=== PATIENT | male | born 1940 | race Caucasian/White ===

== ENCOUNTER 2020-03-11 15:30 | Outpatient (RCR) | payer MEDICARE, SELFPAY ==
--- NOTE | 2020-01-14 15:31 | PTOPEVAL ---
INITIAL PHYSICAL THERAPY EVALUATION and PLAN OF CARE Thank you for referring Casey to [facility]. He will be seen 3x/wk x 1 wk, 2x/wk x 3 wks in PT. Please review, sign, date and return this plan of care KACEY. I agree with and certify that the following plan of care is medically necessary. Referring Physician Date Admitting Provider: Attending Provider: PHYSICIAN NOT ON STAFF Referring Provider: *PT Outpatient Evaluation Start: 01/14/20 13:25 Freq: Status: Active Protocol: Document 01/14/20 13:25 KRISTEN (Rec: 01/14/20 15:13 KRISTEN [id number]) Therapy Assessment Status Assessment Status Assessment Status Evaluation Outpatient Past Medical History Neurological History Hx Neurological Disorders No Significant History Cardiovascular History Hx Hypercholesterolemia Yes Hx Hypertension Yes Respiratory History Hx Respiratory Disorders No Significant History Gastrointestinal History Hx Appendectomy Yes: 1977 Genitourinary History Hx Genitourinary Disorders No Significant History Musculoskeletal History Hx Orthopedic Surgery Yes: R hip resurfaces-2005, R TKA 12/2019,carpal tunnel B 1977 Endocrine History Hx Endocrine Disorders No Significant History HEENT History Hx Cataracts Yes Evaluation Information Problem Diagnosis s/p R TKA Onset 12/23/2019 Subjective Information hospitalized 3 days home Query Text:As Reported By Patient/ health - 3x/wk x 2 wks, 2x/wk Family last week c/o's stiffness Dressing removed on Sunday01/12/20 icing 3x/day back to usual activities - except for vacuuming - doing meals - getting ready to return to driving Sleeping - difficult - R knee pain will awaken him - likes to keep knees bent - discomfort with straightening leg. 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
--- NOTE | 2020-02-11 16:07 | PTOPEVAL ---
PHYSICAL THERAPY RE-EVALUATION and UPDATED PLAN OF CARE Thank you for referring Casey Sheriff to [facility]. He has made good progress towards goals set, but still needs further R eccentric Quad and hip abduction strengthening and upgrading of functional abilities. He will be seen 2x/wk x 2 wks and 1x/wk x 2 wks. Please review, sign, date and return this plan of care KACEY. I agree with and certify that the following plan of care is medically necessary. Referring Physician Date Admitting Provider: Attending Provider: PHYSICIAN NOT ON STAFF Referring Provider: *PT Outpatient Evaluation Start: 01/14/20 13:25 Freq: Status: Active Protocol: Document 02/11/20 14:35 KRISTEN (Rec: 02/11/20 16:07 KRISTEN [id number]) Therapy Assessment Status Assessment Status Assessment Status Re-evaluation Evaluation Information Problem Subjective Information Casey reports sleeping is Query Text:As Reported By Patient/ improving but will still Family awaken from sleep. Placing ice on the knee helps him return to sleep. He also uses heating pad on R inner thigh for discomfort there from tight musculature. Able to walk carefully on grass over to son's home but avoid walking in field where there were larger dirt clods. Going up and down stairs more - comfortable going up, not as much going down. Pain Assessment Timing of Pain Assessment Timing of Pain Assessment Assessment Pain Scale Pain Scale Used Numeric (1 - 10) Self Report Pain Assessment Right Knee(s) Reported Pain Level 0 Lowest Pain Intensity 0 Greatest Pain Intensity 2 Pain Score Pain Score 0: Self Report Lower Extremity Range of Motion Knee Range of Motion Right Knee Flexion Range of Motion - Active 127 Knee Extension Range of Motion - Active 0 Query Text: Knee Range of Motion Limitations Soft Tissue Restriction Knee Range of Motion Comments sitting - 125 above measurements done in supine Lower Extremity Muscle Strength Testing Hip Strength Right Hip Flexion Strength 4+ Good + Hip Extension Strength 5 Normal Hip Abduction Strength 4- Good - Hip Medial Rotation Strength 5 Normal Hip Lateral Rotation Strength 4 Good Left Hip Flexion Strength 5 Normal Hip Extension Strength 4 Good Hip Abduction Strength 4 Good Hip Medial Rotation Strength 5 Normal
--- NOTE | 2020-03-11 16:52 | PTOPEVAL ---
PHYSICAL THERAPY DISCHARGE SUMMARY Thank you for referring Casey Sheriff to [facility]. Casey was seen for a total of 16 visits. He has met all goals set. I agree with Casey's discharge from PT. Referring Physician Date Admitting Provider: Attending Provider: PHYSICIAN NOT ON STAFF Referring Provider: *PT Outpatient Evaluation Start: 01/14/20 13:25 Freq: Status: Active Protocol: Document 03/11/20 15:30 KRISTEN (Rec: 03/11/20 16:51 KRISTEN [email or web address]) Therapy Assessment Status Assessment Status Assessment Status Discharge Evaluation Information Problem Subjective Information Casey reports that he hasn't Query Text:As Reported By Patient/ used ice or heat on R knee/leg Family for the last 2 weeks. He is doing better with reciprocally climbing back steps - railing to hold onto. Able to walk over to son's home - uneven ground, rocks, etc without problems. No difficulty performing usual ADLs, IADLs. Pain Assessment Timing of Pain Assessment Timing of Pain Assessment Assessment Pain Scale Pain Scale Used Numeric (1 - 10) Self Report Pain Assessment Right Knee(s) Reported Pain Level 0 Lowest Pain Intensity 0 Greatest Pain Intensity 0 Pain Score Pain Score 0: Self Report Lower Extremity Range of Motion Knee Range of Motion Right Knee Flexion Range of Motion - Active 135 Knee Extension Range of Motion - Active 0 Query Text: Lower Extremity Muscle Strength Testing Hip Strength Right Hip Flexion Strength 4+ Good + Hip Extension Strength 5 Normal Hip Abduction Strength 4+ Good + Hip Medial Rotation Strength 5 Normal Hip Lateral Rotation Strength 4+ Good + Knee Strength Right Knee Flexion Strength 5 Normal Knee Extension Strength 5 Normal Balance Assessment Time Up Go (TUG) Assistive Devices None Comments 11.19 sec 5 Time Sit to Stand Time in Seconds 14.31 5 Time Sit to Stand Comments no hands used with testing Query Text:Normative Data: If Greater Than 15 Seconds, 74% Increase Risk for Recurrent Falls Gait Assessment Gait Pattern Assessment Other Gait Observations symmetrical gait pattern - stance/swing phases, no assistive device, normal bhumi PT Clinical Summary Clinical Summary Protocol: PTEVCODE PT Clinical Summary WOMAC pain score 15% physica
== END 2020-03-12 08:29 | disposition home or self-care (01) ==
LOC: ANHPT 15:30
DX: Z47.1 Aftercare following joint replacement surgery (principal); Z96.651 Presence of right artificial knee joint
CPT/HCPCS: 97110; 97161

== ENCOUNTER 2021-01-05 09:00 | Outpatient (RCR) | payer MEDICARE, SELFPAY ==
--- NOTE | 2020-11-26 16:24 | PTOPEVAL ---
INITIAL PHYSICAL THERAPY EVALUATION and PLAN OF CARE Thank you for referring Casey Sheriff to [facility].? Casey is scheduled to be seen for physical therapy? 1x/week for 4 weeks. Please review, sign, date and return this plan of care KACEY. I agree with and certify that the following plan of care is medically necessary. Referring Physician Date Admitting Provider: Attending Provider: Urvashi Perdomo, ANP Referring Provider: *PT Outpatient Evaluation Start: 11/26/20 15:07 Freq: Status: Active Protocol: Document 11/26/20 15:05 KRISTEN (Rec: 11/26/20 16:23 KRISTEN [id number]) Therapy Assessment Status Assessment Status Assessment Status Evaluation Outpatient Past Medical History Past Medical History Source of Past Medical History Recalled from Previous Visit, Confirmed with Patient/Family Neurological History Hx Neurological Disorders No Significant History Cardiovascular History Hx Aneurysm Yes: 4 cm in size - watching it Hx Hypercholesterolemia Yes Hx Hypertension Yes Respiratory History Hx Respiratory Disorders No Significant History Gastrointestinal History Hx Appendectomy Yes: 1977 Genitourinary History Hx Genitourinary Disorders No Significant History Musculoskeletal History Hx Orthopedic Surgery Yes: R hip resurfaces-2005, R TKA 12/2019,carpal tunnel B 1977 Endocrine History Hx Endocrine Disorders No Significant History HEENT History Hx Cataracts Yes Hx Tonsillectomy Yes: at age 8 Evaluation Information Problem Diagnosis balance issues/ LE weakness Onset a little bit prior to R TKA Subjective Information Difficulty on uneven ground - Query Text:As Reported By Patient/ sometimes needs to over Family correct - being aware of change of position - may need to take an extra step to prevent from losing his balance. His mother had similar issues. In shower - with eyes closed - needs to be sure he is touching the wall with an elbow or forearm to be sure that he doesn't lose his balance. 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
--- NOTE | 2020-12-15 09:26 | PCPTNOTE ---
Patient did not show up for scheduled appointment this date. Phoned patient - he thought his appointment was at 3:00 pm this date. Rescheduled him for 9:00 12/17/2020.
--- NOTE | 2021-01-05 11:22 | PTOPEVAL ---
PHYSICAL THERAPY DISCHARGE SUMMARY Thank you for referring Casey Sheriff to [facility].? 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 He is ready for discharge from PT to [facility]. I agree with Casey's discharge from PT. Referring Physician Date Admitting Provider: Attending Provider: Urvashi Perdomo, ANP Referring Provider: Therapy Assessment Status Assessment Status Assessment Status Discharge Evaluation Information Problem Diagnosis balance issues/ LE weakness Subjective Information Casey reports that vertigo is Query Text:As Reported By Patient/ still there - but not as Family severe. Doing corrective technique - barbeque roll - on a daily basis. Doing okay with walking on uneven ground. Still has his misstep every once in awhile but some improved control. Pain Assessment Timing of Pain Assessment Timing of Pain Assessment Assessment Self Report Self Report Pain Level 0 Pain Score Pain Score 0: Self Report Lower Extremity Muscle Strength Testing Hip Strength Bilateral Hip Flexion Strength 4+ Good + Hip Extension Strength 5 Normal Hip Abduction Strength 4+ Good + Hip Medial Rotation Strength 5 Normal Hip Strength Comments ER - R 3+/5 L 5/5 Balance Assessment Dupree Balance Assessment Sitting to Standing Independent w/out Hands Unsupported Stance Ability Safely- 2 minutes Sitting Unsupported, Feet on Floor Safely- 2 minutes Standing to Sitting Safely, Minimal Hand Use Transfer Ability Safely, Minimal Hand Use Unsupported Stance- Eyes Closed Safely, 10 seconds Unsupported Stance- Feet Together Independent, 1 minute Reaching Forward while Standing Confidently, 10 inches decision support analyst Object From Floor Independent/Safe Look Behind Shoulder - Standing Shifts Weight Well Turning 360 Degrees Turns Bilateral, < 4 secs Unsupported Stance, Alternating Feet on (I)- 8 Steps in 20 secs Stair Unsupported Tandem Stance Small Step- 30 seconds Unilateral Leg Stance Lifts Leg/Holds > 3 secs DUPREE Balance Evaluation Total Score (/56 52 points) Comments standing on foam - with eyes open - mild increase with sway with eyes closed - mild sway initially - then good control - stopped testing at 30 sec. Time Up Go (TUG) Assistive Devices None Comments 12.37 sec 5 Time Sit to Stand 5 Time Si
== END 2021-01-13 11:24 | disposition home or self-care (01) ==
LOC: ANHHIPT 09:00
PROVIDERS: PCP Physician Assistant Medical; Visit Provider Physician Assistant Medical
DX: R26.89 Other abnormalities of gait and mobility (principal); M62.81 Muscle weakness (generalized)
CPT/HCPCS: 97110; 97162

== ENCOUNTER 2021-07-15 07:36 | Outpatient (CLI) | payer MEDICARE, SELFPAY | END 2021-07-15 07:37 | disposition home or self-care (01) | LOC: ANHAUDIO 07:41 | PROVIDERS: PCP Physician Assistant Medical; Visit Provider Otolaryngology | DX: R42 Dizziness and giddiness (principal) | CPT/HCPCS: 92537; 92540; 92546 ==

== ENCOUNTER 2022-09-14 07:13 | Outpatient (CLI) | payer MEDICARE, SELFPAY ==
--- NOTE | ~2022-09-14 | MR_ITS ---
EXAMINATION: MR brain/brain stem wo/w con DATE: 09/14/2022 08:31 INDICATION: Gait abnormality. TECHNIQUE: Magnetic resonance imaging (MRI) of the brain and brainstem was performed without and with 19 mL MultiHance intravenous contrast. COMPARISON: None. FINDINGS: There is an old infarct in right cerebellum. There is an old lacunar infarct in right cauda te nucleus. There is a developmental venous anomaly in left frontal lobe. There are scattered areas o f nonspecific increased T2-weighted signal intensity in the cerebral white matter. There is no intrac ranial hemorrhage, acute infarction, or abnormal intracranial mass lesion. The ventricles are normal in size. There are likely changes of ocular lens replacement surgeries. The paranasal sinuses are monalisa ar. The mastoid air cells are normal. IMPRESSION: 1. 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 2. Moderate nonspecific cerebral white matter disease, which likely represents chronic small vessel i schemic disease. Reviewed, dictated and finalized at location A. DEVELOPER IMPRESSION: 1. 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 2. Moderate nonspecific cerebral white matter disease, which likely represents chronic small vessel ischemic disease.
== END 2022-09-14 07:14 | disposition home or self-care (01) ==
PROVIDERS: PCP Family Medicine
DX: R26.9 Unspecified abnormalities of gait and mobility (principal); R94.02 Abnormal brain scan
CPT/HCPCS: 70553; A9577

== ENCOUNTER 2023-03-08 13:30 | Outpatient (RCR) | payer MEDICARE, SELFPAY ==
--- NOTE | 2023-02-08 14:56 | PTOPEVAL1 ---
Assessment and note entered by Emilie Irby, PT Evaluation Information Assessment Status Evaluation Diagnosis gait abnormality Onset 3-4 years Subjective Information Gradual onset, over the last 3-4 years has gotten significantly worse History of family balance issues with mother States he worries that he might fall, carries a cane with him in the car but hasn't used it. Reports showering and closing eyes, has to hang on to something Reports cannot stand on one foot. Denies dizzy spells Reported Pain Level Pain Score 1: Self Report Assessment PT Clinical Summary Pt reports decreased balance that has progressed over the last 3-4 years. Reports Neurologist found in MRI what may have been presence of a prior stroke, but otherwise is unremarkable. Pt denie's dizziness with position changes, but notes greatly increased balance deficit with eyes closed activities. Pt evaluation shows gait abnormalities , mildly decrease LE strength and ROM, and significant balance deficits especially with small base of support activities. Pt will benefit from physical therapy in order to improve vestibular system, balance, strength, and gait to improve pt confidence in mobility and activity. Plan of Care Interventions Gait Training,Neuro Re-education,Patient/Caregiver Educati,Therapeutic Activities,Therapeutic Exercise,Self-Care/Home Management PT Services Indicated Yes Treatment Frequency and 2x weekly x 8 weeks Duration These treatments will address the objective and functional deficits as defined above. The patient will be advanced safely and appropriately in order for the patient to progress towards his/her prior level of function. Additional exercises will be introduced and as well as a comprehensive home exercise program upon discharge, if needed, ?to ensure carryover of functional gains achieved in the clinic. This treatment plan has been reviewed and agreement upon by the patient.
--- NOTE | 2023-03-08 14:44 | PTOPDC ---
Assessment and note entered by Emilie Irby, PT Assessment Status Discharge Diagnosis gait abnormality Onset 3-4 years Subjective Information Pt reports still has to be very careful about his balance. Especially with uneven, rough ground, tall grass. Reports his sister said she thinks therapy is doing well b/c she couldn't hear him walking down the wills. Pt reports feels has made a small amount of improvement in walking since starting therapy. Pt feels is primarily pain in left hip effecting balance because favors left hip. Reported Pain Level Pain Score 3: Self Report Assessment PT Clinical Summary Pt has attended therapy consistently for balance and gait issues. States he feels mildly improved in his walking and balance, but his sister noticed that she can't hear him walk down the hallway any more. Evaluation shows improvements in DUPREE balance testing and in 5 times sit to stand testing. However in both balance tests and gait assessment, pt noted to favor left hip significantly. Pt has reported left hip pain of varying levels and has modified treatments in therapy based on left hip pain. Pt feels his hip pain is currently his largest limiting factor in his gait and balance and is addressing his hip pain with referral to Orthopeadic Specialist on 10/27. Evaluation today shows mild/moderately decreased ROM of the left hip, significantly decreased strength, flexibility issues with hip flexors, and tenderness and tone to the gluteus minimus with palpation. Pt will benefit from therapy to address both issues to improve overall functional ability. However pt has opted to seek therapy under care of Ortho for continuity of care at this time. Thus pt will continue therapy with additional focus on hip pain pending Orthopeadic consult findings is will be discharged from current plan of care.
== END 2023-03-08 15:06 | disposition still patient (30) ==
LOC: ANHHIPT 13:30
PROVIDERS: PCP Family Medicine
DX: R26.9 Unspecified abnormalities of gait and mobility (principal)
CPT/HCPCS: 97110; 97112; 97161

== ENCOUNTER 2023-06-11 08:45 | Outpatient (RCR) | payer MEDICARE, SELFPAY ==
--- NOTE | 2023-03-23 10:36 | PTOPEVAL1 ---
Assessment and note entered by Emilie Irby, PT Evaluation Information Assessment Status Evaluation Diagnosis Trochanteric Bursitis left hip Therapy Diagnosis Left hip pain, gait abnormality, weakness Onset over the last 6 months Subjective Information Saw Dr. Andrews for left hip pain 03/19/23. Didn 't see any change immediately but after a few days pain improved. Reports though a few days later was on tractor for 3 hours and then mower for 3 hours. Reports after these legs were shaky and weak, wasn't sure was going to make it into his house. MD advised use of a cane for ambulation. Reported Pain Level Pain Score 0: Self Report Assessment PT Clinical Summary Pt presents with c/o left hip pain for the last 6 months. Recently received a steroid shot earlier this week which after a few days improved pain however will still get pain up to 8/10 at worst rating since shot. Pt demos decreased flexibility and joint ROM, decreased strength, decreased balance, and gait abnormalities with therapy evaluation today. Thus patient will benefit from therapy to address deficits and decrease pain to allow function without pain. Plan of Care Interventions Electrical Stimulation,Hot Pack/Cold Pack,Manual Therapy,Neuro Re-education,Therapeutic Activities, Therapeutic Exercise,Ultrasound PT Services Indicated Yes Treatment Frequency and 2x weekly x 8 weeks Duration These treatments will address the objective and functional deficits as defined above. The patient will be advanced safely and appropriately in order for the patient to progress towards his/her prior level of function. Additional exercises will be introduced and as well as a comprehensive home exercise program upon discharge, if needed, ?to ensure carryover of functional gains achieved in the clinic. This treatment plan has been reviewed and agreement upon by the patient.
--- NOTE | 2023-04-16 10:03 | PTOPPROG ---
Assessment and note entered by Emilie Irby, PT Assessment Status Progress Diagnosis trochanteric Bursitis left hip Therapy diagnosis unsteadiness on feet, pain in left hip, weakness Onset over the last 6 months Subjective Information Pt reports hip is a 1-2/10. Pt reports when laying flat on back is when hip feels the best. 70% improvement overall, pain comes and goes, and concern is it coming back or if the steroid is wearing Reports exercise of forward and back cares me . Does not know when the point of no return is. Advised use of strap on wrist to keep cane within reach. Reports 50% improvement in balance and gait. States knows several more techniques that have been helpful Assessment PT Clinical Summary Pt reports feeling 70% improved overall in hip pain since steroid shot with Orthopeadic specialist. Only 30% remaining pt reports is due to fear of steroid wearing off. Pt reports for balance and ambulation feels 50% improved, stating has received a lot of education and tips to improve mobility he uses at home. He is consistent in home exercises and is currently consistent in use of cane when entering therapy sessions. Pt has met multiple goals for therapy however cont to require improvement in balance and especially sit> stand mobility. Pt has met goals for his hip pain, knowledge of home program, hip ROM, and flexibility to improve gait. Pt is progressing in his strength however appears to have regressed in sit>stand and gait secondary to increased time to perform activities. Pt demo's greatly improved ability to sit>stand after education and practice in clinic. Will benefit from continued therapy to continue progression and improvement in mobility. Plan of Care Interventions Electrical Stimulation,Hot Pack/Cold Pack,Manual Therapy,Neuro Re-education,Therapeutic Activities, Therapeutic Exercise,Ultrasound PT Services Indicated Yes Treatment Frequency and 2x weekly x 4 weeks Duration These treatments will address the objective and functional deficits as defined above. The patient will be advanced safely and appropriately in order for the patient to progress towards his/her prior level of function. Additional exercises will be introduced and as well as a comprehensive home exercise program upon discharge, if needed, ?to ensure carryover of functional gains achieved in the clinic. This treatment plan has been reviewed and agreement upon by the
--- NOTE | 2023-04-30 10:03 | PTOPPROG ---
Assessment and note entered by Emilie Irby, PT Assessment Status Progress Reports Diagnosis trochanteric Bursitis left hip, gait and balance Onset over the last 6 months Subjective Information Reports less pain in the left hip. Balance and gait reports is about the same Using cane for ambulation. Did a lot of walking yesterday and last night hip was burning but is better today. Was up to an 8/10 yesterday but was walking all day . Assessment PT Clinical Summary Pt reports increased hip pain yesterday after walking mulitple hours, but is better today. Cont to demo endurance and strength deficits, but improving balance and gait scores. Pt reports he is working on his walking, getting up and down the correct way and uses his cane consistently. Pt is going out of town for a few weeks and will practice his walking and mobility wihle he is gone . He would [facility], final education on balance and gait to empower patient to continue progression on his own. Plan of Care Interventions Electrical Stimulation,Hot Pack/Cold Pack,Manual Therapy,Neuro Re-education,Therapeutic Activities, Therapeutic Exercise,Ultrasound PT Services Indicated Yes Treatment Frequency and 2x weekly x 3-4 weeks upon return from vacation Duration These treatments will address the objective and functional deficits as defined above. The patient will be advanced safely and appropriately in order for the patient to progress towards his/her prior level of function. Additional exercises will be introduced and as well as a comprehensive home exercise program upon discharge, if needed, ?to ensure carryover of functional gains achieved in the clinic. This treatment plan has been reviewed and agreement upon by the patient.
--- NOTE | 2023-06-11 13:26 | PTOPDC ---
Assessment and note entered by Emilie Irby, PT Assessment Status Discharge Diagnosis trochanteric Bursitis left hip Onset over the last 6 months Subjective Information Self-perceived improvement:75% Every once in a while that hip will go up to a 2-3 /10 but this is the highest it's been recently. Pain increases with sitting long periods of ~2 hours. Was in the car multiple hours yesterday uses cushion that props him to his right which helps but yesterday didnt' have it. Feels still has balance deficits. Reported Pain Level Pain Score 0: Self Report Assessment PT Clinical Summary Pt has attended therapy consistently for left hip pain, strengthening, gait and balance issues. Pt has met all therapist related goals with exception of highest pain level being ranked at a 3/10 with goal of 2/10. Pt reports much improved overall with greater knowledge of mobility, and balance training, and greater ease of movement overall. Has been using his cane consistently for just in case and is minimally reliant on is in testing today. Pt reports feeling 75% improved overall with remainder being continued balance deficits. As patient has met all goals, and has been educated in appropriate mild deficits, pt is being discharged from therapy services at this time.
== END 2023-06-11 13:34 | disposition home or self-care (01) ==
LOC: ANHHIPT 08:45
PROVIDERS: PCP Family Medicine; Visit Provider Orthopaedic Surgery
DX: M70.62 Trochanteric bursitis, left hip (principal)
CPT/HCPCS: 97110; 97112; 97116; 97140; 97162; 97530; 97750

== ENCOUNTER 2023-12-31 14:32 | Outpatient (CLI) | payer MEDICARE, SELFPAY ==
--- NOTE | ~2023-12-31 | US_ITS ---
Renal-Bladder ultrasound Clinical History: Chronic kidney disease Technique: Real-time sonographic imaging of the kidneys and urinary bladder was performed. Findings: The right kidney measures 10.5 cm in length and the left kidney measures 9.4 cm. There is n o hydronephrosis or renal calculus identified. Renal cortical echogenicity is within normal limits. 3 .4 cm right upper pole renal cyst present.. 3.0 cm left upper pole renal cyst present. The urinary bladder is moderately distended at the time of this exam. No intraluminal echoes are iden tified. No abnormal wall thickening is seen. Impression: No significant abnormality seen. Reviewed, dictated and finalized at location . [facility] Impression: No significant abnormality seen.
== END 2023-12-31 14:33 | disposition home or self-care (01) ==
PROVIDERS: PCP Family Medicine; Visit Provider Internal Medicine Nephrology
DX: I12.9 Hypertensive chronic kidney disease with stage 1 through stage 4 chronic kidney disease, or unspecified chronic kidney disease (principal); N18.4 Chronic kidney disease, stage 4 (severe)
CPT/HCPCS: 76775

== ENCOUNTER 2024-03-11 11:15 | Outpatient (RCR) | payer MEDICARE, SELFPAY ==
--- NOTE | 2024-02-25 17:04 | OPREHPOC ---
Outpatient Therapy Plan of Care This is a Multidisciplinary Plan of Care that may contain components documented by all disciplines (PT, OT, and ST.) PT Goal 1 Goal Pt will be independent in HEP Pt will verbalize understanding of diagnosis and prognosis Target Visit 10 PT Problem 2 PT Problem #2 Pain PT Goal 1 Goal Pt will report lowest pain rating at 0/10 to show improvement in overall discomfort Target Visit 10 PT Goal 2 Goal Pt will report greatest pain level at 3/10 or less to improve ADLs and activities Target Visit 20 PT Problem 3 PT Problem #3 Impaired Strength PT Goal 1 Goal Pt will demo strength of 3+/5 ceirra in gluteus medius and ortiz Target Visit 12 PT Problem 4 PT Problem #4 Impaired Gait PT Goal 1 Goal Pt will demo 150 ft with LRAD in 2 min walk test Target Visit 10 PT Goal 2 Goal Pt will demo appropriate equal bhumi, and step length with LRAD Target Visit 20
--- NOTE | 2024-02-25 17:04 | PTOPEVAL1 ---
Assessment and note entered by Emilie Irby, PT Evaluation Information Assessment Status Evaluation Diagnosis weakness Therapy conditions oth. abnormalities of gait and mobility pain in left ankle/foot pain in right ankle/foot Onset 02/13/2024 Subjective Information Pt reports was in the hospital for one night because ankles were so painful and couldn't stand. Reports was in [facility] one night, fluids and anti- biotic. Gave relief but feet are discolored and ankles are puffed up again, and over the arch is puffy and discolored. 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 Reports feet are really hurting today, in bunion area, arch, and ankles today. Is really difficult to stand up. Was about 3 days in bed because didn' t want to get up. Has a rollator uses in the house but uses cane outside. When goes to town doesn't mess with the rollator. Has a borrowed hand wheel chair. Also has a used lift chair now and I like it . Reports is able to get up with little effort and can use the rollator easily. Reported Pain Level Pain Score 5,4: Self Report Assessment PT Clinical Summary Pt presents with diagnosis of weakness. Pt states has not been up much due to pain in ankles/feet. Redness and tenderness to cierra bunions may be increased due to shoe jansen. Demo's decreased strength and mobility overall with very poor gait pattern and decreased hip flexibility and strength . Deficits appear correlated to pain in feet. Pt will greatly benefit from therapy to improve strength, endurance, and to educate in modifications to allow maximal independence and activity wth least amount of discomfort whilst feet are improving. Plan of Care Interventions Electrical Stimulation,Gait Training,Hot Pack/Cold Pack,Manual Therapy,Neuro Re-education,Patient/ Caregiver Educati,Therapeutic Activities, Therapeutic Exercise,Ultrasound,Other Other Interventions iontophoresis, phonophoresis, taping PT Services Indicated Yes Treatment Frequency and 1-2x weekly x 20 visits Duration These treatments will address the objective and functional deficits as defined above. The patient will be advanced safely and appropriately in order for the patient to progress towards his/her prior level of function. Additional exercises will be introduced and as well as a comprehensive
--- NOTE | 2024-03-19 17:24 | PTOPDC ---
Assessment and note entered by Emilie Irby, PT Assessment Status Discharge - Pt Not Present Diagnosis weakness Onset 02/13/2024 Subjective Information Pt reports was in the hospital for one night because ankles were so painful and couldn't stand. Reports was in [facility] one night, fluids and anti- biotic. Gave relief but feet are discolored and ankles are puffed up again, and over the arch is puffy and discolored. 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 Reports feet are really hurting today, in bunion area, arch, and ankles today. Is really difficult to stand up. Was about 3 days in bed because didn' t want to get up. Has a rollator uses in the house but uses cane outside. When goes to town doesn't mess with the rollator. Has a borrowed hand wheel chair. Also has a used lift chair now and I like it . Reports is able to get up with little effort and can use the rollator easily. Assessment PT Clinical Summary Pt called today to cancel the remainder of his appointments and discharge himself from therapy, stating he will return when he wants to seek services. Thus patient is being discharged per patient request. Plan of Care PT Services Indicated No
== END 2024-03-28 13:54 | disposition home or self-care (01) ==
LOC: ANHHIPT 11:15
PROVIDERS: PCP Physician Assistant Medical; Visit Provider Physician Assistant Medical
DX: M11.20 Other chondrocalcinosis, unspecified site (principal)
CPT/HCPCS: 97110; 97116; 97140; 97162; 97530

== ENCOUNTER 2024-05-09 14:33 | Outpatient (CLI) | payer MEDICARE, SELFPAY ==
--- NOTE | 2024-05-09 14:42 | ECG_ITS ---
Test Date: 2024-05-09 14:56:43 Measurements Intervals [place] Rate: 67 P: 15 ND: 176 QRS: -20 QRSD: 80 T: 6 QT: 376 QTc: 398 Interpretive Statements SINUS RHYTHM BORDERLINE T WAVE ABNORMALITY- INFERIOR LEADS BASELINE ARTIFACT- I, II, AVR, V1-V2, V6 BORDERLINE ECG No previous ECG available for comparison Electronically Signed On 05-09-2024 15:18:49 CDT by Alvaro Casanova D.O.
== END 2024-05-09 14:34 | disposition home or self-care (01) ==
PROVIDERS: PCP Physician Assistant Medical
DX: M1A.39X1 Chronic gout due to renal impairment, multiple sites, with tophus (tophi) (principal); R94.31 Abnormal electrocardiogram [ECG] [EKG]
CPT/HCPCS: 93005

== ENCOUNTER 2024-10-30 12:30 | Outpatient (RCR) | payer MEDICARE, SELFPAY ==
--- NOTE | 2024-08-13 14:14 | PTOPEVAL1 ---
Assessment and note entered by Briseyda Angeles, PT Evaluation Information Assessment Status Evaluation Diagnosis M62.81 ICD-10 Condition Codes (PT) Repeated falls R29.6,Difficulty Walking R26.2,R26. 9,Weakness R53.1 Onset approx 4 months ago Subjective Information Pt reports had a history of hip resurfacing on RMansoor cavazos his problem started approx 4 months ago when he fell and dislocated his hip. He reports falling 3x in the last 2 months. Twice had his hip dislocated and relocated back at the hospital, reports bilat knees buckle on him causing fall. uses a rollator inside the house but and uses SC when out in the community, has increased difficulty with getting in and out of the car but is able to manage. Denies any pain, however during gout flare ups, gout pain is felt on ankles, fingers and toes. He is currently on infusion treatment program for gout in [place], [place] which helped immensely. Pt 's personal goal for therapy is to be able to get stronger and improve his balance to walk better. Reported Pain Level Pain Score 0: Self Report Assessment PT Clinical Summary Pt is an 84 yo male patient who was referred to therapy due to repeated falls and generalized weakness. Pt scored 10/28 on Tinetti Assessment indicating a high risk for falls and 30.27seconds for 5x STS which is also a high risk for falls. Pt is a community ambulator and uses a cane. He will benefit from skilled PT to improve ROM deficits, BLE and general strength, address balance issues and gait impairments with most appropriate AD to improve safe and indep ambulation and reduce risk for falls. Plan of Care Interventions Electrical Stimulation,Gait Training,Hot Pack/Cold Pack,Manual Therapy,Neuro Re-education,Patient/ Caregiver Education,Therapeutic Activities, Therapeutic Exercise,Ultrasound,Other Other Interventions Eleanoring , ABIODUN PT Services Indicated Yes Treatment Frequency and 2x/wk x 12 visits Duration These treatments will address the objective and functional deficits as defined above. The patient will be advanced safely and appropriately in order for the patient to progress towards his/her prior level of function. Additional exercises will be introduced and as well as a comprehensive home exercise program upon discharge, if needed, ?to ensure carryover of functional gains achieved in the clinic. This treatment plan has been reviewed and agreement upon by the patient.
--- NOTE | 2024-09-18 17:19 | PTOPPROG ---
Assessment and note entered by Briseyda Angeles, PT Re-Eval Information Assessment Status Progress Diagnosis M62.81 ICD-10 Condition Codes (PT) Repeated falls R29.6,Difficulty Walking R26.2,R26. 9,Weakness R53.1 Onset approx 4 months ago Subjective Information Pt reports that he gained techniques in lifting feet up the floor when walking, improved awareness and movement. Pt states he receives comments that he is walking better. Reports cont to feel insecure with standing without BUE support, tried walking with a cane only once while in therapy program, however he was feeling unstable. Assessment PT Clinical Summary Pt received a total of 9 treatment sessions. He demos positive gains in mobility and strength, however, he continue to demo balance deficits with Tinetti Score of 13/28 falling under Very High Risk for falls. He also demos significant decline in the past 3 days and feeling exhausted. He is moving forwards with his goal but seems to have a slower progress at this time. He will benefit from continued skilled PT interventions to further improve strength and stability, balance and endurance to reduce risk for falls and cont to perform indep functional mobility. Plan of Care Interventions Electrical Stimulation,Gait Training,Hot Pack/Cold Pack,Manual Therapy,Neuro Re-education,Patient/ Caregiver Educati,Therapeutic Activities, Therapeutic Exercise,Ultrasound,Other Other Interventions IASTM, Taping PT Services Indicated Yes Treatment Frequency and 2x/wk x 12 visits Duration These treatments will address the objective and functional deficits as defined above. The patient will be advanced safely and appropriately in order for the patient to progress towards his/her prior level of function. Additional exercises will be introduced and as well as a comprehensive home exercise program upon discharge, if needed, ?to ensure carryover of functional gains achieved in the clinic. This treatment plan has been reviewed and agreement upon by the patient.
--- NOTE | 2024-10-31 16:59 | PTOPPROG ---
Assessment and note entered by Briseyda Angeles, PT Re-Eval Information Assessment Status Progress Diagnosis M62.81 ICD-10 Condition Codes (PT) Repeated falls R29.6,Difficulty Walking R26.2, Abnormalities of gait and mobility R26.9,Weakness R53.1 Onset approx 4 months ago Subjective Information Pt reports he is feeling more confident walking and moving around without the hip brace, confident about travelling. States compliant with HEPs at home. Assessment PT Clinical Summary Pt demos good progress with therapy and has partially met his goals. Continue to present balance deficits and postural instability impacting safety with ambulation on uneven surfaces and longer distances. He will benefit from continued skilled PT to work towards achieving LTGs and reduce risk for falls. Plan of Care Interventions Check Out for Orthotic/Prosthetic,Electrical Stimulation,Gait Training,Hot Pack/Cold Pack, Manual Therapy,Neuro Re-education,Patient/ Caregiver Education,Therapeutic Activities, Therapeutic Exercise,Ultrasound,Other Other Interventions IASTM, Taping PT Services Indicated Yes Treatment Frequency and 1-2x/wk x 6 visits Duration These treatments will address the objective and functional deficits as defined above. The patient will be advanced safely and appropriately in order for the patient to progress towards his/her prior level of function. Additional exercises will be introduced and as well as a comprehensive home exercise program upon discharge, if needed, ?to ensure carryover of functional gains achieved in the clinic. This treatment plan has been reviewed and agreement upon by the patient.
== END 2024-11-11 23:59 | disposition home or self-care (01) ==
LOC: ANHHIPT 12:30
PROVIDERS: PCP Physician Assistant Medical; Visit Provider Internal Medicine Rheumatology
DX: R26.2 Difficulty in walking, not elsewhere classified (principal); R53.1 Weakness; R26.9 Unspecified abnormalities of gait and mobility
CPT/HCPCS: 97014; 97110; 97112; 97116; 97140; 97161; 97530; 97750; G0283

== ENCOUNTER 2025-01-01 11:15 | Outpatient (RCR) | payer MEDICARE, SELFPAY ==
--- NOTE | 2024-11-23 15:49 | PTOPPROG ---
Assessment and note entered by Briseyda Angeles, PT Progress Information Assessment Status Progress Diagnosis M62.81 ICD-10 Condition Codes (PT) Repeated falls R29.6,Difficulty Walking R26.2, Abnormalities of gait and mobility R26.9,Weakness R53.1 Onset approx 4 months ago Subjective Information Pt reports that he feels stronger and better nowadays. States using cane for upto 60 ft at home without issues. Assessment PT Clinical Summary Pt demos good progress with therapy and presents with good gains in mobility and strength which result to improved functional mobility and activity tolerance. Pt will benefit from continued therapy for further improvement with more emphasis on balance and ambulation safety using least restrictive device to meet his LTGs and reduce risk for falls. Plan of Care Interventions Check Out for Orthotic/Prosthetic,Electrical Stimulation,Gait Training,Hot Pack/Cold Pack, Manual Therapy,Neuro Re-education,Patient/ Caregiver Education,Therapeutic Activities, Therapeutic Exercise,Ultrasound,Other Other Interventions IASTM, Taping PT Services Indicated Yes Treatment Frequency and 2x/wk x 4 Duration These treatments will address the objective and functional deficits as defined above. The patient will be advanced safely and appropriately in order for the patient to progress towards his/her prior level of function. Additional exercises will be introduced and as well as a comprehensive home exercise program upon discharge, if needed, ?to ensure carryover of functional gains achieved in the clinic. This treatment plan has been reviewed and agreement upon by the patient.
--- NOTE | 2024-11-25 13:27 | PCPTNOTE ---
Patient called office to cancel all appointment for this week (11/24 - 11/28) due to being sick.
--- NOTE | 2025-01-01 12:38 | PTOPPROG ---
Assessment and note entered by Briseyda Angeles, PT Re-Evaluation Information Assessment Status Progress Diagnosis M62.81 ICD-10 Condition Codes (PT) Repeated falls R29.6,Difficulty Walking R26.2, Abnormalities of gait and mobility R26.9,Weakness R53.1 Onset approx 4 months ago Subjective Information Pt reports feeling a shortness of breath last week but is feeling much better today. He had a flu for ~10 days, was having diarrhea and exhaustion. Reports had a gout flare up during the course of the flu that is limiting his functional mobility. Assessment PT Clinical Summary Re-evaluation completed this visit due to patient being off of therapy treatment sessions for >2 weeks due to a Influenza-A. Denies hospitalization , reports was only needing rest and hydration at home. Currently presents a set-back with strength and endurance, also noted postural, balance, coordination and gait impairments. Pt will benefit from continued skilled PT intervention to address deficits and further improve safety in performing indep functional mobility and to reduce risk for falls. Plan of Care Interventions Check Out for Orthotic/Prosthetic,Electrical Stimulation,Gait Training,Hot Pack/Cold Pack, Manual Therapy,Neuro Re-education,Patient/ Caregiver Education,Therapeutic Activities, Therapeutic Exercise,Ultrasound,Other Other Interventions IASTM, Taping PT Services Indicated Yes Treatment Frequency and 2x/wk x 8 Duration These treatments will address the objective and functional deficits as defined above. The patient will be advanced safely and appropriately in order for the patient to progress towards his/her prior level of function. Additional exercises will be introduced and as well as a comprehensive home exercise program upon discharge, if needed, ?to ensure carryover of functional gains achieved in the clinic. This treatment plan has been reviewed and agreement upon by the patient.
--- NOTE | 2025-01-08 13:47 | PTOPDC ---
Assessment and note entered by Emilie Irby, PT Evaluation Information Assessment Status Discharge - Pt Not Present Diagnosis M62.81 ICD-10 Condition Codes (PT) Repeated falls R29.6,Difficulty Walking R26.2, Abnormalities of gait and mobility R26.9,Weakness R53.1 Assessment PT Clinical Summary Pt is having a very difficult time getting to therapy since having had the flu. He tried to come in today and did not have the energy. He states he was fearful of falling in the parking lot. Pt was called, and it was discussed and agreed that for now while recovering from the flu, patient will benefit from home health therapy until he feels recovered enough to return to outpatient therapy. Thus his currently plan of care is being discharged with plans of returning at a later date . Plan of Care PT Services Indicated No
== END 2025-01-09 10:44 | disposition home or self-care (01) ==
LOC: ANHHIPT 11:15
PROVIDERS: PCP Physician Assistant Medical; Visit Provider Internal Medicine Rheumatology
DX: R26.2 Difficulty in walking, not elsewhere classified (principal); R53.1 Weakness; R26.9 Unspecified abnormalities of gait and mobility
CPT/HCPCS: 97110; 97116; 97530; 97750

== ENCOUNTER 2025-04-09 10:45 | Outpatient (RCR) | payer MEDICARE, SELFPAY ==
--- NOTE | 2025-03-23 08:33 | BUOTOPEVAL ---
Assessment and note entered by Saw Colindres, JALEN/Jitendra, CHT OT Evaluation Information 03/20/25 Assessment Status Evaluation Diagnosis R26.81, R42, M19.90, M47.816, R41.82 Subjective Information Patient reporting a decline in strength and balance, reporting 2 falls in the last 6 months. He reports feeling unsteady when sitting on the edge of the bed and fearful that he will lost his balance and end up on the floor. 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 They help with cleaning, laundry, and breakfast/lunch. Family helps with dinners and the patient heats meals up. He uses a rollator in the home. He reports he is independent with ADLs and his biggest goal is to stay independent and in his home. He has a walk-in shower, hand held shower head, seat, and grab bars. Reported Pain Level Pain Score 0: Self Report Assessment OT Clinical Summary Patient evaluated by OT this afternoon. Patient demonstrating decreased functional strength, endurance, balance, and safety for ADLs. Skilled OT indicated for therapeutic exercise, HEP instruction, and therapeutic activities to facilitate improved strength, balance, and safety awareness to reduce fall risk and improve overall safety and independence with ADLs. Plan of Care Interventions Therapeutic Exercise,Therapeutic Activities,Self- Care/Home Management OT Services Indicated Yes Treatment Frequency and 1-2x/week for 8 visits Duration These treatments will address the objective and functional deficits as defined above. The patient will be advanced safely and appropriately in order for the patient to progress towards his/her prior level of function. Additional exercises will be introduced and as well as a comprehensive home exercise program upon discharge, if needed, ?to ensure carryover of functional gains achieved in the clinic. This treatment plan has been reviewed and agreement upon by the patient.
--- NOTE | 2025-03-23 08:33 | OPREHPOC ---
Outpatient Therapy Plan of Care This is a Multidisciplinary Plan of Care that may contain components documented by all disciplines (PT, OT, and ST.) OT Problem 1 OT Problem #1 Knowledge Deficit OT Goal 1 Goal / Goal Update Patient to be independent with instructed materials. Target Visit 8 OT Problem 2 OT Problem #2 Impaired Balance OT Goal 1 Goal / Goal Update 1. To increase functional balance and safety with ADLs, patient to be able to complete functional activities in unsupported sitting x10 minutes without UE support and no posterolateral leaning. Target Visit 8 OT Problem 3 OT Problem #3 Impaired Strength OT Goal 1 Goal / Goal Update 1. Patient to improve functional UB strength for ADLs as demonstrated by improving (R) shoulder strength to 4/5, (R) elbow/wrist strength to 4+/5, and (L) elbow/wrist strength to 4/5. 2. Patient to improve bilateral pastry supervisor strengths by 5 lbs. or more. Target Visit 8
--- NOTE | 2025-04-01 18:15 | PTOPEVAL1 ---
Assessment and note entered by Briseyda Angeles, PT Evaluation Information Assessment Status Evaluation Diagnosis R26.81, R42, M19.90, M47.816, R41.82 ICD-10 Condition Codes (PT) Difficulty Walking R26.2,Abnormalities of gait and mobility R26.9,Weakness R53.1,Dizziness and Giddiness R42 Onset couple months ago Subjective Information Reports dizziness when moving head really fast especially when laying on the R side and rolling to the L side in bed, he would feel spinning sensation that would last minutes. [place] it this morning. looking up and looking down also triggers the spinning sensation but not as much. States he received HHPT for a month for back pain; States that last Sunday, fell on his buttocks due to missing the chair as he tried to sit down. BLE hips and knees don't hurt but feels weak. Last fall was 3 months ago. Reported Pain Level Pain Score 7,0: Self Report Pain Score 0: Self Report Assessment PT Clinical Summary Pt presents to therapy in a w/c with c/o sporadic dizziness, noticeable during transfers transitions , or sitting/standing and incorporating head movements. Pt demos nystagmus with dizziness during Jett Hallpike test lasting for 15-20 seconds with head turns bilaterally. Denies any nausea or headache. Also presents with significant stiffness to neck and shoulder muscles, weakness to BLEs, postural dysfunction, decreased endurance with significant dyspnea on exertion. Pt may benefit from skilled PT intervention to improve mobility, endurance, strength and balance in order to continue performing indep functional mobility at home with appropriate AD and reduce risk for falls. Plan of Care Interventions Check Out for Orthotic/Prosthetic,Electrical Stimulation,Gait Training,Hot Pack/Cold Pack, Manual Therapy,Neuro Re-education,Patient/ Caregiver Education,Therapeutic Activities, Therapeutic Exercise,Ultrasound,Other Other Interventions Taping PT Services Indicated Yes Treatment Frequency and 1-2x/wk x 16 visits Duration These treatments will address the objective and functional deficits as defined above. The patient will be advanced safely and appropriately in order for the patient to progress towards his/her prior level of function. Additional exercises will be introduced and as well as a comprehensive home exercise program upon discharge, if needed, ?to ensure carryover of functional gains achieved in the clinic. This treatment plan has been reviewed and agreement upon by the patient.
--- NOTE | 2025-04-01 18:15 | OPREHPOC ---
Outpatient Therapy Plan of Care This is a Multidisciplinary Plan of Care that may contain components documented by all disciplines (PT, OT, and ST.) PT Problem 1 PT Problem #1 Knowledge Deficit PT Goal 1 Goal / Goal Update 1. Pt will demo good understanding of diagnosis and prognosis. 2. Pt will perform balance exercises independently and demos good fall prevention techniques. Target Visit 10 PT Problem 2 PT Problem #2 Impaired Balance PT Goal 1 Goal / Goal Update 1. Pt will demo a Tinetti Assessment score of 20/ 28 or more with atleast 1 UE support to reduce risk for falls. 2. Pt will demo a 5x STS score of 15 or less with at most 1 UE support to improve balance and transfers. Target Visit 16 PT Problem 3 PT Problem #3 Impaired Gait PT Goal 1 Goal / Goal Update Pt will demo normalized gait pattern with appropriate AD with improved foot clearance and weight shifting on various surfaces and stairs to reduce risk for falls. Target Visit 16 PT Problem 4 PT Problem #4 Impaired Vestibular System PT Goal 1 Goal / Goal Update Pt will report complete resolution of dizziness and LOB when performing transfers transition and walking/standing with head movement tasks. Target Visit 16 OT Problem 1 OT Problem #1 Knowledge Deficit OT Goal 1 Goal / Goal Update Patient to be independent with instructed materials. Target Visit 8 OT Problem 2 OT Problem #2 Impaired Balance OT Goal 1 Goal / Goal Update 1. To increase functional balance and safety with ADLs, patient to be able to complete functional activities in unsupported sitting x10 minutes without UE support and no posterolateral leaning. Target Visit 8 OT Problem 3 OT Problem #3 Impaired Strength OT Goal 1 Goal / Goal Update 1. Patient to improve functional UB strength for ADLs as demonstrated by improving (R) shoulder strength to 4/5, (R) elbow/wrist strength to 4+/5, and (L) elbow/wrist strength to 4/5. 2. Patient to improve bilateral crutch maker strengths by 5 lbs. or more. Target Visit 8
--- NOTE | 2025-04-07 10:33 | PCPTNOTE ---
Pt called to cancel his appointment today due to illness.
--- NOTE | 2025-04-14 09:52 | PCOTNOTE ---
Patient called & cancelled scheduled appointment this date due to leg pain.
--- NOTE | 2025-04-14 13:00 | PCPTNOTE ---
Patient called & cancelled scheduled appointment this date due to his legs hurting too much to participte in therapy.
--- NOTE | 2025-05-11 13:25 | PCPTNOTE ---
Admitting Provider: Attending Provider: Kaye Reynolds PA-C Patient:aCsey Sheriff Date of :1940 Patient has not returned for any further treatments since 04/09/2025, therefore he will be discharged at this time. Patient?s initial visit was on 03/23/2025 11:00 and he had a total of 2 visits. Clerical reported he has returned to home health services. The goals have not been met.
== END 2025-05-14 08:46 | disposition home or self-care (01) ==
LOC: ANHHIOT 10:45
PROVIDERS: PCP Physician Assistant Medical; Visit Provider Physician Assistant Medical
DX: R26.81 Unsteadiness on feet (principal); R42 Dizziness and giddiness; M19.90 Unspecified osteoarthritis, unspecified site; M47.816 Spondylosis without myelopathy or radiculopathy, lumbar region; R41.82 Altered mental status, unspecified
CPT/HCPCS: 97110; 97165; 97530

== ENCOUNTER 2025-06-18 10:51 | Inpatient (IN) | payer MEDICARE, SELFPAY ==
[2025-06-18] VITALS (10 sets, daily range): BP systolic 102–144; BP diastolic 71–99; PULSE 69–79; RESP 14–22; TEMP 36.4–36.9; O2SAT 93–100; BMI 30.3
--- NOTE | ~2025-06-18 | MR_ITS ---
MRI of the brain Clinical History: Ataxia Technique: Axial and sagittal T1-weighted images were acquired. These were followed by axial T2-weigh emmie, diffusion weighted, gradient, and FLAIR images. Following intravenous administration of 17 cc Mu ltiHance gadolinium, T1-weighted fat-sat imaging was performed in the axial and coronal planes. COMPARISON: 09/14/2022 Findings: There is no acute infarct, internal hemorrhage or mass lesion. There is moderate to severe chronic microvascular ischemic change of the periventricular white matter. Ventricles and subarachnoid spaces are dilated. Orbits are unremarkable. Paranasal sinuses and mastoi d air cells are clear. Major intracranial flow voids are intact. Sagittal midline structures are intact. No abnormal postcontrast enhancement identified. IMPRESSION: No acute abnormality. Moderate to severe chronic microvascular ischemic change and moderate generalized atrophy. Reviewed, dictated and finalized at [facility]. IMPRESSION: No acute abnormality. Moderate to severe chronic microvascular ischemic change and moderate generaliz ed atrophy.
--- NOTE | ~2025-06-18 | CT_ITS ---
EXAMINATION: CTA chest PE abdomen pel DATE: 06/18/2025 13:24 CDT INDICATION: Hypoxia. Bedbound. Weakness. TECHNIQUE: Computed tomographic angiography (CTA) of the chest, abdomen, and pelvis was performed wit hwith IV intravenous contrast. The dose-length product was 2284.13 mGy-cm. Maximum intensity projecti on 3D-reconstructions of the aorta and other arteries were constructed by the technologist on a [employer] workstation. COMPARISON: CT chest 06/05/2017 FINDINGS: CHEST CTA: No thoracic aortic aneurysm. Moderate as described disease in the thoracic aorta. Heart is mildly enlarged. No enlarged mediastinal or hilar lymph nodes. No pulmonary embolism identif ied. Visualized tracheobronchial tree is patent. Moderate sized patchy and reticular opacities scattered throughout both lungs most prominent in the l ower lungs. No pneumothorax. No pleural effusion. ABDOMEN AND PELVIS CTA: Indeterminate 1.8 cm low-density lesion in the right lobe of the liver. A liver mass CT or MRI is rec ommended. Gallbladder and spleen are unremarkable. Adrenal glands are unremarkable. Bilateral renal cysts. Ther e are a few too small to characterize low-attenuation lesions in the kidneys. There is a 2.0 cm right renal cyst and a 3.1 cm left renal cyst. Abdominal aorta is ectatic. Infrarenal abdominal aortic aneurysm measuring 3.5 x 2.5 cm. Moderate linda unt of atherosclerosis disease in the abdominal aorta. Right hip arthroplasty with surrounding artifact which limits evaluation. No enlarged lymph nodes identified in the abdomen or pelvis. Visualized bladder is unremarkable. Prostate gland is mildly enlarged. Appendix is not visualized. Diverticulosis in the descending and sigmoid colon with a small amount of surrounding fat stranding. Mild acute diverticulitis is possible in the appropriate clinical setting. Bones appear osteopenic. Multilevel degenerative change throughout the visualized spine. Subtle bony irregularity of the superior endplate of the T12 vertebral body which may be due to a com pression fracture of indeterminate age. Correlate for point tenderness. Consider an MRI of the thorac ic spine for further assessment. The finding is new as compared to the study from 2017. IMPRESSION: 1. Subtle bony irregularity of the superior endplate of the T12 vertebral body which may be due to a compression fracture of indeterminate age. Correlate for point tenderness. Consider an MRI of the tho racic spine for further assessment. The finding is new as compared to the study from 2017. 2. No pulmonary embolism identified. 3. Moderate sized patchy and reticular opacities scattered throughout both lungs most prominent in th e lower lungs. The findings are new as compared to the chest CT from 06/05/2017. Differential includes but is not limited to edema or pneumonia. Follow-up is recommended. 4.Diverticulosis in the descending and sigmoid colon with a small amount of surrounding fat stranding . Mild acute diverticulitis is possible in the appropriate clinical setting. 5.Indeterminate 1.8 cm low-density lesion in the right lobe of the liver. A liver mass CT or MRI is r ecommended. 6.Abdominal aorta is ectatic. Infrarenal abdominal aortic aneurysm measuring 3.5 x 2.5 cm. Moderate a mount of atherosclerosis disease in the abdominal aorta. Reviewed, dictated and finalized at location [facility]. IMPRESSION: 1. Subtle bony irregularity of the superior endplate of the T12 vertebral body which may be due to a compression fracture of indeterminate age. Correlate for point tenderness. Consider an MRI of the thoracic spine for further assessment. The finding is new as compared to the study from 2017. 2. No pulmonary embolism identified. 3. Moderate sized patchy and reticular opacities scattered throughout both lung s most prominent in the lower lungs. The findings are new as compared to the est CT from 06/05/2017. Differential includes but is not limited to edema or pneu monia. Follow-up is recommended. 4.Diverticulosis in the descending and sigmoid colon with a small amount of biju rounding fat stranding. Mild acute diverticulitis is possible in the appropriat e clinical setting. 5.Indeterminate 1.8 cm low-density lesion in the right lobe of the liver. A sherita er mass CT or MRI is recommended. 6.Abdominal aorta is ectatic. Infrarenal abdominal aortic aneurysm measuring 3. 5 x 2.5 cm. Moderate amount of atherosclerosis disease in the abdominal aorta.
--- NOTE | ~2025-06-18 | XR_ITS ---
EXAMINATION: XR chest 1V portable DATE: 06/18/2025 12:10 INDICATION: Dyspnea. TECHNIQUE: A single frontal AP portable upright image of the chest was obtained. COMPARISON: CT chest 06/05/2017 FINDINGS: Cardiomediastinal silhouette is enlarged, unchanged. Moderate elevation right hemidiaphragm, unchange d .No pneumothorax. No pleural effusion. No free air under the diaphragm. Small opacities in the mid and lower lungs. Differential includes atelectasis/scarring or infiltrates . Left-sided central venous catheter with its tip at the junction between the left brachiocephalic vein and superior vena cava. IMPRESSION: 1. Small opacities in the mid and lower lungs. Differential includes atelectasis/scarring or infiltra mraiam. 2. Left-sided central venous catheter with its tip at the junction between the left brachiocephalic v ein and superior vena cava. Reviewed, dictated and finalized at location [facility]. IMPRESSION: 1. Small opacities in the mid and lower lungs. Differential includes atelectasi s/scarring or infiltrates. 2. Left-sided central venous catheter with its tip at the junction between the left brachiocephalic vein and superior vena cava.
--- NOTE | 2025-06-18 10:59 | ECG_ITS ---
Test Date: 2025-06-18 11:06:40 Measurements Intervals [place] Rate: 78 P: -23 ND: 151 QRS: -24 QRSD: 85 T: 58 QT: 371 QTc: 423 Interpretive Statements SINUS RHYTHM LEFT VENTRICULAR HYPERTROPHY WITH ST-T CHANGE MINIMAL Q WAVES- HIGH LATERAL LEADS BASELINE ARTIFACT- II, III ,AVR, AVF BORDERLINE ECG Compared to ECG 05/09/2024 14:56:43 NO SIGNIFICANT CHANGE Electronically Signed On 06-18-2025 12:28:44 CDT by Alvaro Casanova D.O.
[2025-06-18 11:13] LABS: Hematocrit 43.0 % (42.0-52.0); Hemoglobin 13.8 g/dL (14.0-18.0); Immature Granulocyte Percent A 1.1 % (0-0.5); Lymphocytes Absolute Auto 0.64 K/mm3 (0.9-3.2); Mean Corpuscular HGB Conc 32.1 g/dl (32-36); Mean Corpuscular Hemoglobin 29.2 pg (26-34); Mean Corpuscular Volume 91.1 fl (80-100); Nucleated Red Blood Cells Absolute Auto 0.000 K/mm3 (0.0-0.012); Nucleated Red Blood Cells Perc 0.0 % (0.0-0.2); Platelet Count Result 203 k/mm3 (150-375); Red Blood Count 4.72 M/mm3 (4.6-6.20); White Blood Count 13.3 K/mm3 (4.5-10.0)
[2025-06-18 11:24] LABS: INR 1.1; Prothrombin Time 14.4 Seconds (11.1-14.7)
[2025-06-18 11:25] LABS: Partial Thromboplastin Time 30.3 Seconds (22.3-36.8)
[2025-06-18 11:34] LABS: Alanine Aminotransferase 27 U/L (6-50); Albumin Level 3.8 g/dL (3.5-5.1); Alkaline Phosphatase 68 U/L (38-126); Anion Gap 9 mmol/L (4-12); Aspartate Amino Transferase 29 U/L (17-59); Bilirubin,Total 0.6 mg/dL (0.2-1.3); Blood Urea Nitrogen 25 mg/dL (9-20); Calcium 9.4 mg/dL (8.4-10.2); Carbon Dioxide 23 mmol/L (22-30); Chloride 107 mmol/L (98-107); Estimated CRCL calculation 34 ml/min; Estimated Glomerular Filt Rate 44; Glucose 176 mg/dL (65-110); Potassium 4.1 mmol/L (3.4-5.0); Sodium 139 mmol/L (137-145); Total Protein 7.1 g/dL (6.3-8.2)
[2025-06-18 11:54] LABS: NT Pro B Type Natriuretic Pept 869 pg/mL (19.9-100); Troponin I < 0.012 ng/mL (0.000-0.034)
--- OUTSIDE RECORDS SUMMARY | 2025-06-18 12:05 | XMS_ITS | Clinical Summary ---
Author Organization [facility] Address [address] [place] [address] Care Team Providers Care Laboratory Scientist Name Role Phone Daniel Murray PA-C Primary Care Provider [phone] Olaf Leblanc MD Unavailable [phone] Allergies No known active allergies Medications allopurinol (ZYLOPRIM) 300 MG tabletIndicati ons:gout Take 1 tablet (300 mg total) by mouth daily. Indications: gout With 100 mg for total of 400 mg daily. Active metoprolol succinate ER (TOPROL-XL) 50 MG 24 hr tabletIndicati ons:HTN Take 1 tablet (50 mg total) by mouth daily. Indications: HTN Active pregabalin (LYRICA) 50 MG capsuleIndicat ions:Pain Take 1 capsule (50 mg total) by mouth 2 (two) times daily. Indications: Pain 04/22/20 25 Active amLODIPine (NORVASC) 2.5 MG tabletIndicati ons:Hypertensi on Take 1 tablet (2.5 mg total) by mouth daily. Indications: High Blood Pressure 04/22/20 25 Active predniSONE (DELTASONE) 2.5 mg tabletIndicati ons:Inflammati on Take 1 tablet (2.5 mg total) by mouth daily. Indications: Inflammation as directed 04/22/20 25 Active olmesartan (BENICAR) 40 MG tabletIndicati ons:Hypertensi on Take 1 tablet (40 mg total) by mouth daily. Indications: High Blood Pressure 04/22/20 25 Active allopurinol (ZYLOPRIM) 100 MG tabletIndicati ons:Gout Take 1 tablet (100 mg total) by mouth daily. Indications: Gout With 300 mg for total of 400 mg daily. 04/22/20 25 Active clotrimazole-b etamethasone (LOTRISONE) creamIndicatio ns:Rash and other nonspecific skin eruption Apply 1 each topically 2 (two) times daily. Indications: Rash and other nonspecific skin eruption 04/22/20 25 Active furosemide (LASIX) 20 MG tabletIndicati ons:Edema Take 1 tablet (20 mg total) by mouth daily. Indications: Edema 05/19/20 25 Active traMADol (ULTRAM) 50 MG tabletIndicati ons:Chronic Pain Take 1 tablet (50 mg total) by mouth every 6 (six) hours as needed. Indications: Chronic Pain Rx [id number] in home 10 tablet 06/16/20 25 Active donepezil (ARICEPT) 5 MG TabIndications :Dementia Take 1 tablet (5 mg total) by mouth nightly at bedtime. Indications: Decline in Cognition due to a Brain Disease plan to increase to 10mg after 30 days. 30 tablet 06/16/20 25 Active lidocaine 4 % patchIndicatio ns:Chronic Pain Place 1 patch onto the skin daily. Indications: Chronic Pain Remove & Discard patch within 12 hours or as directed by 30 patch 06/16/20 25 Active HYDROcodone-ac etaminophen (NORCO) 5-325 MG tabletIndicati ons:Acute Pain < 3 Day Supply Take 1 tablet by mouth every 6 (six) hours as needed for Pain. Indications: Acute Pain < 3 Day Supply 10 tablet 03/20/20 24 2024 Discontinued(E rror) indomethacin (INDOCIN) 25 MG capsuleIndicat ions:arthritis Take 1 capsule (25 mg total) by mouth 2 (two) times daily with meals. 20 capsule 03/20/20 24 2024 Discontinued(E rror) traMADol (ULTRAM) 50 MG tabletIndicati ons:Chronic Pain Take 1 tablet (50 mg total) by mouth every 6 (six) hours as needed. Indications: Chronic Pain Rx [id number] in home 05/20/20 25 2024 Discontinued amoxicillin (AMOXIL) 875 MG tablet Take 1 tablet (875 mg total) by mouth 2 (two) times daily. 05/27/20 25 2024 Discontinued(S top Taking at Discharge) Active Problems Problem Noted Date Diagnosed Date Physical deconditioning 06/12/2025 Ataxia 05/30/2025 Metabolic encephalopathy 05/29/2025 Stage 3a chronic kidney disease 03/15/2024 Gout 03/13/2024 Assessment & Plan (03/13/2024 1:27 PM CDT): Recommendation at this time: went over the risks, benefits as well as the alternatives. He's going to continue with his medrol dosepak. Try to do a lower dose of his Arthrotec. It is starting to effect his kidnyes. He's currently on his Prednisone, we'll let him finish that off. If it flares back up, we'll try to get him started on Colchicine. And then we did discuss Krystexxa, it's an IV that we could potentially try to get him set up, but that would probably need to go through an infusion center. He'll give us a call if he wants to try the colchicine. Patient will be seen back as needed. Gout attack 03/13/2024 Fever 02/16/2024 Encounters Date Type Department Care Team Description 06/15/2025 Orders Only [facility] Laboratory [address] [place] [address] Beatriz Hubbard PA-C 06/02/2025 1:13 PM CDT - 06/16/2025 12:20 PM CDT Hospital Encounter [facility] Med/Surg [address] [place] [address] Lazarus Rm MD Daniels, Darcy L, Miriam Ventura, Beatriz Rudd PA-C Discharge Disposition: Custodial Facility 06/02/2025 Telephone [facility] Care Management [address] [place] [address] Candelaria Lizarraga, brim curler (Swing bed referral to [facility] from [facility]./) 06/02/2025 Home Care Visit [facility] [address] [place] [address] Nighat Smith RN SN OASIS TRANSFER W/OUT DC 06/02/2025 Travel 05/29/2025 2:39 PM CDT - 06/02/2025 1:12 PM CDT Hospital Encounter [facility] Med[facility]Surg [address] [facility] [address] Amanda Myers MD Niebruegge, Joshua A, MD Harris, Michael, MD Littlejohn, Briseyda Sorenson, OSCAR Headache; Shortness Of Breath ; Confusion Discharge Disposition: Swing Bed 05/29/2025 Travel 05/26/2025 12:45 PM CDT Telephone [facility] [address] [address] Daniel Murray PA-C Holter Monitor 05/25/2025 9:00 AM CDT Home Care Visit [facility] Care [address] [address] Candace Figueroa, PT PT REASSESSMENT 05/22/2025 Orders Only [facility] [address] [address] Daniel Murray PA-C 05/19/2025 9:00 AM CDT Home Care Visit [facility] [address] [place] [address] [place] [address] Cindy Gregory, STAGE TECHNICIAN STAGE TECHNICIAN HOME VISIT 05/14/2025 10:45 AM CDT Home Care Visit [facility] [address] [place] [address] Janice Luciano, STAGE TECHNICIAN STAGE TECHNICIAN HOME VISIT 05/04/2025 10:30 AM CDT Home Care Visit [facility] Home Care [address] [place] [address] Janice Luciano, STAGE TECHNICIAN STAGE TECHNICIAN HOME VISIT 04/29/2025 12:30 PM CDT Home Care Visit [address] [place] [address] Loretta Cook RN /[facility] ORIENTATION VISIT 04/29/2025 12:00 PM CDT Home Care Visit [address] [address] Janice Luciano, STAGE TECHNICIAN STAGE TECHNICIAN HOME VISIT 04/29/2025 8:45 AM CDT Home Care Visit [address] [address] Christie Greenberg RN SN DISCIPLINE DISCHARGE 04/27/2025 2:00 PM CDT Home Care Visit [address] [address] Candace Figueroa, PT PT INITIAL EVALUATION 04/23/2025 2:00 PM CDT Home Care Visit [address] [address] Delmy Black, OT OT INITIAL EVALUATION 04/22/2025 12:00 PM CDT Home Care Visit [address] [address] Daniel Portillo, RN SN OASIS START OF CARE 04/22/2025 Plan of Care Documentation [address] [id number] 04/21/[address] [address] Scanned, [facility] 04/13/2025 8:12 AM CDT - 04/13/2025 11:59 PM CDT Hospital Encounter [facility] Ultrasound [address] [place] [address] Daniel Murray PA-C Discharge Disposition: Home or Self Care (Routine Discharge) 04/13/2025 Travel 03/24/2025 11:35 AM CDT - 03/24/2025 3:23 PM CDT Emergency [facility] Emergency Room [address] [place] [address] Krupa Evans MD Shortness Of Breath ; Evaluation Of Abnormal Ekg Discharge Disposition: Home or Self Care (Routine Discharge) 03/24/2025 Travel from Last 3 Months Family History Medical History Relation Comments Stroke Father Aortic aneurysm Mother Aortic aneurysm Sister 1 Relation Status Comments Daughter Alive Father Mother Sister 1 Sister 2 Alive Son 1 Alive Son 2 Alive Social History Tobacco Use Types Packs/Day Years Used Date Smoking Tobacco: Never Smokeless Tobacco: Never Tobacco Cessation:Counseling Given: No Alcohol Use Standard Drinks/Week Comments Never 0 (1 standard drink = 0.6 oz pur e alcohol) OASIS D0700: Social Isolation Answer Da te Recorded Frequency of experiencing loneliness or isolatio n Never 04/22/2025 OASIS A1250: Transportation Answer Date Recorded Lack of Transportation (Medical) No 04/22/2025 Lack of Transportation (Non-Medical) No 04/22/2025 Patient Unable or Declines to Respond No 04/22/2025 OASIS B1300: Health Literacy Answer Brendan e Recorded Frequency of needing help to read materials from doctor or pharmacy Never 04/22/2025 [facility] Utilities Answer Date Recorded In the past 12 months has th e [employer], oil, or water [employer] threatened to shut off services in your home? No 05/29/2025 Humiliation, Afraid, Rape, and Kick questionnair e Answer Date Recorded Within the last year, have y ou been afraid of your partner or ex-partner? No 05/29/2025 Within the last year, have y ou been humiliated or emotionally abused in other ways by your partner or ex-partner? No Within the last year, have y ou been kicked, hit, slapped, or otherwise physically hurt by your partner or ex-partner? No 05/29/2025 Within the last year, have y ou been raped or forced to have any kind of sexual activity by your partner or ex-partner? No 05/29/2025 Overall Financial Resource Strain (CARDIA) Answe r Date Recorded How hard is it for you to pa y for the very basics like food, housing, medical care, and heating? Not hard at all 05/29/2025 Hunger Vital Sign Answer Date Recorded Within the past 12 months, y ou worried that your food would run out before you got the money to buy more. Never true 05/29/20 Within the past 12 months, t he food you bought just didn't last and you didn't have money to get more. Never true 05/29/2025 PRAPARE - Transportation Answer Date Re corded In the past 12 months, has l ack of transportation kept you from medical appointments or from getting medications? No 05/06 In the past 12 months, has l ack of transportation kept you from meetings, work, or from getting things needed for daily living? No 05/29/2025 Housing Stability Vital Sign Answer Brendan e Recorded In the last 12 months, was t here a time when you were not able to pay the mortgage or rent on time? No 05/29/2025 In the past 12 months, how m any times have you moved where you were living? 1 05/29/2025 At any time in the past 12 m [facility], were you homeless or living in a penitentiary (including now)? 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 Sex Male 4:20 PM CDT Gender Identity Not on file Sexual Orientation Not on file Last Filed Vital Signs Vital Sign Reading Time Taken Comments Blood Pressure 166/79 06/16/2025 7:03 AM CDT RN notified Pulse 60 06/16/2025 7:03 AM CDT Temperature 35.8 C (96.4 F) 06/16/2025 7:03 AM CDT Respiratory Rate 18 06/16/2025 7:03 AM CDT Oxygen Saturation 96% 06/16/2025 7:0 3 AM CDT Inhaled Oxygen Concentration - - Weight 84.9 kg (187 lb 2.7 oz) 06/16/20 3:50 AM CDT Height 167.6 cm (5' 6) 06/02/2025 4:06 PM CDT Body Mass Index 30.21 06/02/2025 4:06 PM CDT Plan of Treatment Health Maintenance Due Date Last Done Comments DTaP, Tdap and Td Vaccines ( 1 - Tdap) 1959 Annual Medicare Wellness Visit 2006 Zoster Vaccines (2 of 3) 10/01/2015 08/06/2015 COVID-19 Vaccine (4 - 2023-2 5 season) 2024 08/17/2021, 01/20/2021, 12/30/2020 Pneumococcal Vaccine: 50+ Years Completed 05/12/2017, 08/06/2015 RSV Immunization or 60+ Years Completed 07/11/2023 Meningococcal B Vaccine Aged Out No l onger eligible based on patient's age to complete this topic Meningococcal Vaccine Aged Out No chris landry eligible based on patient's age to complete this topic RSV Immunizations Under 20 Months Aged Out No longer eligible b ased on patient's age to complete this topic Goals Goal Patient Goal Type Associated Problems Recent Progress Patient-Stated? 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 Procedure Name Priority Date/Time Associated Diagnosis Comments MOBILE CONTINUOUS TELEMETRY Routine 06/16/2025 2:43 PM CDT Atrial fibrillation, unspecified type ([facility]) IMMUNOFIXATION Routine 06/15/2025 1:36 PM CDT Fever Gout Stage 3a chronic kidney disease ([facility]) BASIC METABOLIC PANEL TIMED 06/15/2025 5:39 AM CDT CBC W/DIFF AUTOMATED TIMED 06/15/2025 5:39 AM CDT BASIC METABOLIC PANEL TIMED 06/12/2025 5:38 AM CDT CBC W/DIFF AUTOMATED TIMED 06/12/2025 5:38 AM CDT PRO-BRAIN NATRIURETIC PEPTIDE Routine 06/11/2025 5:26 AM CDT USE ECHOCARDIOGRAM W CON Today 06/09/2025 11:44 AM CDT BASIC METABOLIC PANEL Routine 06/09/2025 5:34 AM CDT CBC W/DIFF AUTOMATED Routine 06/09/2025 5:34 AM CDT BASIC METABOLIC PANEL Routine 06/06/2025 7:08 AM CDT CBC W/DIFF AUTOMATED Routine 06/06/2025 7:08 AM CDT VITAMIN B6 Routine 06/01/2025 5:43 AM CDT VITAMIN B1 THIAMINE Routine 06/01/2025 5 :[address] LUMB SPINE WO CON Today 05/30/2025 9:[address] CERV SPINE WO CON Today 05/30/2025 9:57 PM CDT VITAMIN B12 / FOLATE STAT 05/30/2025 6:27 AM CDT TSH W/REFLEX FT3 AND FT4 Routine 05/30/2025 6:27 AM CDT COMPREHENSIVE METABOLIC PANEL Routine 05/30/2025 6:27 AM CDT CBC W/DIFF AUTOMATED Routine 05/30/2025 6:27 AM CDT CULTURE, BACTERIA, BLOOD STAT 05/29/2025 7:46 PM CDT CULTURE, BACTERIA, BLOOD STAT 05/29/2025 6:30 PM CDT MRI BRAIN WO CON STAT 05/29/2025 6:22 PM CDT URINALYSIS, AUTO, COMPLETE STAT 05/29/2025 5:30 PM CDT XR CHEST PORTABLE STAT 05/29/2025 3:3 0 PM CDT CORONAVIRUS (COVID 19) STAT 3:25 PM CDT INFLUENZA A & B STAT 05/29/2025 3:25 PM CDT BLOOD GAS, VENOUS STAT 05/29/2025 3:1 0 PM CDT ECG 12-LEAD Routine 05/29/2025 2:54 PM CDT C-REACTIVE PROTEIN STAT 05/29/2025 2: 50 PM CDT SED RATE, ERYTHROCYTE (ESR) STAT 05/29/2025 2:50 PM CDT MAGNESIUM STAT 05/29/2025 2:50 PM CDT CBC W/DIFF AUTOMATED STAT 05/29/2025 2:50 PM CDT COMPREHENSIVE METABOLIC PANEL STAT 05/29/2025 2:50 PM CDT USV RENITA DUPLEX LOW EXT JASMIN Routine 04/13/2025 9:07 AM CDT Other specified abnormal findings of blood chemistry CTA CHEST PE PROTOCOL STAT 03/24/2025 1:54 PM CDT XR CHEST PORTABLE STAT 03/24/2025 11: 59 AM CDT PRO-BRAIN NATRIURETIC PEPTIDE STAT 03/24/2025 11:45 AM CDT MAGNESIUM STAT 03/24/2025 11:45 AM CDT LIPASE STAT 03/24/2025 11:45 AM CDT CK (CPK) STAT 03/24/2025 11:45 AM CDT TROPONIN, QUANT STAT 03/24/2025 11:45 AM CDT COMPREHENSIVE METABOLIC PANEL STAT 03/24/2025 11:45 AM CDT D-DIMER, QUANTITATIVE STAT 03/24/2025 11:45 AM CDT PARTIAL THROMBOPLASTIN TIME,PTT STAT 03/24/2025 11:45 AM CDT PROTHROMBIN TIME, VENOUS STAT 03/24/2025 11:45 AM CDT CBC W/DIFF AUTOMATED STAT 03/24/2025 11:45 AM CDT ECG 12-LEAD STAT 03/24/2025 11:44 AM CDT from Last 3 Months Results * IMMUNOFIXATION (06/15/2025 1:36 PM CDT) [facility] IMMUNOFIXATION SERUM REPORT 06/17/2025 9:43 PM CDT [employer] SHYLA ROBERSON Comment: Normal pattern. No monoclonal proteins detected. Test Performed by Adan Ray, PO-MO [facility], [address] [place] [address] Giacomo Romero M.D., Ph.D., Director of Laboratories , CLIA [id number] 06/15/2025 1:36 PM CDT us Beatriz Hubbard PA-C LABORATORY Final Result [facility] , * (ABNORMAL) BASIC METABOLIC PANEL (06/15/2025 5:39 AM CDT) Only the most recent of4 resultswithin the time period is included. [facility] GLUCOSE 89 70 - 99 MG/DL 06/15/2025 6:28 AM [facility] BUN 23(H) 7 - 18 MG/DL 06/15/2025 6:28 AM [facility] CREATININE S/P/B 1.40(H) 0.7 - 1.3 MG/DL 06/15/2025 6:28 AM [facility] SODIUM S/P/B 141 136 - 145 MMOL/L 06/15/2025 6:28 AM [facility] POTASSIUM S/P/B 4.0 3.5 - 5.1 MMOL/L 06/15/2025 6:28 AM [facility] CHLORIDE S/P/B 107 100 - 108 MMOL/L 06/15/2025 6:28 AM [facility] CO2 22.8 21 - 32 MMOL/L 06/15/2025 6:28 AM [facility] CALCIUM S/P/B 8.8 8.5 - 10.1 MG/DL 06/15/2025 6:28 AM [facility] ANION GAP 11.2 5 - 15 MMOL/L 06/15/2025 6:28 AM [facility] BUN CREATININE RATIO 16.4 6 - 26 06/15/2025 6:28 AM [facility] GFR ESTIMATE 50(L) >90 ML/MIN/1.7 3 M2 06/15/2025 6:28 AM [facility] Comment: NOTE: eGFR is not calculated for patients <18 years of age. This is an estimated GFR calculation using the new CKD EPI creatinine equation without race and so does not require a correction factor for race. This estimated GFR should not be used for calculating drug doses. 06/15/2025 5:39 AM CDT Radha L Ennis GOLF CART ATTENDANT LABORATORY Final Result [facility] [address] [place] [address], * (ABNORMAL) CBC W/DIFF AUTOMATED (06/15/2025 5:39 AM CDT) Only the most recent of7 resultswithin the time period is included. WBC 9.05 4.4 - 11.0 x10'3/uL 06/15/2025 6:18 AM CDT [facility] RBC 4.20(L) 4.50 - 5.90 x10'6/uL 06/15/2025 6:18 AM CDT [facility] HGB 12.6(L) 14.0 - 17.5 G/DL 06/15/2025 6:18 AM CDT [facility] HCT 38.1(L) 41.5 - 50.4 % 06/15/2025 6:18 AM CDT [facility] MCV 90.7 80.0 - 96.0 FL 06/15/2025 6:18 AM CDT [facility] MCH 30.0 26.5 - 31.4 PG 06/15/2025 6:18 AM CDT [facility] MCHC 33.1 31.9 - 34.8 G/DL 06/15/2025 6:18 AM CDT [facility] RDW 15.9(H) 12.3 - 14.3 % 06/15/2025 6:18 AM CDT [facility] PLT 165 151 - 353 x10'3/uL 06/15/2025 6:18 AM CDT [facility] MPV 10.7 9.7 - 11.9 FL 06/15/2025 6:18 AM CDT [facility] RBC MORPHOLOGY NORMAL 06/15/2025 6:18 AM CDT [facility] PLT MORPH. NORMAL 06/15/2025 6:18 AM CDT [facility] WBC MORPHOLOGY NORMAL 06/15/2025 6:18 AM CDT [facility] LYMPHOCYTES % 6.1(L) 15.8 - 45.0 % 06/15/2025 6:18 AM CDT [facility] NEUTROPHILS % 79.3(H) 42.1 - 71.9 % 06/15/2025 6:18 AM CDT [facility] MONOCYTES % 9.9 5.7 - 12.5 % 06/15/2025 6:18 AM CDT [facility] EOSINOPHILS 2.2 0.0 - 5.6 % 06/15/2025 6:18 AM CDT [facility] BASOPHILS 0.4 0.0 - 1.3 % 06/15/2025 6:18 AM CDT [facility] ABS. NEUTROPHILS 7.17(H) 1.40 - 6.00 x10'3/uL 06/15/2025 6:18 AM CDT [facility] IMMATURE GRANS % 2.1(H) 0.0 - 0.5 % 06/15/2025 6:18 AM CDT [facility] ABS. LYMPHOCYTES 0.55(L) 0.80 - 4.70 x10'3/uL 06/15/2025 6:18 AM CDT [facility] 06/15/2025 5:39 AM CDT us Radha Ennis NP LABORATORY Final Result [facility] [address] [place] [address], * (ABNORMAL) PRO-BRAIN NATRIURETIC PEPTIDE (06/11/2025 5:26 AM CDT) Only the most recent of2 resultswithin the time period is included. PRO-B TYPE NATRIURETIC PEPTIDE 482(H) <450 PG/ML 06/11/2025 6:49 AM CDT [facility] Comment: CUT POINTS ESTABLISHED BY [employer] ON NT PROBNP (ICON) STUDY (2006). AGE INDEPENDENT: <300 PG/ML HAS A 99% NEGATIVE PREDICTIVE VALUE FOR EXCLUDING ACUTE CHF <50 YEARS: >450 PG/ML IS CONSISTENT WITH ACUTE CHF 50-75 YEARS: >900 PG/ML IS CONSISTENT WITH ACUTE CHF >75 YEARS: >1800 PG/ML IS CONSISTENT WITH ACUTE CHF IN PATIENTS WITH RENAL INSUFFICIENCY (GFR <60), >1200 PG/ML YIELDS A DIAGNOSTIC SENSITIVITY AND SPECIFICITY OF 89% AND 72% FOR ACUTE CHF. 06/11/2025 5:26 AM CDT Radha Ennis NP LABORATORY Final Result [facility] [address] [place] [address], [place] [phone] * USE ECHOCARDIOGRAM W CON (06/09/2025 11:44 AM CDT) Anatomical Region Laterality Modality NA Ultrasound 06/09/2025 10:4 2 AM CDT Narrative 06/09/2025 3:35 PM CDT SAMANTHA JIN Pat.Name: Casey Junior.ID: [id number] .Date: 06/09/2025 Refer.MD: Arely, [facility] Radiology Exam Time: 10:42:00 AM Study Type:OUTREACH Height: 66 in Weight: 195 lb BSA: 1.98 m2 Age: 4 1940,85Y Sex: M Sonogrphr: Cathi Pat. Stat.:Inpatient Room: 118 1 Reason for Study:Exertional Dyspnea Procedures: 2D, M-mode, Doppler, Color Flow, Myocardial contrast was used to enhance endocardial definition. Study performed at [place], [place] and interpreted by [facility]. ++++++++++++++++++++++++++++++++++++ SUMMARY: ++++++++++++++++++++++++++++++++++++ The left ventricular size is normal. The left ventricular systolic function is normal. Estimated left ventricular ejection fraction is 55-60%. Mild concentric left ventricular hypertrophy. Wall motion appears normal in all segments. Left ventricular diastolic function is abnormal (grade 2 - pseudonormal pattern). The right ventricular size is normal. Left atrial size is normal. Aortic root is mildly dilated. Ascending aorta is mildly dilated. The aortic root measures 4.3 cm. The proximal ascending aorta measures 4.0cm. Unable to reliably quantitate pulmonary systolic pressure. No evidence of aortic valve stenosis. Mild aortic regurgitation. Mild aortic valve sclerosis. There is trace mitral regurgitation. ++++++++++++++++++++++++++++++++++++ FINDINGS: ++++++++++++++++++++++++++++++++++++ LV: The left ventricular size is normal. The left ventricular systolic function is normal. Estimated left ventricular ejection fraction is 55-60%. Mild concentric left ventricular hypertrophy. Left ventricular diastolic function is abnormal (grade 2 - pseudonormal pattern). WM: Wall motion appears normal in all segments. RV: The right ventricular size is normal. Right ventricular systolic function is not assessable. LA: Left atrial size is normal. RA: The right atrial size is normal. JOHN: No evidence of pericardial effusion. AO: Aortic root is mildly dilated. Ascending aorta is mildly dilated. The aortic root measures 4.3 cm. The proximal ascending aorta measures 4.0cm. PA: Unable to reliably quantitate pulmonary systolic pressure. SVn: Inferior vena cava is not assessable. AV: No evidence of aortic valve stenosis. Mild aortic regurgitation. Mild aortic valve sclerosis. The aortic valve not well visualized. MV: The mitral valve is structurally normal. There is trace mitral regurgitation. PV: Pulmonic valve not well visualized. TV: The tricuspid valve appears structurally normal. There is trace tricuspid regurgitation. <Electronic Signature> 06/09/2025 03:35 PM Bennie Durand M.D. Procedure Note Bennie Durand MD - 06/09/2025 SAMANTHA Fitch.Name: Casey Junior Pat.ID: [id number] .Date: 06/09/2025 Refer.MD: Arely, [facility] Radiology Exam Time: 10:42:00 AM Study Type:OUTREACH Height: 66 in Weight: 195 lb BSA: 1.98 m2 Age: 4 1940,85Y Sex: M Sonogrphr: Cathi Fitch. Stat.:Inpatient Room: 118 1 Reason for Study:Exertional Dyspnea Procedures: 2D, M-mode, Doppler, Color Flow, Myocardial contrast was used to enhance endocardial definition. Study performed at [place], [place] and interpreted by [facility]. ++++++++++++++++++++++++++++++++++++ SUMMARY: ++++++++++++++++++++++++++++++++++++ The left ventricular size is normal. The left ventricular systolic function is normal. Estimated left ventricular ejection fraction is 55-60%. Mild concentric left ventricular hypertrophy. Wall motion appears normal in all segments. Left ventricular diastolic function is abnormal (grade 2 - pseudonormal pattern). The right ventricular size is normal. Left atrial size is normal. Aortic root is mildly dilated. Ascending aorta is mildly dilated. The aortic root measures 4.3 cm. The proximal ascending aorta measures 4.0cm. Unable to reliably quantitate pulmonary systolic pressure. No evidence of aortic valve stenosis. Mild aortic regurgitation. Mild aortic valve sclerosis. There is trace mitral regurgitation. ++++++++++++++++++++++++++++++++++++ FINDINGS: ++++++++++++++++++++++++++++++++++++ LV: The left ventricular size is normal. The left ventricular systolic function is normal. Estimated left ventricular ejection fraction is 55-60%. Mild concentric left ventricular hypertrophy. Left ventricular diastolic function is abnormal (grade 2 - pseudonormal pattern). WM: Wall motion appears normal in all segments. RV: The right ventricular size is normal. Right ventricular systolic function is not assessable. LA: Left atrial size is normal. RA: The right atrial size is normal. JOHN: No evidence of pericardial effusion. AO: Aortic root is mildly dilated. Ascending aorta is mildly dilated. The aortic root measures 4.3 cm. The proximal ascending aorta measures 4.0cm. PA: Unable to reliably quantitate pulmonary systolic pressure. SVn: Inferior vena cava is not assessable. AV: No evidence of aortic valve stenosis. Mild aortic regurgitation. Mild aortic valve sclerosis. The aortic valve not well visualized. MV: The mitral valve is structurally normal. There is trace mitral regurgitation. PV: Pulmonic valve not well visualized. TV: The tricuspid valve appears structurally normal. There is trace tricuspid regurgitation. <Electronic Signature> 06/09/2025 03:35 PM Bennie Durand M.D. Lazarus Rm MD ECHO Final Result * VITAMIN B6 (06/01/2025 5:43 AM CDT) [facility] VITAMIN B6 S/P/B 5.6 2.1 - 21.7 ng/mL 06/05/2025 10:31 PM CDT [employer] KRISTANJEANMARIE ROBERSON Comment: Vitamin supplementation within 24 hours prior to blood draw may affect the accuracy of the results. This test was developed and its analytical performance characteristics have been determined by [employer] [place], [place]. It has not been cleared or approved by the U.S. Food and Drug Administration. This assay has been validated pursuant to the CLIA regulations and is used for clinical purposes. Test Performed by [facility], [place], [id number] [place], [place] Giacomo Romero M.D., Ph.D., Director of Laboratories , CLIA [id number] 06/01/2025 5:43 AM CDT us Lazarus Rm MD LABORATORY Final Result Performing Organization Address City/[facility]/ZIP Co de Phone Number [employer] [address] [place], [place] , [place] [phone] * VITAMIN B1 THIAMINE (06/01/2025 5:43 AM CDT) VITAMIN B1 S/P/B 15 8 - 30 nmol/L 06/07/2025 6:32 AM CDT [employer] SHYLA DA Comment: Vitamin supplementation within 24 hours prior to blood draw may affect the accuracy of the results. This test was developed and its analytical performance characteristics have been determined by [facility] [place], [place]. It has not been cleared or approved by the U.S. Food and Drug Administration. This assay has been validated pursuant to the CLIA regulations and is used for clinical purposes. [facility], [place], [address] [place], [place] Giacomo Romero M.D., Ph.D., Director of Laboratories , CLIA [id number] 06/01/2025 5:43 AM CDT us Lazarus Rm MD LABORATORY Final Result Performing Organization Address [facility] Co de Phone Number [employer] [facility] [address] [place], [place] , [place] [phone] * CT LUMB SPINE WO CON (05/30/2025 9:57 PM CDT) Anatomical Region Laterality Modality Spine Computed Tomogra phy 05/31/2025 6:44 AM CDT Impressions 05/31/2025 7:11 AM CDT IMPRESSION: 1. Subacute to chronic fractures of the left L2, L3, and L4 transverse processes with callus formation. 2. Subacute to chronic fracture of the superior endplate of T12 vertebral body slightly more prominent to the right of midline with mild sclerosis in the superior plate of T12 that may be related to both slight impaction and some healing. 3. Very minimal compression deformity of the anterior superior endplate of L1 vertebral body that also appears late subacute to chronic and new since 03/19/2024. No significant loss of height is seen. 4. Concentric disc osteophyte complex eccentric laterally to the right at L3-4 with moderate central canal stenosis and moderate to severe right and spaz-iq-tyvtlprx left foraminal stenosis. Please correlate for right L3 radiculopathy and neurogenic claudication. 5. Concentric disc osteophyte complex eccentric laterally to the right at L4-5 with moderate to severe right foraminal stenosis and moderate central canal stenosis and moderate left foraminal narrowing. There is also mild bilateral subarticular recess narrowing. Please correlate clinically for right greater than left L4 radiculopathy. 6. Concentric disc osteophyte complex with severe left and moderate to severe right foraminal stenosis please correlate for left greater than right L5 radiculopathy. 7. Questionable wall thickening in the limited partially included rectum. Suggest bronchoscopy for further evaluation. 8. Atherosclerotic calcifications in the abdominal aorta and its distal branches without aneurysm. 9. Bilateral renal cysts in the partially included kidneys, for which no follow-up imaging is recommended. Referred By: Interpreted By: Jazlyn Mesa MD, 05/31/2025 6:44 AM Narrative 05/31/2025 7:11 AM CDT [place] [id number] [facility] [place] [address] EXAMINATION: CT Lumbar spine without contrast,, Axial Imaging with 2-D coronal and sagittal reconstructions. This CT exam was performed using one or more of the following dose reduction techniques: automated exposure control, adjustment of the mA and/or kV according to patient size, the use of iterative reconstruction technique, use of ALARA (As Low As Reasonably Achievable) and/or use of Image Gently techniques. INDICATION: Unsteady gait, back and neck pain. COMPARISON: CT abdomen and pelvis with contrast 03/19/2024. FINDINGS: There are subacute to chronic fractures of the left L2, L3, and L4 transverse processes with callus formation, new since 03/19/2024, with no significant soft tissue swelling. There is mild compression deformity in the superior endplate of T12 vertebral body slightly more prominent to the right of midline that is new since 03/19/2024 but otherwise appears late subacute or chronic in nature with no significant paraspinal soft tissue swelling and with mild sclerosis in the superior plate of T12 that may be related to both slight impaction as well as some healing. There is very minimal compression of the anterior superior endplate of L1 vertebral body that also appears late subacute to chronic and new since 03/19/2024. No significant loss of height is seen at L1. There is normal vertebral heights and remaining lumbar spine. Tiny cortical density at the posterior tip of the spinous process of L5 is stable since 03/19/2024 and may be related to an old ununited avulsion fracture or an unfused accessory ossicle or an aortic calcification. No other evidence of fracture or dislocation. No suspicious osseous lesion is seen. Preservation of lumbar lordosis. Slight degenerative retrolisthesis of L1 on L2, L2 on L3, and L4 on L5. Vacuum phenomenon and loss of disc height in all images from T12 to S1. Mild degenerative sclerosis in the opposing endplates at L3-4 and L5-S1. The sacroiliac joints are normal. The paraspinal soft tissues are normal. Incidental 3.4 cm cyst in the medial posterior upper right kidney. 3.2 cm cyst in the posterior medial mid left kidney. Atherosclerotic calcifications in the abdominal aorta and its distal branches without aneurysm. Artifact from nondistention versus mild wall thickening in the partially included proximal rectum. No evidence of bowel obstruction in the limited included lower abdomen/pelvis. Individual discs are as follows: T11-12: Only partially imaged.-12 does demonstrate concentric annular bulge and spondylosis slightly eccentric laterally to the left with bilateral facet arthropathy with limited evaluation for canal or foraminal stenosis due to incomplete imaging. T12-L1: Small concentric annular bulging slightly eccentric disc osteophyte complex laterally to the right with ctky-qz-vrweprwb right foraminal narrowing. No significant central canal or left foraminal narrowing. Minimal facet arthropathy. L1-2: Small concentric disc osteophyte complex eccentric laterally to the right with mild right greater than left facet arthropathy and ligament hypertrophy with moderate right foraminal stenosis and borderline central canal narrowing. L2-3: Concentric disc osteophyte complex with mild ligamentum hypertrophy. Subacute fracture of the left L3 transverse process with mild callus formation, new since 03/19/2024. Late subacute to chronic fracture of distal left L2 transverse process with callus formation. L3-4: Subacute to chronic fracture of left L3 transverse process with incomplete osseous union with callus formation with no soft tissue swelling. Concentric disc osteophyte complex eccentric laterally to the right as well as a small osteophyte posteriorly to the left of midline, with bilateral ligament hypertrophy with moderate central canal stenosis with moderate to severe right and uwzn-wi-pulnvviu left foraminal stenosis. Please correlate for right L3 radiculopathy and neurogenic claudication. L4-5: Concentric disc osteophyte complex eccentric laterally to the right with moderate to severe right foraminal stenosis and moderate central canal stenosis and moderate left foraminal narrowing. Please correlate clinically for right greater than left L4 radiculopathy. There is also mild bilateral subarticular recess narrowing. L5-S1: Consistent with disc osteophyte complex with severe left and moderate to severe right foraminal stenosis without significant central canal stenosis. Please correlate clinically for left greater than right L5 radiculopathy. Procedure Note Jazlyn Mesa MD - 05/31/2025 [facility] [address] [facility] [place] [address] EXAMINATION: CT Lumbar spine without contrast,, Axial Imaging with 2-Dcoronal and sagittal reconstructions. This CT exam was performed using one or more of the following dosereduction techniques: automated exposure control, adjustment of the mAand/or kV according to patient size, the use of iterative reconstructiontechnique, use of ALARA (As Low As Reasonably Achievable) and/or use ofImage Gently techniques. INDICATION: Unsteady gait, back and neck pain. COMPARISON: CT abdomen and pelvis with contrast 03/19/2024. FINDINGS: There are subacute to chronic fractures of the left L2, L3, andL4 transverse processes with callus formation, new since 03/19/2024, withno significant soft tissue swelling. There is mild compression deformityin the superior endplate of T12 vertebral body slightly more prominent tothe right of midline that is new since 03/19/2024 but otherwise appearslate subacute or chronic in nature with no significant paraspinal softtissue swelling and with mild sclerosis in the superior plate of T12 thatmay be related to both slight impaction as well as some healing. There isvery minimal compression of the anterior superior endplate of L1 vertebralbody that also appears late subacute to chronic and new since 03/19/2024.No significant loss of height is seen at L1. There is normal vertebralheights and remaining lumbar spine. Tiny cortical density at theposterior tip of the spinous process of L5 is stable since 03/19/2024 andmay be related to an old ununited avulsion fracture or an unfusedaccessory ossicle or an aortic calcification. No other evidence offracture or dislocation. No suspicious osseous lesion is seen.Preservation of lumbar lordosis. Slight degenerative retrolisthesis of L1on L2, L2 on L3, and L4 on L5. Vacuum phenomenon and loss of disc heightin all images from T12 to S1. Mild degenerative sclerosis in the opposingendplates at L3-4 and L5-S1. The sacroiliac joints are normal. Theparaspinal soft tissues are normal. Incidental 3.4 cm cyst in the medialposterior upper right kidney. 3.2 cm cyst in the posterior medial midleft kidney. Atherosclerotic calcifications in the abdominal aorta andits distal branches without aneurysm. Artifact from nondistention versusmild wall thickening in the partially included proximal rectum. Noevidence of bowel obstruction in the limited included lowerabdomen/pelvis. Individual discs are as follows: T11-12: Only partially imaged.-12 does demonstrate concentric annularbulge and spondylosis slightly eccentric laterally to the left withbilateral facet arthropathy with limited evaluation for canal or foraminalstenosis due to incomplete imaging. T12-L1: Small concentric annular bulging slightly eccentric discosteophyte complex laterally to the right with scmh-lm-cxtcbmgj rightforaminal narrowing. No significant central canal or left foraminalnarrowing. Minimal facet arthropathy. L1-2: Small concentric disc osteophyte complex eccentric laterally to theright with mild right greater than left facet arthropathy and ligamenthypertrophy with moderate right foraminal stenosis and borderline centralcanal narrowing. L2-3: Concentric disc osteophyte complex with mild ligamentum hypertrophy.Subacute fracture of the left L3 transverse process with mild callusformation, new since 03/19/2024. Late subacute to chronic fracture ofdistal left L2 transverse process with callus formation. L3-4: Subacute to chronic fracture of left L3 transverse process withincomplete osseous union with callus formation with no soft tissueswelling. Concentric disc osteophyte complex eccentric laterally to theright as well as a small osteophyte posteriorly to the left of midline,with bilateral ligament hypertrophy with moderate central canal stenosiswith moderate to severe right and uwiz-kl-tnayfvsk left foraminalstenosis. Please correlate for right L3 radiculopathy and neurogenicclaudication. L4-5: Concentric disc osteophyte complex eccentric laterally to the rightwith moderate to severe right foraminal stenosis and moderate centralcanal stenosis and moderate left foraminal narrowing. Please correlateclinically for right greater than left L4 radiculopathy. There is alsomild bilateral subarticular recess narrowing. L5-S1: Consistent with disc osteophyte complex with severe left andmoderate to severe right foraminal stenosis without significant centralcanal stenosis. Please correlate clinically for left greater than rightL5 radiculopathy. IMPRESSION: 1. Subacute to chronic fractures of the left L2, L3, and L4 transverseprocesses with callus formation. 2. Subacute to chronic fracture of the superior endplate of T12 vertebralbody slightly more prominent to the right of midline with mild sclerosisin the superior plate of T12 that may be related to both slight impactionand some healing. 3. Very minimal compression deformity of the anterior superior endplateof L1 vertebral body that also appears late subacute to chronic and newsince 03/19/2024. No significant loss of height is seen. 4. Concentric disc osteophyte complex eccentric laterally to the right atL3-4 with moderate central canal stenosis and moderate to severe right omndxio-pz-tmivdzvo left foraminal stenosis. Please correlate for right [id number] and neurogenic claudication. 5. Concentric disc osteophyte complex eccentric laterally to the right atL4-5 with moderate to severe right foraminal stenosis and moderate centralcanal stenosis and moderate left foraminal narrowing. There is also mildbilateral subarticular recess narrowing. Please correlate clinically forright greater than left L4 radiculopathy. 6. Concentric disc osteophyte complex with severe left and moderate tosevere right foraminal stenosis please correlate for left greater thanright L5 radiculopathy. 7. Questionable wall thickening in the limited partially included rectum.Suggest bronchoscopy for further evaluation. 8. Atherosclerotic calcifications in the abdominal aorta and its distalbranches without aneurysm. 9. Bilateral renal cysts in the partially included kidneys, for which nofollow- up imaging is recommended. Referred By: Interpreted By: Jazlyn Mesa MD, 05/31/2025 6:44 AM Lazarus Rm MD CT Final Result * CT CERV SPINE WO CON (05/30/2025 9:57 PM CDT) Anatomical Region Laterality Modality Spine Computed Tomogra phy 05/31/2025 7:11 AM CDT Impressions 05/31/2025 7:26 AM CDT IMPRESSION: 1. No acute fracture or dislocation. 2. Chronic compression deformity of anterior T1 vertebral body with mild to moderate loss of height anteriorly. 3. Mild chronic loss of height of C5 and C6 vertebral bodies, related to remote trauma and/or arthritic in nature. 4. 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 5. Chronic degenerative changes at all levels of the cervical and upper thoracic spine with multilevel foraminal stenosis, greatest on the right at C3-4 and C4-5 and C5-6 and C7-T1. 6. Atherosclerotic calcifications in the cervical carotid arteries, proximal great vessels and aortic arch. 7. A 1.3 cm hypodense nodule in the right lobe of thyroid gland: No follow-up imaging is recommended given patient's age of 85. Referred By: Interpreted By: Jazlyn Mesa MD, 05/31/2025 7:11 AM Narrative 05/31/2025 7:26 AM CDT [facility] [address] [place] [address] EXAMINATION: CT Cervical Spine Without Contrast, axial imaging, with 2-D sagittal and coronal reconstruction. This CT exam was performed using one or more of the following dose reduction techniques: automated exposure control, adjustment of the mA and/or kV according to patient size, the use of iterative reconstruction technique, use of ALARA (As Low As Reasonably Achievable) and/or use of Image Gently techniques. INDICATION: Gait instability. Unsteady gait, back and neck pain. COMPARISON: None. FINDINGS: No acute fracture or dislocation. 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 Mild chronic loss of height of C5 and C6 vertebral bodies, related to remote trauma and/or arthritic in nature. Chronic compression deformity of anterior T1 vertebral body with mild to moderate loss of height anteriorly. Height of remaining cervical vertebral bodies is maintained. Chronic degenerative loss of disc height and endplate spondylosis at all levels of the cervical and upper thoracic spine to T3 level degenerative changes of the atlantodental joint. Liver calcifications are seen at C1-2. There is degenerative anterior listhesis C2 on C3, C3 on C4, C4 on C5 and C7 on T1. There may be slight degenerative retrolisthesis of C6 on C7. Calcification of ligamentum nuchae posterior to this several cervical spinous processes from C5 to C7 levels. Prevertebral soft tissues are unremarkable. Atherosclerotic calcifications in bilateral cervical carotid arteries and in the proximal great vessels and aortic arch. Incidental 0.7 x 1.3 cm hypodense lesion in the right lobe of thyroid, for which no follow-up imaging is recommended given patient's age of 85. There is limited evaluation for canal or foraminal stenosis as the axial images were not obtained parallel to the disc spaces. Allowing for limitations, there is concern for severe right and pijj-ts-dxfkniww left foraminal stenosis at C3-4, severe right and moderate left foraminal stenosis C4-5 and C5-6 and moderate to severe right foraminal stenosis C7-T1. C2-3: Posterior disc osteophyte complex with moderate to advanced bilateral facet arthropathy with xrdl-xk-qxnovhky bilateral foraminal narrowing without significant central canal stenosis. Procedure Note Jazlyn Mesa MD - 05/31/2025 [facility] [address] [place] [address] EXAMINATION: CT Cervical Spine Without Contrast, axial imaging, with 2-Dsagittal and coronal reconstruction. This CT exam was performed using one or more of the following dosereduction techniques: automated exposure control, adjustment of the mAand/or kV according to patient size, the use of iterative reconstructiontechnique, use of ALARA (As Low As Reasonably Achievable) and/or use ofImage Gently techniques. INDICATION: Gait instability. Unsteady gait, back and neck pain. COMPARISON: None. FINDINGS: No acute fracture or dislocation. Rotatory curvature ofcervical spine to the left with reversal of cervical lordosis, positional,arthritic, muscle strain and/or scoliosis. Mild chronic loss of height ofC5 and C6 vertebral bodies, related to remote trauma and/or arthritic innature. Chronic compression deformity of anterior T1 vertebral body withmild to moderate loss of height anteriorly. Height of remaining cervicalvertebral bodies is maintained. Chronic degenerative loss of disc heightand endplate spondylosis at all levels of the cervical and upper thoracicspine to T3 level degenerative changes of the atlantodental joint. Livercalcifications are seen at C1-2. There is degenerative anterior listhesisC2 on C3, C3 on C4, C4 on C5 and C7 on T1. There may be slightdegenerative retrolisthesis of C6 on C7. Calcification of ligamentumnuchae posterior to this several cervical spinous processes from C5 to [id number]. Prevertebral soft tissues are unremarkable. Atheroscleroticcalcifications in bilateral cervical carotid arteries and in the proximalgreat vessels and aortic arch. Incidental 0.7 x 1.3 cm hypodense lesionin the right lobe of thyroid, for which no follow-up imaging isrecommended given patient's age of 85. There is limited evaluation forcanal or foraminal stenosis as the axial images were not obtained parallelto the disc spaces. Allowing for limitations, there is concern for severeright and ljdc-dv-qtyqkmnq left foraminal stenosis at C3-4, severe rightand moderate left foraminal stenosis C4-5 and C5-6 and moderate to severeright foraminal stenosis C7-T1. C2-3: Posterior disc osteophyte complexwith moderate to advanced bilateral facet arthropathy rvejrwxs-gz-phsmqefm bilateral foraminal narrowing without significant centralcanal stenosis. IMPRESSION: 1. No acute fracture or dislocation. 2. Chronic compression deformity of anterior T1 vertebral body with mildto moderate loss of height anteriorly. 3. Mild chronic loss of height of C5 and C6 vertebral bodies, related toremote trauma and/or arthritic in nature. 4. Rotatory curvature of cervical spine to the left with reversal ofcervical lordosis, positional, arthritic, muscle strain and/orscoliosis. 5. Chronic degenerative changes at all levels of the cervical and upperthoracic spine with multilevel foraminal stenosis, greatest on the rightat C3-4 and C4-5 and C5-6 and C7-T1. 6. Atherosclerotic calcifications in the cervical carotid arteries,proximal great vessels and aortic arch. 7. A 1.3 cm hypodense nodule in the right lobe of thyroid gland: Nofollow-up imaging is recommended given patient's age of 85. Referred By: Interpreted By: Jazlyn Mesa MD, 05/31/2025 7:11 AM us Lazarus Rm MD CT Final Result * TSH W/REFLEX FT3 AND FT4 (05/30/2025 6:27 AM CDT) [facility] TSH CASCADE 2.683 0.358 - 3.74 uIU/mL 05/30/2025 2:33 PM CDT [facility] Comment: HIGH DOSES OF BIOTIN MAY INTERFERE WITH THIS TEST RESULT. CORRELATION TO CLINICAL HISTORY AND PRESENTATION RECOMMENDED. TSH WITHIN NORMAL RANGE FREE T3 NOT INDICATED FREE T4 NOT INDICATED 05/30/2025 6:27 AM CDT us Lazarus Rm MD LABORATORY Final Result [facility] [address] [place] [address], [place] [phone] * VITAMIN B12 / FOLATE (05/30/2025 6:27 AM CDT) [facility] VITAMIN B12 S/P/B 418 193 - 986 PG/ML 05/30/2025 2:44 PM CDT [facility] FOLATE 12.1 8.6 - 58.9 NG/ML 05/30/2025 2:44 PM CDT [facility] 05/30/2025 6:27 AM CDT us Lazarus Rm MD LABORATORY Final Result [facility] [address] [place] [address], [place] [phone] * (ABNORMAL) COMPREHENSIVE METABOLIC PANEL (05/30/2025 6:27 AM CDT) Only the most recent of3 resultswithin the time period is included. GLUCOSE 89 70 - 99 MG/DL 05/30/2025 7:14 AM T [facility] BUN 31(H) 7 - 18 MG/DL 05/30/2025 7:14 AM T [facility] CREATININE S/P/B 1.43(H) 0.7 - 1.3 MG/DL 05/30/2025 7:14 AM T [facility] SODIUM S/P/B 140 136 - 145 MMOL/L 05/30/2025 7:14 AM T [facility] POTASSIUM S/P/B 3.6 3.5 - 5.1 MMOL/L 05/30/2025 7:14 AM T [facility] CHLORIDE S/P/B 105 100 - 108 MMOL/L 05/30/2025 7:14 AM T [facility] CO2 27.0 21 - 32 MMOL/L 05/30/2025 7:14 AM T [facility] CALCIUM S/P/B 8.7 8.5 - 10.1 MG/DL 05/30/2025 7:14 AM T [facility] BILIRUBIN TOTAL S/P/B 0.5 0.2 - 1.2 MG/DL 05/30/2025 7:14 AM T [facility] TOTAL PROTEIN S/P/B 6.6 6.4 - 8.2 G/DL 05/30/2025 7:14 AM T [facility] ALBUMIN S/P/B 2.9(L) 3.4 - 5.0 G/DL 05/30/2025 7:14 AM T [facility] AST 19 15 - 37 U/L 05/30/2025 7:14 AM T [facility] ALT 27 16 - 60 U/L 05/30/2025 7:14 AM T [facility] ALKALINE PHOSPHATASE S/P/B 85 50 - 136 U/L 05/30/2025 7:14 AM [facility] ANION GAP 8.0 5 - 15 MMOL/L 05/30/2025 7:14 AM [facility] BUN CREATININE RATIO 21.7 05/30/2025 7:14 AM [facility] A/G RATIO 0.8(L) 1.0 - 2.0 RATIO 05/30/2025 7:14 AM [facility] GFR ESTIMATE 48(L) >90 ML/MIN/1.7 3 M2 05/30/2025 7:14 AM [facility] Comment: NOTE: eGFR is not calculated for patients <18 years of age. This is an estimated GFR calculation using the new CKD EPI creatinine equation without race and so does not require a correction factor for race. This estimated GFR should not be used for calculating drug doses. 05/30/2025 6:27 AM CDT us Rasheed Noguera MD LABORATORY Final Res ult [facility] [address] [place] [address], [place] [phone] * CULTURE, BACTERIA, BLOOD (05/29/2025 7:46 PM CDT) Only the most recent of2 resultswithin the time period is included. SPEC DESCRIPTION BLOOD 05/29/2025 3:12 PM CDT [facility] SPECIAL REQUESTS NO SPECIAL REQUEST 05/29/2025 3:12 PM CDT [facility] CULTURE RESULT NO GROWTH 5 DAYS 06/04/2025 10:24 AM CDT [facility] BLOOD SPECIMEN OBTAINED FOR BLOOD CULTURE / Unknown 05/29/2025 7:46 PM CDT 05/29/2025 7:54 PM CDT us Amanda Myers MD MICROBIOLOGY - GENERAL ORDERAB LES Final Result Performing Organization Address City/State/[facility] Co de Phone Number [facility] [address] [place] [address], [place] [phone] [facility] [address] [place] [address], [place] [phone] * MRI BRAIN WO CON (05/29/2025 6:22 PM CDT) Anatomical Region Laterality Modality Head Magnetic Resonan ce 05/29/2025 6:24 PM CDT Impressions 05/29/2025 6:27 PM CDT IMPRESSION: 1. No evidence of acute infarct or intracranial mass lesion. 2. Chronic senescent changes. Referred By: Interpreted By: Antonio Ortez MD, 05/29/2025 6:24 PM Narrative 05/29/2025 6:27 PM CDT [facility] [address] [facility] [place] [address] INDICATION: Altered mental status EXAMINATION: MRI of the brain without contrast. TECHNIQUE: Multisequence multiplanar unenhanced imaging. DATE/TIME: 05/29/2025 5:51 PM COMPARISON: None. FINDINGS: There is no evidence of restricted diffusion or acute infarct. There is no evidence of intracranial mass lesion, mass effect, or midline shift. There are multiple bilateral foci of periventricular and deep white matter T2 and FLAIR hyperintensity, likely due to chronic small vessel ischemic disease. There is moderate to severe volume loss with enlargement of the ventricles and hemispheric sulci. The proximal portions of the major intracranial arterial flow voids are grossly patent. No abnormal extra-axial collections identified. The craniocervical junction, sellar content, and pineal region appear unremarkable. Mastoid air cells, paranasal sinuses, and images of the orbits are unremarkable. Procedure Note Antonio Ortez MD - 05/29/2025 [facility] [address] [place] [id number] INDICATION: Altered mental status EXAMINATION: MRI of the brain without contrast. TECHNIQUE: Multisequence multiplanar unenhanced imaging. DATE/TIME: 05/29/2025 5:51 PM COMPARISON: None. FINDINGS: There is no evidence of restricted diffusion or acute infarct. There is noevidence of intracranial mass lesion, mass effect, or midline shift. Thereare multiple bilateral foci of periventricular and deep white matter T2and FLAIR hyperintensity, likely due to chronic small vessel ischemicdisease. There is moderate to severe volume loss with enlargement of theventricles and hemispheric sulci. The proximal portions of the majorintracranial arterial flow voids are grossly patent. No abnormalextra-axial collections identified. The craniocervical junction, sellarcontent, and pineal region appear unremarkable. Mastoid air cells,paranasal sinuses, and images of the orbits are unremarkable. IMPRESSION: 1. No evidence of acute infarct or intracranial mass lesion. 2. Chronic senescent changes. Referred By: Interpreted By: Antonio Ortez MD, 05/29/2025 6:24 PM us Amanda Myers MD MRI Final Result * URINALYSIS, AUTO, COMPLETE (05/29/2025 5:30 PM CDT) COLOR (U) YELLOW 05/29/2025 5:52 PM CDT [facility] TRANSPARENCY CLEAR 05/29/2025 5:52 PM CDT [facility] SPECIFIC GRAVITY (U) 1.020 1.000 - 1.030 05/29/2025 5:52 PM CDT [facility] U PH 6.0 5.0 - 9.0 05/29/2025 5:52 PM CDT [facility] LEUKOCYTES (U) NEGATIVE NEGATIVE 05/29/2025 5:52 PM CDT [facility] NITRITES NEGATIVE NEGATIVE 05/29/2025 5:52 PM CDT [facility] PROTEIN RANDOM (U) NEGATIVE NEGATIVE 05/29/2025 5:52 PM CDT [facility] GLUCOSE (U) NEGATIVE NEGATIVE 05/29/2025 5:52 PM CDT [facility] KETONES MG/DL (U) NEGATIVE NEGATIVE 05/29/2025 5:52 PM CDT [facility] BILIRUBIN (U) NEGATIVE NEGATIVE 05/29/2025 5:52 PM CDT [facility] BLOOD (U) NEGATIVE NEGATIVE 05/29/2025 5:52 PM CDT [facility] WBC/HPF NONE SEEN 0 - 5 /HPF 05/29/2025 5:52 PM CDT [facility] RBC/HPF NONE SEEN 0 - 5 /HPF 05/29/2025 5:52 PM CDT [facility] EPI/HPF RARE /HPF 05/29/2025 5:52 PM CDT [facility] URINE SPECIMEN OBTAINED BY CLEAN CATCH PROCEDURE / Unknown 05/29/2025 5:30 PM CDT us Amanda Myers MD URINE ORDERABLES Final Result [facility] [address] [place] [address], * XR CHEST PORTABLE (05/29/2025 3:30 PM CDT) Only the most recent of2 resultswithin the time period is included. Anatomical Region Laterality Modality Chest Radiographic Lanie ging 05/29/2025 3:29 PM CDT Impressions 05/29/2025 3:30 PM CDT IMPRESSION: Low lung volume is present on the right. No definite acute cardiopulmonary abnormality. Ordered By: AMANDA MYERS Interpreted By: Geoffrey Conn MD, 05/29/2025 3:29 PM Narrative 05/29/2025 3:30 PM CDT [facility] [address] [facility] [place] [address] Procedure(s): XR CHEST PORTABLE Date of service: 05/29/2025 3:18 PM Provided clinical information: 85 years, Male, sob Procedure and materials: AP portable Comparison studies: March 24, 2025 Findings: Low lung volumes are present. Right hemidiaphragm elevation is present. This is similar to prior study. There is a retrocardiac density present. This is due to tortuosity of the aorta and left atrial enlargement. The visualized left lung is clear. Central venous catheter tip is present superior vena cava. Procedure Note Geoffrey Conn MD - 05/29/2025 [facility] [address] [facility]. [place] [id number] Procedure(s): XR CHEST PORTABLE Date of service: 05/29/2025 3:18 PM Provided clinical information: 85 years, Male, sob Procedure and materials: AP portable Comparison studies: March 24, 2025 Findings: Low lung volumes are present. Right hemidiaphragm elevation is present.This is similar to prior study. There is a retrocardiac density present.This is due to tortuosity of the aorta and left atrial enlargement. The visualized left lung is clear. Central venous catheter tip is present superior vena cava. IMPRESSION: Low lung volume is present on the right. No definite acute cardiopulmonary abnormality. Ordered By: AMANDA MYERS Interpreted By: Geoffrey Conn MD, 05/29/2025 3:29 PM Amanda Myers MD GENERAL IMAGING Final Result * CORONAVIRUS (COVID-19) MOLECULAR (05/29/2025 3:25 PM CDT) CORONAVIRUS SARS COV 2 RNA NEGATIVE NEGATIVE 05/29/2025 3:42 PM CDT [facility] Comment: NEGATIVE RESULTS DO NOT RULE OUT COVID 19 AND SHOULD NOT BE USED THE SOLE BASIS FOR TREATMENT OR PATIENT MANAGEMENT DECISIONS, INCLUDING INFECTION CONTROL DECISIONS. NEGATIVE RESULTS SHOULD BE CONSIDERED IN THE CONTEXT OF A PATIENT'S RECENT EXPOSURES, HISTORY AND THE PRESENCE OF CLINICAL SIGNS AND SYMPTOMS CONSISTENT WITH COVID 19. THE ID NOW COVID-19 2.0 TEST HAS BEEN AUTHORIZED BY THE FDA UNDER EAU FOR USE BY AUTHORIZED LABORATORIES. PERFORMED BY NUCLEIC ACID AMPLIFICATION FOR MOLECULAR QUALITATIVE DETECTION OF SARS-COV-2. SPECIMEN TYPE NASAL 05/29/2025 3:26 PM CDT [facility] NASOPHARYNGEAL SWAB / Unknown 05/29/2025 3:25 PM CDT Amanda Myers MD MICROBIOLOGY - GENERAL ORDERAB LES Final Result [facility] [address] [place] [address], [place] [phone] * INFLUENZA A & B (05/29/2025 3:25 PM CDT) SPECIMEN TYPE NASOPHARYNX 05/29/2025 3:48 PM CDT [facility] INFLUENZA A NEGATIVE NEGATIVE 05/29/2025 3:48 PM CDT [facility] INFLUENZA B NEGATIVE NEGATIVE 05/29/2025 3:48 PM CDT [facility] NASAL NASOPHARYNGEAL SWAB / Unknown 05/29/2025 3:25 PM CDT Amanda Myers MD MICROBIOLOGY - GENERAL ORDERAB LES Final Result [facility] [address] [place] [address], * (ABNORMAL) Blood gas, venous (05/29/2025 3:10 PM CDT) PH VENOUS 7.44(H) 7.32 - 7.43 05/29/2025 3:18 PM CDT [facility] PCO2 VENOUS 37.0 MMHG 05/29/2025 3:18 PM CDT [facility] Comment:NO REFERENCE RANGE H BEEN ESTABLISHED PO2 VENOUS 70.0 MM HG 05/29/2025 3:18 PM CDT [facility] Comment:NO REFERENCE RANGE H BEEN ESTABLISHED TOTAL CO2 VENOUS 26.2(H) 22.0 - 26.0 MMOL/L 05/29/2025 3:18 PM T [facility] BASE EXCESS VENOUS 1.1 MMOL/L 05/29/2025 3:18 PM CDT [facility] Comment:NO REFERENCE RANGE H BEEN ESTABLISHED O2 SAT VENOUS 94 % 05/29/2025 3:18 PM CDT [facility] Comment:NO REFERENCE RANGE H BEEN ESTABLISHED BICARB VENOUS 25.1 22.0 - 29.0 MMOL/L 05/29/2025 3:18 PM T [facility] O2 ADMIN VENOUS ROOM AIR 3:18 PM CDT [facility] 05/29/2025 3:10 PM CDT us Amanda Myers MD LABORATORY Final Result [facility] [address] [place] [address], * ECG 12 lead (05/29/2025 2:54 PM CDT) Only the most recent of2 resultswithin the time period is included. 05/29/2025 2:54 PM CDT Narrative [facility] RAD - 05/29/2025 6:52 PM CDT [facility] Test Date: 2025-05-29 Pat Name: CASEY JUNIOR Department: 85 Room: EXAM 303 Gender: Male Rn Lpn Cna: : 1940 Requested By: AMANDA MYERS Order Number: [id number] Reading MD: Jim Becker Measurements Intervals [place] Rate: 62 P: 23 TN: 182 QRS: -26 QRSD: 84 T: 12 QT: 407 QTc: 416 Interpretive Statements SINUS RHYTHM BORDERLINE LEFT AXIS DEVIATION [QRS AXIS < -20] MODERATE VOLTAGE CRITERIA FOR LVH, CONSIDER NORMAL VARIANT [MEETS CRITERIA IN ONE OF: R(aVL), S(V1), R(V5), R(V5/V6)+S(V1)] NONSPECIFIC T-WAVE ABNORMALITY Compared to ECG 03/24/2025 11:44:01 T-wave abnormality now present Sinus bradycardia no longer present Procedure Note Jim Becker MD - 05/29/2025 [facility] Test Date: 2025-05-29 Pat Name: CASEY JUNIOR Department: 85 Room: EXAM 303 Gender: Male Rn Lpn Cna: : 1940 Requested By: AMANDA MYERS Order Number: [id number] Reading : Jim Becker Measurements Intervals [place] Rate: 62 P: 23 TN: 182 QRS: -26 QRSD: 84 T: 12 QT: 407 QTc: 416 Interpretive Statements SINUS RHYTHM BORDERLINE LEFT AXIS DEVIATION [QRS AXIS < -20] MODERATE VOLTAGE CRITERIA FOR LVH, CONSIDER NORMAL VARIANT [MEETSCRITERIA IN ONE OF: R(aVL), S(V1), R(V5), R(V5/V6)+S(V1)] NONSPECIFIC T-WAVE ABNORMALITY Compared to ECG 03/24/2025 11:44:01 T-wave abnormality now present Sinus bradycardia no longer present us Amanda Myers MD ECG ORDERABLES Final Result [facility] * (ABNORMAL) SED RATE, ERYTHROCYTE (ESR) (05/29/2025 2:50 PM CDT) Pathologist [facility] ESR 33(H) 0 - 20 MM/HR 05/29/2025 3:30 PM CDT [facility] 05/29/2025 2:50 PM CDT us Amanda Myers MD LABORATORY Final Result Performing Organization Address City/[facility]/ZIP Co de Phone Number [facility] [address] [place] [address], [place] [phone] * (ABNORMAL) C-REACTIVE PROTEIN (05/29/2025 2:50 PM CDT) Pathologist [facility] C-REACTIVE PROTEIN 2.18(H) <0.29 mg/dL 05/29/2025 8:10 PM CDT [facility] 05/29/2025 2:50 PM CDT us Amanda Myers MD LABORATORY Final Result [facility] [address] [place] [address], [place] [phone] * MAGNESIUM (05/29/2025 2:50 PM CDT) Only the most recent of2 resultswithin the time period is included. MAGNESIUM 2.0 1.8 - 2.4 MG/DL 05/29/2025 3:30 PM CDT [facility] 05/29/2025 2:50 PM CDT us Amanda Myers MD LABORATORY Final Result [facility] [address] [place] [address], [place] [phone] * USV RENITA DUPLEX LOW EXT JASMIN (04/13/2025 9:07 AM CDT) Anatomical Region Laterality Modality Extremity Ultrasound 04/14/2025 8:58 AM CDT Impressions 04/14/2025 8:59 AM CDT IMPRESSION: No evidence of DVT within the right and left lower extremities. Ordered By: DANIEL MURRAY Interpreted By: Homero Easley, 04/14/2025 8:58 AM Narrative 04/14/2025 8:59 AM CDT [address] [address] IMAGING STUDIES: USV RENITA DUPLEX LOW EXT JASMIN EXAM DATE/TIME: 04/13/2025 8:20 AM CLINICAL HISTORY: OTHER SPECIFIED ABN FINDINGS OF BLOOD CHEMISTRY . Bilateral lower extremity weakness for 2 months. FINDINGS: THERE IS NO EVIDENCE OF DVT WITHIN THE RIGHT AND LEFT COMMON FEMORAL VEINS OR BILATERAL PROXIMAL SAPHENOUS VEINS. THERE IS NO EVIDENCE OF DVT WITHIN THE ENTIRE COURSE OF THE RIGHT AND LEFT FEMORAL VEINS. NO EVIDENCE OF DVT WITHIN THE RIGHT AND LEFT POPLITEAL VEINS OR POSTERIOR TIBIAL VEINS. . COLOR FLOW DOPPLER WITH SPECTRAL AND WAVEFORM ANALYSIS Procedure Note Phan Easley MD - 04/14/[address] [place] [address] IMAGING STUDIES: USV RENITA DUPLEX LOW EXT JASMIN EXAM DATE/TIME: 04/13/2025 8:20 AM CLINICAL HISTORY: OTHER SPECIFIED ABN FINDINGS OF BLOOD CHEMISTRY .Bilateral lower extremity weakness for 2 months. FINDINGS: THERE IS NO EVIDENCE OF DVT WITHIN THE RIGHT AND LEFT COMMON FEMORAL VEINSOR BILATERAL PROXIMAL SAPHENOUS VEINS. THERE IS NO EVIDENCE OF DVT WITHIN THE ENTIRE COURSE OF THE RIGHT AND LEFTFEMORAL VEINS. NO EVIDENCE OF DVT WITHIN THE RIGHT AND LEFT POPLITEAL VEINS OR POSTERIORTIBIAL VEINS. . COLOR FLOW DOPPLER WITH SPECTRAL AND WAVEFORM ANALYSIS IMPRESSION: No evidence of DVT within the right and left lower extremities. Ordered By: DANIEL MURRAY Interpreted By: Homero Easley, 04/14/2025 8:58 AM us Daniel Murray PA-C US VASC Final Resu lt * CTA CHEST PE PROTOCOL (03/24/2025 1:54 PM CDT) Anatomical Region Laterality Modality Chest Computed Tomogra phy 03/24/2025 2:32 PM CDT Impressions 03/24/2025 2:40 PM CDT IMPRESSION: 1) No CT evidence for acute pulmonary embolism. 2. No acute pulmonary parenchymal opacity or pleural effusion. Ordered By: KRUPA EVANS Interpreted By: Reed Love MD, 03/24/2025 2:32 PM Narrative 03/24/2025 2:40 PM CDT [facility] [address] [place] [id number] Examination: CTA CHEST PE PROTOCOL Exam time: 03/24/2025 1:31 PM Clinical history: Short of breath, chest pain, A. fib Comparison: None Technique: Axial images obtained from lung apices to adrenal glands with intravenous injection of 75 mL Isovue 370 contrast using low-dose CTA technique. Sagittal and coronal MIP reconstruction. Findings: No evidence of axillary nor supraclavicular lymphadenopathy. No significant mediastinal nor hilar lymphadenopathy. Mild diffuse atherosclerotic calcification involving the thoracic aorta. Pulmonary arteries are well-opacified. No CT evidence for acute pulmonary embolism. Cardiac chambers are normal in size. No pericardial thickening or pericardial effusion. No significant hiatal hernia. Lung parenchymal images demonstrate no gross findings of emphysema nor bronchiectasis. Dependent atelectatic changes are noted in both lungs. No acute pulmonary parenchymal consolidation. No pleural effusion. Chronic degenerative osteoarthritis both glenohumeral joints. Procedure Note Reed Love MD - 03/24/2025 [facility] [address] [place] [address] Examination: CTA CHEST PE PROTOCOL Exam time: 03/24/2025 1:31 PM Clinical history: Short of breath, chest pain, A. fib Comparison: None Technique: Axial images obtained from lung apices to adrenal glands withintravenous injection of 75 mL Isovue 370 contrast using low-dose CTAtechnique. Sagittal and coronal MIP reconstruction. Findings: No evidence of axillary nor supraclavicular lymphadenopathy. Nosignificant mediastinal nor hilar lymphadenopathy. Mild diffuseatherosclerotic calcification involving the thoracic aorta. Pulmonaryarteries are well-opacified. No CT evidence for acute pulmonary embolism.Cardiac chambers are normal in size. No pericardial thickening orpericardial effusion. No significant hiatal hernia. Lung parenchymal images demonstrate no gross findings of emphysema norbronchiectasis. Dependent atelectatic changes are noted in both lungs. Noacute pulmonary parenchymal consolidation. No pleural effusion. Chronicdegenerative osteoarthritis both glenohumeral joints. IMPRESSION: 1) No CT evidence for acute pulmonary embolism. 2. No acute pulmonary parenchymal opacity or pleural effusion. Ordered By: KRUPA EVANS Interpreted By: Reed Love MD, 03/24/2025 2:32 PM us Krupa Evans MD CT Final Result * PARTIAL THROMBOPLASTIN TIME,PTT (03/24/2025 11:45 AM CDT) PTT 27.9 25.1 - 36.5 SEC 03/24/2025 12:08 PM CDT [facility] 03/24/2025 11:4 5 AM CDT us Krupa Evans MD LABORATORY Final Result Performing Organization Address [facility] Co de Phone Number [facility] [address] [place] [address], [place] [phone] * PROTIME/INR, VENOUS (03/24/2025 11:45 AM CDT) PROTIME 11.7 9.1 - 12.4 SEC 03/24/2025 12:08 PM CDT [facility] INR 1.0 03/24/2025 12:08 PM CDT [facility] Comment: Recommend INR ranges for Oral Anticoagulant Therapy: Mechanical Cardiac Values 2.5-3.5 All others indication 2.0-3.0 03/24/2025 11:4 5 AM CDT us Krupa Evans MD LABORATORY Final Result Performing Organization Address City/[facility]/ZIP Co de Phone Number [facility] [address] [place] [address], [place] [phone] * (ABNORMAL) D-DIMER, QUANTITATIVE (03/24/2025 11:45 AM CDT) D-DIMER 6,879(H) 0 - 500 ng{FEU}/mL 03/24/2025 12:08 PM CDT [facility] Comment: D-Dimer values less than or equal to 500 ng/mL FEU have a negative predictive value of >95% for exclusion of deep vein thrombosis and pulmonary embolism. In patients over 50 (who tend to have higher normal baseline D-Dimer values), recent studies suggest age-adjusted D-Dimer cutoff values (calculated as: age [years] x 10 ng/mL) result in equivalent outcomes and no additional false negative findings. 03/24/2025 11:4 5 AM CDT us Krupa Evans MD LABORATORY Final Result Performing Organization Address [facility] Co de Phone Number [facility] [address] [place] [address], [place] [phone] * TROPONIN, QUANT (03/24/2025 11:45 AM CDT) TROPONIN I HIGH SENSITIVITY 15 0 - 75 ng/L 03/24/2025 12:31 PM CDT [facility] Comment: HIGH DOSES OF BIOTIN, TROPONIN-SPECIFIC AUTOANTIBODIES, AND ANTIBODY THERAPY CONTAINING HAMA MAY INTERFERE WITH THIS TEST RESULT. CORRELATION TO CLINICAL HISTORY AND PRESENTATION RECOMMENDED. 03/24/2025 11:4 5 AM CDT us Krupa Evans MD LABORATORY Final Result Performing Organization Address [facility] Co de Phone Number [facility] [address] [place] [address], [place] [phone] * LIPASE (03/24/2025 11:45 AM CDT) LIPASE 35 16 - 77 UNITS/L 03/24/2025 12:32 PM CDT [facility] 03/24/2025 11:4 5 AM CDT us Krupa Evans MD LABORATORY Final Result Performing Organization Address [facility] Co de Phone Number [facility] [address] [place] [address], [place] [phone] * CK (CPK) (03/24/2025 11:45 AM CDT) CPK 51 39 - 308 U/L 03/24/2025 12:32 PM CDT [facility] 03/24/2025 11:4 5 AM CDT us Krupa Evans MD LABORATORY Final Result [facility] [address] [place] [address], [place] [phone] from Last 3 Months Insurance MEDICARE FORMERLY [facility] Advance Directives Documents on File Type Date Recorded Patient Financial Consultant Expl anation Advance Directives and Livin g Will 06/01/2025 3:13 PM POA 11-22-2017 * Full Code (Latest Code Status on File) Date Activated Date Inactivated Comments 06/02/2025 2:21 PM 06/16/2025 2:30 PM * Full Code Date Activated Date Inactivated Comments 05/30/2025 8:06 PM 06/02/2025 1:13 PM * Full Code Date Activated Date Inactivated Comments 04/22/2025 1:51 PM 05/29/2025 2:37 PM * Full Code Date Activated Date Inactivated Comments 01/26/2025 4:30 PM 03/24/2025 11:33 AM Healthcare Agents on File Name Relationship Healthcare Agent Relationshi p Communication Anthony Junior (POA) Son Health Care Agent Rodney Junior Son First Alternate Health Care Agent Lynda Junior Daughter Second Alternate Health Care Agent Care Teams Laboratory Scientist Relationship Specialty Start Date End Date Daniel Murray PA-C [address] [place] [id number] PCP - General PHYSICIAN DIRECTOR INTELLIGENCE ANALYSIS PROGRAMS 07/25/24 Olaf Leblanc MD [address] [address] SURGERY 07/25/24
--- OUTSIDE RECORDS SUMMARY | 2025-06-18 12:05 | XMS_ITS | Encounter Summary ---
Author Organization [facility] Address [address] [place] [address] Care Team Providers Care Dietary Service Aide Name Role Phone Kaye Reynolds PA-C Primary Care Provider [phone] Olaf Leblanc MD Unavailable [phone] Encounter Details Date Type Department Care Team (Late st Contact Info) Description 06/15/2025 Orders Only [facility] [address] [place] [address] Beatriz Hubbard PA-C [address], [place] [id number] [phone] (Work) Social History Tobacco Use Types Packs/Day Years Used Date Smoking Tobacco: Never Smokeless Tobacco: Never Alcohol Use Standard Drinks/Week Comments Never 0 [...] materials from doctor or pharmacy Never 04/22/2025 [facility] Utilities Answer Date Recorded In the past 12 months has th e [employer], gas, oil, or water company threatened to shut off services in your [...] any time in the past 12 m [facility], were you homeless or living in a group home (including now)? 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 Answer Date of Assessment Author Status No 06/02/2025 1:00 PM CDT Vikki Westfall R N Active * Do you have serious difficulty walking or climbing stairs? Answer Date of Assessment Author Status Yes 06/02/2025 1:00 PM CDT Vikki Westfall R N Active * Do you have difficulty dressing or bathing? Answer Date of Assessment Author Status Yes 06/02/2025 1:00 PM CDT Vikki Westfall R N Active * Because of a physical, mental, or emotional condition, do you have difficulty doing errands alone such as visiting a doctor's office or shopping? Answer Date of Assessment Author Status Yes 06/02/2025 1:00 PM CDT Vikki Westfall R N Active documented as of this encounter Mental Status * Because of a physical, mental, or emotional condition, do you have serious difficulty concentrating, remembering, or making decisions? Answer Entry Date Author Status Yes 06/02/2025 1:00 PM CDT Vikki Westfall R N Active documented in this encounter Plan of Treatment Pending Results Name Type Priority Associated Diagnoses Date /Time PROTEIN, ELECTROPHORESIS Lab Routine Fever Gout Stage 3a chronic kidney disease (CMS/HCC) 06/15/2025 1:36 PM CDT Scheduled Orders Name Type Priority Associated Diagnoses Orde r Schedule PROTEIN, ELECTROPHORESIS Lab Routine Fever Gout Stage 3a chronic kidney disease (CMS/HCC) 1 Occurrences starting 06/15/2025 until 06/15/2026 documented as of this encounter Goals Goal Patient Goal Type Associated Problems Recent Progress Patient-Stated? Author Family - family caregiver with be involved in care transitions and discharge planning Lifestyle No Britney Adams RN documented as of this encounter Procedures Procedure Name Priority Date/Time Associated Diagnosis Comments IMMUNOFIXATION Routine 06/15/2025 1:36 PM CDT Fever Gout Stage 3a chronic kidney disease (CMS/HCC) documented in this encounter Results * IMMUNOFIXATION (06/15/2025 1:36 PM CDT) IMMUNOFIXATION SERUM REPORT 06/17/2025 9:43 PM CDT [employer] RUSHINGGIOVANNIELIZABETH DA Comment: Normal pattern. No monoclonal proteins detected. Test Performed by Adan Ray, [email or web address] [facility], [address] [place], [place] Giacomo Romero M.D., Ph.D., Director of Laboratories , [facility] [id number] 06/15/2025 1:36 PM CDT Beatriz Hubbard PA-C LABORATORY Final Result [employer] [facility] [address] [place] [address], documented in this encounter Visit Diagnoses Diagnosis Fever- Primary Fever, unspecified Gout Gout, unspecified Stage 3a chronic kidney disease (CMS/HCC) documented in this encounter Care Teams Dietary Service Aide Relationship Specialty Start Date End Date Kaye Reynolds PA-C [address] [place], [place] [id number] [place] [address] PCP - General PHYSICIAN CIGAR WRAPPER TENDER AUTOMATIC 07/25/24 Olaf Leblanc MD [address] [place] [id number] SURGERY 07/25/24 documented as of this encounter
--- OUTSIDE RECORDS SUMMARY | 2025-06-18 12:05 | XMS_ITS | Clinical Summary ---
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 rep before breakfast Active metoprolol XL (TOPROL-XL) 50 mg 24 hr tabletIndicatio ns:hypertension Take 1 tablet (50 mg total) by mouth solar sales rep before breakfast Active pravastatin (PRAVACHOL) 40 mg tabletIndicatio ns:hyperlipidem ia Take 1 tablet (40 mg total) by mouth solar sales rep before breakfast 1 Active hydroCHLOROthia zide (HYDRODIURIL) 12.5 mg tabletIndicatio ns:hypertension Take 1 tablet (12.5 mg total) by mouth solar sales rep before breakfast 0 9 Active diclofenac-miSO PROStol DR (ARTHROTEC 70) 75-200 mg-mcg EC tablet 1 Active vit D3-folic [id number] 2,000-800-0.32 unit-mcg-mg tablet Take by mouth Active meloxicam (MOBIC) 7.5 mg tablet 2 Active olmesartan (BENICAR) 20 mg tablet 3 Active amoxicillin 500 mg capsule TAKE FOUR CAPSULES BY MOUTH ONE HOUR BEFORE APPOINTMENT 3 Active allopurinoL (ZYLOPRIM) 100 mg tablet Take 1 tablet (100 mg total) by mouth daily for 90 days 4 Active amoxicillin-cla vulanate (AUGMENTIN) 875-125 mg per tablet TAKE 1 TABLET BY MOUTH EVERY 12 HOURS FOR 8 DAYS 4 Active cephalexin (KEFLEX) 500 mg capsule TAKE 1 CAPSULE BY MOUTH TWICE DAILY FOR 10 DAYS 4 Active doxycycline hyclate 100 mg capsule TAKE 1 CAPSULE BY MOUTH TWICE DAILY FOR 10 DAYS 4 Active colchicine (COLCRYS) 0.6 mg tablet TAKE 1 TABLET BY MOUTH ONCE DAILY .IF NEEDED TAKE 2 TABS A DAY. DO NOT EXCEED 2 TABS A DAY 4 Active HYDROcodone-paul taminophen (NORCO) 5-325 mg per tablet Take 1 tablet by mouth every 6 (six) hours as needed 4 Active indomethacin (INDOCIN) 25 mg capsule Take 1 capsule (25 mg total) by mouth 2 times daily 4 Active predniSONE (DELTASONE) 20 mg tablet Take 1 tablet (20 mg) by mouth daily 4 Active amLODIPine (NORVASC) 2.5 mg tablet Take 1 tablet (2.5 mg total) by mouth daily Active allopurinoL (ZYLOPRIM) 300 mg tablet Take 1 tablet (300 mg total) by mouth daily 5 Active Active Problems Problem Noted Date Diagnosed Date Gait abnormality 07/25/2022 Assessment & Plan (07/25/2022 12:42 PM CDT): Possible peripheral neuropathy; gait is a bit worse than I would expect for age-related proprioceptive loss EMG Blodwork for neuropathy Start empiric B12 supplementation for level <400 Dizziness and giddiness 06/23/2021 Primary osteoarthritis of right knee 09/24/2019 Overview (09/24/2019): Added automatically from request for surgery [id number] Ascending aortic aneurysm 06/19/2017 Arthralgia of hip 05/23/2013 Osteoarthritis of shoulder 08/10/2009 Encounters Date Type Department Care Team Description 04/27/2025 Telephone [facility] Cardiology [address] [facility] [facility] 8th [place] [address] [place] [address] Jamel Hernandez MD Reschedule from Last 3 Months Immunizations Immunization Administration Dates Next Due Influenza, Quadrivalent, Hig h Dose, Preservative Free, Intrr 08/23/2020 Influenza, Trivalent, High D ose, Split, Preservative Free, Intramuscular 08/20/2017,08/06/2015 Pneumococcal Conjugate PCV 13 08/06/2015 Pneumococcal Polysaccharide PPV23 05/12/2017 ZOSTER LIVE 08/06/2015 Surgical History Surgery Date Site/Laterality Comments HIP SURGERY CARPAL TUNNEL RELEASE APPENDECTOMY 11/05/1959 - 11/04/1960 TONSILLECTOMY at 8 years old JOINT REPLACEMENT 11/05/2005 - 11/04/2006 Right Right hip resurfacing KNEE SURGERY Medical History Medical History Date Comments Encounter for other orthopedic aftercare Orthopedic aftercare - (Added by TW Conv) Aortic aneurysm HTN (hypertension) Dizziness CKD (chronic kidney disease) Family History Medical History Relation Name Comments Heart attack Father Heart disease Father Transient ischemic attack Father Arthritis Mother Family history of arthritis - (Added by TW Conv) Heart disease Other 1 Family history of cardiac disorder - (Added by TW Conv) Hypertension Other 2 Family history of hypertension - (Added by TW Conv) Stroke Other 3 Family history of cerebrovascular accident (CVA) - (Added by TW Conv) Arthritis Other 4 Family history of arthritis - (Added by TW Conv) Anesthesia problems Neg Hx Relation Name Status Comments Father Mother Other 1 Other 2 Other 3 Other 4 Social History Tobacco Use Types Packs/Day Years Used Date Smoking Tobacco: Never Smokeless Tobacco: Never Tobacco Cessation:Counseling Given: Not Answered Alcohol Use Standard Drinks/Week Comments Not Currently 0 (1 standard drink = 0.6 oz pur e alcohol) Social Connection and Isolation Panel Answer Date Recorded Frequency of Communication w ith Friends and Family More than three times a week 12/24/2019 Frequency of Social Gatherin gs with Friends and Family More than three times a week 12/24/2019 Attends Latter-Day Services More than 4 times per year 12/24/2019 Active Member of Clubs or Organizations No 12/24/2019 Attends Club or Organization Meetings Never 12/24/2019 Marital Status 12/24/2019 Overall Financial Resource Strain (CARDIA) Answe r Date Recorded Difficulty of Paying Living Expenses Not hard at all 12/24/2019 Hunger Vital Sign Answer Date Recorded Worried About Running Out of Food in the Last Ye ar Never true 12/24/2019 Ran Out of Food in the Last Year Never true 12/24/2019 PRAPARE - Transportation Answer Date Re corded Lack of Transportation (Medical) No 12/24/2019 Lack of Transportation (Non-Medical) No 12/24/2019 Sex and Gender Information Value Date Recorded Sex Assigned at Not on file Legal Sex Male 3:29 AM MOSS GATHERER Gender Identity Not on file Sexual Orientation Straight 12/02/2019 8: 02 AM MOSS GATHERER Obstetrics History Last Filed Vital Signs Vital Sign Reading Time Taken Comments Blood Pressure 165/94 02/18/2025 10:18 AM CDT Pulse 56 02/18/2025 10:18 AM CDT Temperature 36.8 C (98.2 F) 01/16/2023 9:15 AM CDT Respiratory Rate 17 06/23/2021 12:5 4 PM CDT Oxygen Saturation 97% 02/18/2025 10: 18 AM CDT Inhaled Oxygen Concentration - - Weight 86.5 kg (190 lb 12.8 oz) 025 10:18 AM CDT Height 162.6 cm (5' 4) 02/18/2025 10:1 8 AM CDT Body Mass Index 32.75 02/18/2025 10:18 AM CDT Plan of Treatment Health Maintenance Due Date Last Done Comments Depression Screening 1941 Fall Risk Assessment 1941 DTaP/Tdap/Td Vaccine (1 - Tdap) 1952 Hepatitis B Screening 1959 Well Visit 65+ 2006 Zoster Vaccine (2 of 3) 10/01/2015 08/06/2015 Influenza Vaccine (#1) 2025 0, 08/20/2017, 08/06/2015 Pneumococcal vaccine 65+ Completed 05/12/2017, 12/2014 Medical Devices Implanted Type Area Process Chemist Device Identifier Shelf Expiration Date Model / Serial / Lot [employer] 5517-F-402 Triathlon Cruciate Retain Bead Knee Right 4 Component Femoral Pa - [id number] Implanted:Qty: 1 on 12/23/2019 by Olaf Leblanc MD at [facility] Other - see comments Right: Knee [employer] [id number] 09/23/2024 5517-F-4 02 / / [id number] [employer] 5536-B-400 Triathlon Coated Knee 4 Baseplate Tibial Tritanium Sterile - [id number] Implanted:Qty: 1 on 12/23/2019 by Olaf Leblanc MD at [facility] Other - see comments Right: Knee [employer] [id number] 09/16/2024 5536-B-4 00 / / [id number] [employer] 5531-G-411 Triathlon 11mm Cruciate Substitute Knee 4 Insert Tibial X3 - [id number] Implanted:Qty: 1 on 12/23/2019 by Olaf Leblanc MD at [facility] Other - see comments Right: Knee [employer] [id number] 12/21/2023 5531-G-4 11 / / [id number] Hip Replacement Right: Hip Insurance MEDICARE [facility] Address: [facility] [address] [place] [address] [facility] MEDICARE SUPPLEMENT INSURANCE MEDICARE A[employer]NA SENIOR SUPPLEMENT Member Subscriber Plan / Payer (Ef fective 2018-Present) Name:Sharita Casey Jitendra Relation to Subscriber:Not on file Subscriber ID:Not on file Payer ID:[id number] Group ID:[id number] Type:COMMERCIAL Address: [address] MEDICARE SUPPLEMENT INSURANCE [place] [address] [place] [address] SENIOR SUPPLEMENT MEDICARE CIG[employer] MEDICARE SUPPLEMENT INSURANCE MEDICARE Advance Directives For more information, please contact: [phone] Documents on File Type Date Recorded Patient Paper Cone Grader Expl anation ADVANCE DIRECTIVE 12/31/2019 8:54 AM POWER OF SCHOOL DIRECTOR-MEDICAL ADVANCE DIRECTIVE 12/23/2019 11:02 PM WILBER R OF SCHOOL DIRECTOR-MEDICAL * Full Code (Latest Code Status on File) Date Activated Date Inactivated Comments 12/23/2019 4:59 PM 12/26/2019 4:37 PM Care Teams Pizza Baker Relationship Specialty Start Date End Date Rasheed Amaya MD [address] [place] [id number] PCP - General Family Medicine 04/15/24
[2025-06-18 12:33] LABS: Alveolar/Arterial O2 Gradient 42.9 mmHg; Fractional Inspired Oxygen 21 %; HCO3 ABG 17.4 mEq/l (22.0-26.0); Oxygen Content ABG 19.5 %vol (16.0-22.0); Oxygen Saturation ABG 96.7 % (95.0-100.0); PO2 ABG 78.6 mmHg (80.0-100.0); PO2 FiO2 Ratio Arterial Blood 3.74 %
[2025-06-18 12:37] LABS: Modified Allen's Test Pass; PCO2 ABG 23.6 mmHg (35.0-45.0); Site Drawn RIGHT RADIAL
--- NOTE | 2025-06-18 13:45 | ED_ITS ---
HPI - General Adult General Chief complaint: Shortness of Breath/Dyspnea Stated complaint: DYSPNEA Time Seen by Provider: 06/18/25 10:59 History of Present Illness HPI narrative: This is an 85-year-old male presenting with shortness of breath. Patient was just discharged from [facility] yesterday to [place] after a prolonged hospitalization. Patient was admitted after he was becoming progressively more weak and confused. Per the family they did not find a cause of his progressive weakness and he is now bedbound. He was discharged to [facility] yesterday and the staff there sent him in today saying that they found him unresponsive and short of breath. Per the patient's son the patient has sleep apnea. He can also be very difficult to wake at times. Patient self has dementia and does not recall any of these events. The patient self says he has some shortness of breath put is a poor historian. Related Data Home Medications ?Medication ?Instructions ?Recorded ?Confirmed ?Last Taken ?Type allopurinol 100 mg tablet 100 mg PO DAILY 11/27/24 06/18/25 06/18/25 History allopurinol 300 mg tablet 300 mg PO DAILY 11/27/24 06/18/25 06/18/25 History donepezil 10 mg tablet 10 mg PO HS 06/18/25 06/18/25 06/17/25 History furosemide 20 mg tablet (Lasix) 20 mg PO QAM edema 06/18/25 06/18/25 06/18/25 History lidocaine 4 % topical patch 1 patch topical DAILY 06/18/25 06/18/25 06/18/25 History tramadol 50 mg tablet 50 mg PO QID PRN pain 06/18/25 06/18/25 Unknown History Allergies Allergy/AdvReac Type Severity Reaction Status Date / Time doxycycline AdvReac Intermediate Rash Verified 05/15/25 08:05 [facility] Past Medical History Medical History Renal insufficiency Atrial fibrillation Hyperlipidemia Anxiety and depression Aortic aneurysm Gout Hyperuricemia History of bruising easily Hypertension Osteoarthritis of left hip Bone infection Abscess Unsteadiness Vertigo Surgical History Surgical History History of tonsillectomy History of tooth extraction History of total right knee replacement (~2020) History of hip replacement (~2005) Social History Social History Social History: 05/12/25 very confident with medical forms Smoking status: Never smoker Alcohol intake: never Substance use: never Substance use type: does not use Do You Feel Safe in your Home?: Yes Lack of Transportation: No Lack of Food: Never True Current Housing: I Have Housing Concerned About Future Housing: No Difficulty Paying Gas/Electric Bills: No Difficulty Paying for Meds: No Currently Unemployed: No Education: Bachelor's Degree Difficulty w/ Childcare or Family Care: No Living arrangements: alone Occupation/Education: retired Gender identity (if verbalized by the patient): Male Spiritual care concerns: No Agree to blood products: Yes Exam 2 Narrative: APPEARANCE: No apparent distress. A&O times 1-2, chronically unwell appearing Head: atraumatic. EYES: EOMI, NOSE: Atraumatic NECK: Trachea midline RESPIRATORY: Tachypneic, fine crackles in lower lobes, right > left CARDIOVASCULAR: RRR, no peripheral edema ABDOMINAL: Non-distended soft nontender MUSCULOSKELETAl: No obvious deformities NEURO: Alert. Moving 4/4 extremities SKIN:: Warm, dry. Normal color PSYCHIATRIC: Normal affect Course Vital Signs Vital signs: Vital Signs Temperature 97.6 F 06/18/25 10:54 Pulse Rate 76 06/18/25 10:54 Respiratory Rate 20 06/18/25 10:54 Blood Pressure 102/86 06/18/25 10:54 Pulse Oximetry 97 06/18/25 10:54 Temperature 97.6 F 06/19/25 06:00 Pulse Rate 65 06/19/25 09:41 Respiratory Rate 16 06/19/25 08:30 Blood Pressure 162/75 H 06/19/25 06:00 Pulse Oximetry 95 06/19/25 09:51 Oxygen Delivery Room Air 06/19/25 09:51 Medical Decision Making MDM Narrative Medical decision making narrative: -Course: 85-year-old male presenting from the care home after an unresponsive episode and shortness of breath. Patient is endorsing shortness of breath although he is a poor historian and there appears to be an element dementia. Broad workup obtained. CT chest abdomen pelvis showed patchy infiltrates in the lungs. White count is elevated at 13.2. Patient is tachypneic although he is not requiring supplemental oxygen. Overall the patient is unwell appearing but its difficult to tell if it is more acute vs chronic. Patient started on ceftriaxone and azithromycin for pneumonia. Records have been requested from [facility]. Patient will be admitted the hospital for further management. -DDX includes but is not limited to: Pneumonia, sepsis, obstructive sleep apnea, viral illness, UTI dehydration dementia Vital Signs Vital Signs: Vital Signs Temperature 97.6 F 06/18/25 10:54 Pulse Rate 76 06/18/25 10:54 Respiratory Rate 20 06/18/25 10:54 Blood Pressure 102/86 06/18/25 10:54 Pulse Oximetry 97 06/18/25 10:54 Temperature 97.6 F 06/19/25 06:00 Pulse Rate 65 06/19/25 09:41 Respiratory Rate 16 06/19/25 08:30 Blood Pressure 162/75 H 06/19/25 06:00 Pulse Oximetry 95 06/19/25 09:51 Oxygen Delivery Room Air 06/19/25 09:51 Lab Data 06/19/25 06:42 06/19/25 06:42 Labs: Lab Results 06/18/25 06/18/25 06/18/25 Range/Units 11:02 14:24 14:25 WBC 13.3 H (4.5-10.0) K/mm3 RBC 4.72 (4.6-6.20) M/mm3 Hgb 13.8 L (14.0-18.0) g/dL Hct 43.0 (42.0-52.0) % MCV 91.1 (80-100) fl MCH 29.2 (26-34) pg MCHC 32.1 (32-36) g/dl RDW 15.8 H (11.5-14.5) % Plt Count 203 (150-375) k/mm3 MPV 9.8 (7.4-10.4) fl Immature Gran % (Auto) 1.1 H (0-0.5) % Neut % (Auto) 86.2 H (45.5-73.1) % Lymph % (Auto) 4.8 L (18.3-44.2) % [place] % (Auto) 6.3 (2.6-8.5) % Eos % (Auto) 1.1 (0-4.4) % Baso % (Auto) 0.5 (0.2-1.2) % Lymph # (Auto) 0.64 L (0.9-3.2) K/mm3 [place] # (Auto) 0.8 H (0.1-0.6) K/mm3 Eos # (Auto) 0.1 (0-0.3) K/mm3 Baso # (Auto) 0.1 (0.0-0.1) K/mm3 Abs Immat Gran (auto) 0.14 H (0.00-0.031) K/mm3 Absolute Neuts (auto) 11.5 H (1.3-6.7) K/mm3 Absolute Nucleated RBC 0.000 (0.0-0.012) K/mm3 Nucleated RBC % 0.0 (0.0-0.2) % PT 14.4 14.6 (11.1-14.7) Seconds INR 1.1 1.1 APTT 30.3 30.9 (22.3-36.8) Seconds Sodium 139 (137-145) mmol/L Potassium 4.1 (3.4-5.0) mmol/L Chloride 107 (98-107) mmol/L Carbon Dioxide 23 (22-30) mmol/L Anion Gap 9 (4-12) mmol/L BUN 25 H (9-20) mg/dL Creatinine 1.52 H (0.7-1.3) mg/dL Estim Creat Clear Calc 34 ml/min Estimated GFR 44 L (59 - ) Glucose 176 H (65-110) mg/dL Lactic Acid (0.7-2.0) mmol/L Calcium 9.4 (8.4-10.2) mg/dL Magnesium (1.6-2.3) mg/dL Total Bilirubin 0.6 (0.2-1.3) mg/dL AST 29 (17-59) U/L ALT 27 (6-50) U/L Alkaline Phosphatase 68 (38-126) U/L Troponin I < 0.012 (0.000-0.034) ng/mL NT-Pro-B Natriuret Pep 869 H (19.9-100) pg/mL Total Protein 7.1 (6.3-8.2) g/dL Albumin 3.8 (3.5-5.1) g/dL Lipase (23-300) U/L TSH (Reflex) 3.350 (0.465-4.68) uIU/mL Urine Color (Yellow) Urine Appearance (Clear) Urine pH (5.0-9.0) Ur Specific [place] (1.001-1.035) Urine Protein (Negative) mg/dL Urine Glucose (UA) (Negative) mg/dL Urine Ketones (Negative) mg/dL Ur Blood (Man) (Negative) Urine Nitrate (Negative) Urine Bilirubin (Negative) Urine Urobilinogen (<2.0) mg/dL Leukocyte Esterase Rfl (Negative) LUNA/UL Urine RBC (0-2) /hpf Urine WBC (0-3) /hpf Ur Squamous Epith Cells (Few) /hpf Urine Bacteria /hpf Urine Casts Salicylates < 1.0 L (2-20) mg/dL Influenza A (RT-PCR) Negative (Negative) Influenza B (RT-PCR) Negative (Negative) RSV (RT-PCR) Negative (Negative) SARS-CoV-2 RNA (RT-PCR) Negative (Negative) 06/18/25 06/18/25 06/18/25 Range/Units 14:26 15:02 15:06 WBC (4.5-10.0) K/mm3 RBC (4.6-6.20) M/mm3 Hgb (14.0-18.0) g/dL Hct (42.0-52.0) % MCV (80-100) fl MCH (26-34) pg MCHC (32-36) g/dl RDW (11.5-14.5) % Plt Count (150-375) k/mm3 MPV (7.4-10.4) fl Immature Gran % (Auto) (0-0.5) % Neut % (Auto) (45.5-73.1) % Lymph % (Auto) (18.3-44.2) % [place] % (Auto) (2.6-8.5) % Eos % (Auto) (0-4.4) % Baso % (Auto) (0.2-1.2) % Lymph # (Auto) (0.9-3.2) K/mm3 [place] # (Auto) (0.1-0.6) K/mm3 Eos # (Auto) (0-0.3) K/mm3 Baso # (Auto) (0.0-0.1) K/mm3 Abs Immat Gran (auto) (0.00-0.031) K/mm3 Absolute Neuts (auto) (1.3-6.7) K/mm3 Absolute Nucleated RBC (0.0-0.012) K/mm3 Nucleated RBC % (0.0-0.2) % PT (11.1-14.7) Seconds INR APTT (22.3-36.8) Seconds Sodium (137-145) mmol/L Potassium (3.4-5.0) mmol/L Chloride (98-107) mmol/L Carbon Dioxide (22-30) mmol/L Anion Gap (4-12) mmol/L BUN (9-20) mg/dL Creatinine (0.7-1.3) mg/dL Estim Creat Clear Calc ml/min Estimated GFR (59 - ) Glucose (65-110) mg/dL Lactic Acid 1.6 (0.7-2.0) mmol/L Calcium (8.4-10.2) mg/dL Magnesium 1.9 (1.6-2.3) mg/dL Total Bilirubin (0.2-1.3) mg/dL AST (17-59) U/L ALT (6-50) U/L Alkaline Phosphatase (38-126) U/L Troponin I < 0.012 (0.000-0.034) ng/mL NT-Pro-B Natriuret Pep (19.9-100) pg/mL Total Protein (6.3-8.2) g/dL Albumin (3.5-5.1) g/dL Lipase 87 (23-300) U/L TSH (Reflex) (0.465-4.68) uIU/mL Urine Color Yellow (Yellow) Urine Appearance Clear (Clear) Urine pH 5.5 (5.0-9.0) Ur Specific [place] 1.016 (1.001-1.035) Urine Protein 1+ H (Negative) mg/dL Urine Glucose (UA) Negative (Negative) mg/dL Urine Ketones Negative (Negative) mg/dL Ur Blood (Man) Negative (Negative) Urine Nitrate Negative (Negative) Urine Bilirubin Negative (Negative) Urine Urobilinogen 0.2 (<2.0) mg/dL Leukocyte Esterase Rfl Negative (Negative) LUNA/UL Urine RBC 0-2 (0-2) /hpf Urine WBC 0-5 (0-3) /hpf Ur Squamous Epith Cells None seen (Few) /hpf Urine Bacteria None seen /hpf Urine Casts 3-5 Salicylates (2-20) mg/dL Influenza A (RT-PCR) (Negative) Influenza B (RT-PCR) (Negative) RSV (RT-PCR) (Negative) SARS-CoV-2 RNA (RT-PCR) (Negative) ABG Data ABG results: 06/18/25 11:53 Puncture Site Right radial ABG pH 7.486 H ABG pCO2 23.6 L* ABG pO2 78.6 L ABG PO2/FiO2 Ratio 3.74 ABG HCO3 17.4 L ABG O2 Saturation 96.7 ABG O2 Content 19.5 ABG Base Excess -3.9 A-a Gradient 42.9 Oxyhemoglobin 95.3 Total Hemoglobin 14.5 O2 Delivery Device Not Reportable O2 Liters/Min Not Reportable FiO2 21 Discharge Plan Discharge Clinical Impression: PNA (pneumonia) Qualifiers: Pneumonia type: due to unspecified organism Laterality: bilateral Lung location: unspecified part of lung Qualified Code(s): J18.9 - Pneumonia, unspecified organism Patient Disposition: Still a Patient Condition: Guarded Prognosis
[2025-06-18 14:44] LABS: Salicylate < 1.0 mg/dL (2-20)
[2025-06-18 14:45] LABS: Add Urine Microscopic? YES; Appearance Urine Clear (Clear); Glucose Urine UA Negative (Negative); Leukocyte Esterase Ur Negative LEU/UL (Negative); Nitrate Urine Negative (Negative); Specific Grav Ur 1.016 (1.001-1.035)
[2025-06-18 14:51] LABS: INR 1.1; Prothrombin Time 14.6 Seconds (11.1-14.7)
--- NOTE | 2025-06-18 15:12 | PC.NURSE ---
[facility] updated
[2025-06-18 15:13] LABS: Influenza A QL RT-PCR Negative (Negative); Influenza B QL RT-PCR Negative (Negative); RSV RNA, RT-PCR Negative (Negative); SARS-CoV-2 RNA PCR Negative (Negative)
[2025-06-18 15:17] LABS: Thyroid Stimulating Hormone Reflex 3.350 uIU/mL (0.465-4.68)
[2025-06-18 15:21] LABS: Partial Thromboplastin Time 30.9 Seconds (22.3-36.8)
[2025-06-18 15:36] LABS: Lipase 87 U/L (23-300); Magnesium 1.9 mg/dL (1.6-2.3)
[2025-06-18 15:43] LABS: Troponin I < 0.012 ng/mL (0.000-0.034)
[2025-06-18] MEDS: SODIUM CHLORIDE 0.9% IV 1,000 ML 999 ML IV CONT (17:04)
[2025-06-18] MEDS: cefTRIAXone 1 GM in SODIUM CHLORIDE 0.9% IV 50 ML 100 ML IVPB (17:04)
[2025-06-18] MEDS: AZITHROMYCIN IV 500 MG in SODIUM CHLORIDE 0.9% IV 250 ML IVPB (17:09)
--- NOTE | 2025-06-18 18:30 | PM.IMHP ---
H&P: HPI History of Present Illness Date/Time: 06/18/25 18:30 Chief Complaint: Shortness of Breath Narrative: 85 y/o M with PMH of anxiety, depression, aortic aneurysm, renal insufficiency, hypertension, and suspected dementia presents here with shortness of breath. The patient presents here from [facility] for further evaluation of shortness of breath and unresponsiveness. Per staff report to EMS, he was found unresponsive. The patient reports he was just sleeping and not unresponsive. The son provided collateral information stating over the last few months he has been increasingly difficult to wake up and has been more somnolent overall. Son also described witnessing apneic episodes and altered breathing while asleep. The patient and the son deny any previous history of sleep apnea or sleep study performed. Additionally, the patient is reporting shortness of breath of unclear onset. He denies accompanying fever, chills, body aches, chest pain, cough, nausea, vomiting, or diarrhea. Of note, the patient was admitted prior to admission to [facility] at [facility] for worsening mobility, stamina, and independence. He was admitted on 05/29 and discharged on 06/02. General decline had been ongoing since October of 2024. At that time he was evaluated by a Neurology who expected AA Alzheimer's/dementia diagnosis, MRI at that time was negative for infarction. But due to gait instability, multiple falls, and physical deconditioning he was discharged to [facility] for acute rehab services. Initial VS at presentation: 97.6? F, HR 76, R 20, 102/86, and 97% on RA. ED workup showed: WBC 13.3, hemoglobin 13.8, ABG showed a CO2 of 23.6, creatinine 1.52 and GFR 44, glucose 176, lactic 1.6, BNP 869 (normal for age), troponin negative x3, TSH within normal limits, and UA showed 1+ protein otherwise unremarkable. Viral PCR negative. CXR showed small opacities in the mid and lower lung zones. Chest/abdomen/pelvis CTA showed subtle bony irregularity of the superior endplate of the T12 vertebral body which may be due to compression fracture of indeterminate age, no PE, moderate size patchy and reticular opacities scattered throughout the lungs most prominent in the lower lungs, diverticulosis with a small amount of surrounding fat stranding (mild acute diverticulitis is possible the appropriate clinical setting), indeterminate 1.8 cm low-density lesion in the right lower lobe of liver, abdominal aorta is ectatic, infrarenal abdominal aortic aneurysm measuring 3.5 x 2.5 cm, moderate amount of atherosclerosis disease in the abdominal aorta. Review of Systems Review of Systems: All systems reviewed & are unremarkable except as noted in HPI and below PMFSH Past Medical History Medical History Renal insufficiency Atrial fibrillation Hyperlipidemia Anxiety and depression Aortic aneurysm Gout Hyperuricemia History of bruising easily Hypertension Osteoarthritis of left hip Bone infection Abscess Unsteadiness Vertigo Surgical History Surgical History History of tonsillectomy History of tooth extraction History of total right knee replacement (~2020) History of hip replacement (~2005) Social History Social History Social History: 05/12/25 very confident with medical forms Smoking status: Never smoker Alcohol intake: never Substance use: unknown Do You Feel Safe in your Home?: Yes Lack of Transportation: No Lack of Food: Never True Current Housing: I Have Housing Concerned About Future Housing: No Difficulty Paying Gas/Electric Bills: No Difficulty Paying for Meds: No Currently Unemployed: No Education: Bachelor's Degree Difficulty w/ Childcare or Family Care: No Living arrangements: alone Occupation/Education: retired Gender identity (if verbalized by the patient): Male Spiritual care concerns: No Agree to blood products: Yes Meds Home Medications and Allergies Home Medications ?Medication ?Instructions ?Recorded ?Confirmed ?Type allopurinol 100 mg tablet 100 mg PO DAILY 11/27/24 05/15/25 History allopurinol 300 mg tablet 300 mg PO DAILY 11/27/24 05/15/25 History amlodipine 2.5 mg tablet 2.5 mg PO DAILY #90 tabs 01/19/25 05/15/25 Rx olmesartan 40 mg tablet 40 mg PO DAILY #90 tabs 01/19/25 05/15/25 Rx nystatin 100,000 unit/gram topical 1 applic topical BID #30 grams 01/27/25 05/15/25 Rx cream clotrimazole-betamethasone 1 1 applic topical BID Groin rash 04/20/25 05/15/25 Rx %-0.05 % topical cream #45 grams metoprolol succinate 50 mg 50 mg PO DAILY #90 tabs 05/04/25 05/15/25 Rx tablet,extended release 24 hr furosemide 20 mg tablet (Lasix) 20 mg PO QAM PRN edema #14 tabs 05/18/25 Rx pregabalin 50 mg capsule (Lyrica) 50 mg PO BID #180 caps 05/18/25 Rx tramadol 50 mg tablet 50 mg PO Q6H PRN pain #30 tabs 05/20/25 Rx prednisone 2.5 mg tablet 2.5 mg PO DAILY #30 tabs 05/26/25 Rx Allergies Allergy/AdvReac Type Severity Reaction Status Date / Time doxycycline AdvReac Intermediate Rash Verified 05/15/25 08:05 Vital Signs Vital Signs - 24 hr 06/18/25 10:54 06/18/25 11:04 06/18/25 11:45 Temperature 97.6 F Pulse Rate 76 77 72 Respiratory Rate 20 21 H Blood Pressure 102/86 107/86 Pulse Oximetry 97 93 Oxygen Delivery 06/18/25 14:00 06/18/25 14:06 06/18/25 15:30 Temperature Pulse Rate 69 75 Respiratory Rate 14 20 Blood Pressure 103/89 133/89 Pulse Oximetry 97 98 100 Oxygen Delivery Room Air 06/18/25 17:00 Temperature Pulse Rate 77 Respiratory Rate 22 H Blood Pressure 114/96 H Pulse Oximetry 96 Oxygen Delivery Exam Const: General: comfortable and no acute distress Other: , male, elderly, obese body habitus, chronically ill-appearing HENMT: Face/Nose/Sinus: Normal nares present Mouth: Yes moist mucous membranes Eyes: General: appearance normal, both eyes and all related structures Sclera: sclerae normal Pupils: Equal, round and reactive pupils present EOM: EOMs intact bilaterally Resp: Other: Bibasilar crackles, no wheezing, mild tachypnea without accessory muscle use. Witnessed apnea while falling asleep Cardio: Rate: regular rate Rhythm: regular rhythm Other: S1-S2 present without murmur, rub, ectopy GI: Other: Abdomen soft, rounded, nontender. Normoactive bowel sounds in all quadrants. Skin: General skin exam: normal color and no rashes or lesions noted Wounds: no wounds Neuro: Speech: normal speech Motor exam (neuro): 5/5 motor strength present throughout Sensory Exam: normal sensation Other: A&O x4 present, very somnolent and falls asleep easily during exam however also awakens easily Extrem: General: normal to inspection Psych: Mental Status: mental status grossly normal Affect: normal affect Other: Fair insight and judgment, pleasant H&P: Results Labs Labs: Short CBC 06/18/25 Range/Units 11:02 WBC 13.3 H (4.5-10.0) K/mm3 Hgb 13.8 L (14.0-18.0) g/dL Hct 43.0 (42.0-52.0) % Plt Count 203 (150-375) k/mm3 BMP 06/18/25 11:02 Sodium 139 Potassium 4.1 Chloride 107 Carbon Dioxide 23 BUN 25 H Creatinine 1.52 H Glucose 176 H Calcium 9.4 Cardiac Enzymes 06/18/25 06/18/25 Range/Units 11:02 15:06 Troponin I < 0.012 < 0.012 (0.000-0.034) ng/mL Liver Function 06/18/25 Range/Units 11:02 Total Bilirubin 0.6 (0.2-1.3) mg/dL AST 29 (17-59) U/L ALT 27 (6-50) U/L Alkaline Phosphatase 68 (38-126) U/L Albumin 3.8 (3.5-5.1) g/dL Urine 06/18/25 Range/Units 14:26 Urine Color Yellow (Yellow) Urine Appearance Clear (Clear) Urine pH 5.5 (5.0-9.0) Ur Specific [place] 1.016 (1.001-1.035) Urine Protein 1+ H (Negative) mg/dL Urine Glucose (UA) Negative (Negative) mg/dL Assessment and Plan Assessment and plan (1) PNA (pneumonia): Qualifiers: Pneumonia type: due to unspecified organism Laterality: bilateral Lung location: unspecified part of lung Qualified Code(s): J18.9 - Pneumonia, unspecified organism Code(s): J18.9 - Pneumonia, unspecified organism Status: Acute Assessment and Plan: - CXR: 1. Small opacities in the mid and lower lungs. Differential includes atelectasis/scarring or infiltrates. 2. Left-sided central venous catheter with its tip at the junction between the left brachiocephalic vein and superior vena cava. - CTA chest/abd/pelvis: 1. Subtle bony irregularity of the superior endplate of the T12 vertebral body which may be due to a compression fracture of indeterminate age. Correlate for point tenderness. Consider an MRI of the thoracic spine for further assessment. The finding is new as compared to the study from 2017. 2. No pulmonary embolism identified. 3. Moderate sized patchy and reticular opacities scattered throughout both lungs most prominent in the lower lungs. The findings are new as compared to the chest CT from 06/05/2017. Differential includes but is not limited to edema or pneumonia. Follow-up is recommended. 4.Diverticulosis in the descending and sigmoid colon with a small amount of surrounding fat stranding. Mild acute diverticulitis is possible in the appropriate clinical setting. 5.Indeterminate 1.8 cm low-density lesion in the right lobe of the liver. A liver mass CT or MRI is recommended. 6.Abdominal aorta is ectatic. Infrarenal abdominal aortic aneurysm measuring 3.5 x 2.5 cm. Moderate amount of atherosclerosis disease in the abdominal aorta. - started on ceftriaxone and azithromycin, adding Flagyl due to possible concerns of early diverticulitis. Currently asymptomatic beyond generalized weakness and somnolence. - check MRSA PCR and sputum culture if obtainable - supportive care: Tessalon Perles p.r.n., Mucinex tory, DuoNebs p.r.n., Tylenol p.r.n. - no current supplemental O2 requirement Given patient's general appearance, increased respiratory effort, and somnolence he was admitted for observation and initiation of broad-spectrum IV antibiotics. (2) Failure to thrive: Qualifiers: Failure to thrive age range: in adult Qualified Code(s): R62.7 - Adult failure to thrive Status: Acute Assessment and Plan: - has had worsening gait instability, multiple falls, and physical deconditioning since October of 2024 (last 6 months). Was worked up at [facility] in [place] at the end of May, no acute findings. Currently going through rehab at [facility]. - PT/OT eval and treatment (3) Atrial fibrillation: Qualifiers: Atrial fibrillation type: unspecified Qualified Code(s): I48.91 - Unspecified atrial fibrillation Code(s): I48.91 - Unspecified atrial fibrillation Status: Chronic Assessment and Plan: - initial EKG showed sinus rhythm, left ventricular hypertrophy with ST-T change, minimal Q-waves high lateral leads, baseline artifact. When compared to EKG done in May of 2024 there are no significant changes. - continue home medications: Metoprolol (4) Stage 3a chronic kidney disease: Code(s): N18.31 - Chronic kidney disease, stage 3a Status: Chronic Assessment and Plan: - creatinine 1.52, BUN 25, GFR 44 - baseline creatinine: 1.5 - 2.0 - follows with nephrology at [place] - trend renal function - trend electrolytes, correct as needed (5) Essential (primary) hypertension: Code(s): I10 - Essential (primary) hypertension Status: Chronic Assessment and Plan: - chronic, currently 119/71 - continue home medications: Amlodipine - monitor Plan - Will need outpatient follow-up on an indeterminate 1.8 cm low-density lesion in the right lobe of the liver that was seen on CT on 06/18. A liver mass CT or MRI is recommended. - son describing periods of apnea and altered breathing wall sleep, will check ApneaLink Diet: Heart healthy GI Prophylaxis: n/a DVT Prophylaxis: Lovenox IV fluids: None Lines/Tubes: Peripheral IV Code Status: Full code Quality VTE Prophylaxis VTE prophylaxis: pharmacologic ordered Hospitalist MIPS Advance Care Plan I have confirmed that the patient's Advanced Care Plan is present, code status is documented, or surrogate decision maker is listed in patient medical record.: Yes Medication Reconciliation I have utilized all available resources to obtain, update and review the patients current medications (includes all prescriptions, OTC, herbals, cannabis, and nutritional supplements).: Yes
[2025-06-18 19:13] LABS: Troponin I < 0.012 ng/mL (0.000-0.034)
--- NOTE | 2025-06-18 21:47 | ADMGEN ---
This patient, Casey Sheriff, was admitted to [facility] Surg Room 317-02. Patient/family oriented to hospital policies and general routines including ID bracelet, bed and alarms, visiting hours, pain management, procedures, bathroom and other care routines, personal items, smoking policy, room service/diet, and visiting hours. Information on how to activate the Rapid Response Team has been discussed. Patient/Family are encouraged to report perceived risks to care and to ask questions if they do not understand what they are told or what they should do.
[2025-06-18] MEDS: metroNIDAZOLE 500 MG/ISO 100ML 500 MG/100 ML BAG 100 MG IVPB (23:00)
[2025-06-18 23:46] LABS: MRSA (PCR) NOT DETECTED (NOT DETECTE)
[2025-06-19] MEDS: DONEPEZIL HCL 10 MG TABLET PO ×2 (00:01→21:59)
--- NOTE | 2025-06-19 05:13 | PC.NURSE ---
On 06/18/25-06/19/25, GONZALO Cespedes, provided care and completed [facility] documentation on this patient. I have reviewed her documentation and agree with the findings.
[2025-06-19] MEDS: metroNIDAZOLE 500 MG/ISO 100ML 500 MG/100 ML BAG 100 MG IVPB ×2 (05:54→13:26)
[2025-06-19 06:00] VITALS: BP 162/75; PULSE 65; RESP 16; TEMP 36.4; O2SAT 98
[2025-06-19 07:04] LABS: Hematocrit 39.1 % (42.0-52.0); Hemoglobin 12.6 g/dL (14.0-18.0); Immature Granulocyte Percent A 1.0 % (0-0.5); Lymphocytes Absolute Auto 0.57 K/mm3 (0.9-3.2); Mean Corpuscular HGB Conc 32.2 g/dl (32-36); Mean Corpuscular Hemoglobin 29.4 pg (26-34); Mean Corpuscular Volume 91.1 fl (80-100); Nucleated Red Blood Cells Absolute Auto 0.000 K/mm3 (0.0-0.012); Nucleated Red Blood Cells Perc 0.0 % (0.0-0.2); Platelet Count Result 175 k/mm3 (150-375); Red Blood Count 4.29 M/mm3 (4.6-6.20); White Blood Count 8.7 K/mm3 (4.5-10.0)
[2025-06-19 07:30] LABS: Anion Gap 7 mmol/L (4-12); Blood Urea Nitrogen 23 mg/dL (9-20); Calcium 9.0 mg/dL (8.4-10.2); Carbon Dioxide 21 mmol/L (22-30); Chloride 110 mmol/L (98-107); Estimated CRCL calculation 36 ml/min; Estimated Glomerular Filt Rate 48; Glucose 88 mg/dL (65-110); Potassium 3.6 mmol/L (3.4-5.0); Sodium 138 mmol/L (137-145)
[2025-06-19 08:30] VITALS: PULSE 65; RESP 16; O2SAT 95
[2025-06-19 09:41] VITALS: PULSE 65
[2025-06-19] MEDS: METOPROLOL SUCCINATE EXT REL 50 MG TABCR PO (09:41)
[2025-06-19] MEDS: OLMESARTAN MEDOXOMIL 20 MG TABLET 40 MG PO (09:41)
[2025-06-19] MEDS: FUROSEMIDE 20 MG TABLET PO (09:41)
[2025-06-19 09:51] VITALS: O2SAT 95
[2025-06-19] MEDS: PREGABALIN (*CRX) 50 MG CAPSULE PO ×2 (09:51→22:00)
[2025-06-19] MEDS: LIDOCAINE 5% PATCH 1 PATCH TRANSDERM (09:55)
[2025-06-19] MEDS: ENOXAPARIN 40 MG/0.4 ML SYRINGE SUB-Q (09:55)
--- NOTE | 2025-06-19 12:19 | P.PNIM_ITS ---
Progress Note: A&P Assessment and Plan (1) PNA (pneumonia): Qualifiers: Laterality: bilateral Lung location: unspecified part of lung Pneumonia type: due to unspecified organism Qualified Code(s): J18.9 - Pneumonia, unspecified organism Code(s): J18.9 - Pneumonia, unspecified organism Status: Acute Assessment and Plan: - CXR: 1. Small opacities in the mid and lower lungs. Differential includes atelectasis/scarring or infiltrates. 2. Left-sided central venous catheter with its tip at the junction between the left brachiocephalic vein and superior vena cava. - CTA chest/abd/pelvis: 1. Subtle bony irregularity of the superior endplate of the T12 vertebral body which may be due to a compression fracture of indeterminate age. Correlate for point tenderness. Consider an MRI of the thoracic spine for further assessment. The finding is new as compared to the study from 2017. 2. No pulmonary embolism identified. 3. Moderate sized patchy and reticular opacities scattered throughout both lungs most prominent in the lower lungs. The findings are new as compared to the chest CT from 06/05/2017. Differential includes but is not limited to edema or pneumonia. Follow-up is recommended. 4.Diverticulosis in the descending and sigmoid colon with a small amount of surrounding fat stranding. Mild acute diverticulitis is possible in the appropriate clinical setting. 5.Indeterminate 1.8 cm low-density lesion in the right lobe of the liver. A liver mass CT or MRI is recommended. 6.Abdominal aorta is ectatic. Infrarenal abdominal aortic aneurysm measuring 3.5 x 2.5 cm. Moderate amount of atherosclerosis disease in the abdominal aorta. - started on ceftriaxone and azithromycin, adding Flagyl due to possible concerns of early diverticulitis. Currently asymptomatic beyond generalized weakness and somnolence. - check MRSA PCR and sputum culture if obtainable - supportive care: Tessalon Perles p.r.n., Mucinex tory, DuoNebs p.r.n., Tylenol p.r.n. - no current supplemental O2 requirement Given patient's general appearance, increased respiratory effort, and somnolence he was admitted for observation and initiation of broad-spectrum IV antibiotics. downgrade to PO chanduith (2) Failure to thrive: Qualifiers: Failure to thrive age range: in adult Qualified Code(s): R62.7 - Adult failure to thrive Status: Acute Assessment and Plan: - has had worsening gait instability, multiple falls, and physical deconditioning since October of 2024 (last 6 months). Was worked up at [facility] in [place] at the end of May, no acute findings. Currently going through rehab at [facility]. - PT/OT eval and treatment (3) Atrial fibrillation: Qualifiers: Atrial fibrillation type: unspecified Qualified Code(s): I48.91 - Unspecified atrial fibrillation Code(s): I48.91 - Unspecified atrial fibrillation Status: Chronic Assessment and Plan: - initial EKG showed sinus rhythm, left ventricular hypertrophy with ST-T c hange, minimal Q-waves high lateral leads, baseline artifact. When compared to EKG done in May of 2024 there are no significant changes. - continue home medications: Metoprolol tele (4) Stage 3a chronic kidney disease: Code(s): N18.31 - Chronic kidney disease, stage 3a Status: Chronic Assessment and Plan: - creatinine 1.52, BUN 25, GFR 44 - baseline creatinine: 1.5 - 2.0 - follows with nephrology at [place] - trend renal function - trend electrolytes, correct as needed iv hydration (5) Essential (primary) hypertension: Code(s): I10 - Essential (primary) hypertension Status: Chronic Assessment and Plan: - chronic, currently 119/71 - continue home medications: Amlodipine - monitor Plan - Will need outpatient follow-up on an indeterminate 1.8 cm low-density lesion in the right lobe of the liver that was seen on CT on 06/18. A liver mass CT or MRI is recommended. - son describing periods of apnea and altered breathing wall sleep, will check ApneaLink Diet: Heart healthy GI Prophylaxis: n/a DVT Prophylaxis: Lovenox IV fluids: None Lines/Tubes: Peripheral IV Code Status: Full code Time Spent With Patient Time with patient: 25 - 35 minutes Subjective Date/time seen: 06/19/25 12:19 Interval history: 85 y/o M with PMH of anxiety, depression, aortic aneurysm, renal insufficiency, hypertension, and suspected dementia presents here with shortness of breath. Initial VS at presentation: 97.6? F, HR 76, R 20, 102/86, and 97% on RA. ED workup showed: WBC 13.3, hemoglobin 13.8, ABG showed a CO2 of 23.6, creatinine 1.52 and GFR 44, glucose 176, lactic 1.6, BNP 869 (normal for age), troponin negative x3, TSH within normal limits, and UA showed 1+ protein otherwise unremarkable. Viral PCR negative. CXR showed small opacities in the mid and lower lung zones. Chest/abdomen/pelvis CTA showed subtle bony irregularity of the superior endplate of the T12 vertebral body which may be due to compression fracture of indeterminate age, no PE, moderate size patchy and reticular opacities scattered throughout the lungs most prominent in the lower lungs, diverticulosis with a small amount of surrounding fat stranding (mild acute diverticulitis is possible the appropriate clinical setting), indeterminate 1.8 cm low-density lesion in the right lower lobe of liver, abdominal aorta is ectatic, infrarenal abdominal aortic aneurysm measuring 3.5 x 2.5 cm, moderate amount of atherosclerosis disease in the abdominal aorta. Pt is seen and examined. Continue IV antibiotics. he is alert, lt upper arm a bit weak. he recently was at [facility] for 21 days and had extensive workup for fall. echo was done. multiple labs and test. he was refereed to neurology but not yet seen one. Review of Systems Review of Systems: All systems reviewed & are unremarkable except as noted in HPI and below Exam Const: General: comfortable and no acute distress Other: , male, elderly, obese body habitus, chronically ill-appearing HENMT: Face/Nose/Sinus: Normal nares present Mouth: Yes moist mucous membranes Eyes: General: appearance normal, both eyes and all related structures Sclera: sclerae normal Pupils: Equal, round and reactive pupils present EOM: EOMs intact bilaterally Resp: Other: Bibasilar crackles, no wheezing, mild tachypnea without accessory muscle use. Witnessed apnea while falling asleep Cardio: Rate: regular rate Rhythm: regular rhythm Other: S1-S2 present without murmur, rub, ectopy GI: Other: Abdomen soft, rounded, nontender. Normoactive bowel sounds in all quadrants. Skin: General skin exam: normal color and no rashes or lesions noted Wounds: no wounds Neuro: Cranial nerves: Yes Equal, round and reactive pupils present Speech: normal speech Motor exam (neuro): 5/5 motor strength present throughout Sensory Exam: normal sensation Other: A&O x4 present, very somnolent and falls asleep easily during exam however also awakens easily Extrem: General: normal to inspection Psych: Mental Status: mental status grossly normal Affect: normal affect Other: Fair insight and judgment, pleasant Objective Data Vital Signs Vital Signs: Vital Signs - 24 hr 06/18/25 14:00 06/18/25 14:06 06/18/25 15:30 Temperature Pulse Rate 69 75 Respiratory Rate 14 20 Blood Pressure 103/89 133/89 Pulse Oximetry 97 98 100 Oxygen Delivery Room Air 06/18/25 17:00 06/18/25 17:45 06/18/25 19:10 Temperature 98.5 F Pulse Rate 77 79 73 Respiratory Rate 22 H 20 18 Blood Pressure 114/96 H 144/99 H 119/71 Pulse Oximetry 96 97 95 Oxygen Delivery 06/18/25 21:51 06/19/25 06:00 06/19/25 08:30 Temperature 97.5 F L 97.6 F Pulse Rate 69 65 65 Respiratory Rate 16 16 16 Blood Pressure 128/74 162/75 H Pulse Oximetry 97 98 95 Oxygen Delivery Room Air 06/19/25 09:41 06/19/25 09:51 Temperature Pulse Rate 65 Respiratory Rate Blood Pressure Pulse Oximetry 95 Oxygen Delivery Room Air Intake/Output Intake/Output: Intake & Output 06/16/25 06/17/25 06/18/25 06/19/25 23:59 23:59 23:59 23:59 Intake Total 1300 250 Output Total 150 Balance 1300 100 Meds/Results Medications: Active Medications Generic Name Dose Route Start Last Admin Trade Name Talibq PRN Reason Stop Dose Admin Acetaminophen 650 mg 06/18/25 19:23 Acetaminophen 325 Mg Tablet PO Q6H PRN Mild Pain (1-3) or Fever Albuterol/Ipratropium 3 ml 06/18/25 19:23 Ipratropium 0.5 Mg/Albuterol Sulfate 2.5 Mg Ampul.Neb 3 Ml INHALATION Q6HRT PRN Shortness Of Breath Or Wheezing Allopurinol 100 mg 06/19/25 08:00 06/19/25 09:52 Allopurinol 100 Mg Tablet PO 100 mg DAILY@0800 TORY Administration Allopurinol 300 mg 06/19/25 08:00 06/19/25 09:51 Allopurinol 300 Mg Tablet PO 300 mg DAILY@0800 TORY Administration Amlodipine Besylate 2.5 mg 06/19/25 09:00 06/19/25 09:51 Amlodipine Besylate 2.5 Mg Tablet PO 2.5 mg DAILY TORY Administration Clotrimazole 1 applic 06/19/25 09:00 06/19/25 09:56 Betamethasone/Clotrimazole Cream 15 Gm Tube TOPICAL 1 applic BID TORY Administration Donepezil HCl 10 mg 06/18/25 23:45 06/19/25 00:01 Donepezil Hcl 10 Mg Tablet PO 10 mg HS TORY Administration Enoxaparin Sodium 40 mg 06/19/25 09:00 06/19/25 09:55 Enoxaparin 40 Mg/0.4 Ml Syringe SUB-Q 40 mg DAILY [facility] Administration Furosemide 20 mg 06/19/25 09:00 06/19/25 09:41 Furosemide 20 Mg Tablet PO 20 mg QAM [facility] Administration Ceftriaxone Sodium 1 gm/ 50 mls @ 100 mls/hr 06/18/25 17:00 06/18/25 17:30 Sodium Chloride IVPB Not Given Q24H [facility]ORY Azithromycin 500 mg/ Sodium 250 mls @ 250 mls/hr 06/19/25 18:00 Chloride IVPB 06/22/25 18:59 Q24H TORY Metronidazole 500 mg in 100 mls @ 100 mls/hr 06/18/25 22:00 06/19/25 06:54 Flagyl 500 Mg/Iso Soln 100 Ml IVPB Infused Q8H [facility] Infusion Lidocaine 1 patch 06/19/25 09:00 06/19/25 09:55 Lidocaine 5% Patch TRANSDERM 1 patch DAILY [facility] Administration Metoprolol Succinate 50 mg 06/19/25 09:00 06/19/25 09:41 Metoprolol Succinate Ext Rel 50 Mg Tabcr PO 50 mg DAILY [facility] Administration Olmesartan 40 mg 06/19/25 09:00 06/19/25 09:41 Olmesartan Medoxomil 20 Mg Tablet PO 40 mg QAM [facility] Administration Prednisone 2.5 mg 06/19/25 09:00 06/19/25 09:55 Prednisone 2.5 Mg Tablet PO 2.5 mg DAILY [facility] Administration Pregabalin 50 mg 06/19/25 09:00 06/19/25 09:51 Pregabalin (*Crx) 50 Mg Capsule PO 50 mg Q12HR [facility] Administration Tramadol HCl 50 mg 06/18/25 23:37 Tramadol Hcl (*Crx) 50 Mg Tablet PO QID PRN pain 4-10 Radiology Results: ITS Impressions Chest X-Ray 06/18/25 12:12 IMPRESSION: 1. Small opacities in the mid and lower lungs. Differential includes atelectasis/scarring or infiltrates. 2. Left-sided central venous catheter with its tip at the junction between the left brachiocephalic vein and superior vena cava. Chest/Abdomen/Pelvis CTA 06/18/25 13:24 IMPRESSION: 1. Subtle bony irregularity of the superior endplate of the T12 vertebral body which may be due to a compression fracture of indeterminate age. Correlate for point tenderness. Consider an MRI of the thoracic spine for further assessment. The finding is new as compared to the study from 2017. 2. No pulmonary embolism identified. 3. Moderate sized patchy and reticular opacities scattered throughout both lungs most prominent in the lower lungs. The findings are new as compared to the chest CT from 06/05/2017. Differential includes but is not limited to edema or pneumonia. Follow-up is recommended. 4.Diverticulosis in the descending and sigmoid colon with a small amount of surrounding fat stranding. Mild acute diverticulitis is possible in the appropriate clinical setting. 5.Indeterminate 1.8 cm low-density lesion in the right lobe of the liver. A liver mass CT or MRI is recommended. 6.Abdominal aorta is ectatic. Infrarenal abdominal aortic aneurysm measuring 3.5 x 2.5 cm. Moderate amount of atherosclerosis disease in the abdominal aorta. Labs Labs: Laboratory Results - last 24 hr 06/18/25 06/18/25 06/18/25 11:53 14:24 14:25 WBC RBC Hgb Hct MCV MCH MCHC RDW Plt Count MPV Immature Gran % (Auto) Neut % (Auto) Lymph % (Auto) [place] % (Auto) Eos % (Auto) Baso % (Auto) Lymph # (Auto) [place] # (Auto) Eos # (Auto) Baso # (Auto) Abs Immat Gran (auto) Absolute Neuts (auto) Absolute Nucleated RBC Nucleated RBC % PT 14.6 INR 1.1 APTT 30.9 Puncture Site Right radial ABG pH 7.486 H ABG pCO2 23.6 L* ABG pO2 78.6 L ABG PO2/FiO2 Ratio 3.74 ABG HCO3 17.4 L ABG O2 Saturation 96.7 ABG O2 Content 19.5 ABG Base Excess -3.9 A-a Gradient 42.9 Oxyhemoglobin 95.3 Total Hemoglobin 14.5 O2 Delivery Device Not Reportable O2 Liters/Min Not Reportable FiO2 21 Sodium Potassium Chloride Carbon Dioxide Anion Gap BUN Creatinine Estim Creat Clear Calc Estimated GFR Glucose Lactic Acid Calcium Magnesium Troponin I Lipase TSH (Reflex) 3.350 Urine Color Urine Appearance Urine pH Ur Specific [place] Urine Protein Urine Glucose (UA) Urine Ketones Ur Blood (Man) Urine Nitrate Urine Bilirubin Urine Urobilinogen Leukocyte Esterase Rfl Urine RBC Urine WBC Ur Squamous Epith Cells Urine Bacteria Urine Casts Nasal MRSA (PCR) Salicylates < 1.0 L Influenza A (RT-PCR) Negative Influenza B (RT-PCR) Negative RSV (RT-PCR) Negative SARS-CoV-2 RNA (RT-PCR) Negative 06/18/25 06/18/25 06/18/25 14:26 15:02 15:06 WBC RBC Hgb Hct MCV MCH MCHC RDW Plt Count MPV Immature Gran % (Auto) Neut % (Auto) Lymph % (Auto) [place] % (Auto) Eos % (Auto) Baso % (Auto) Lymph # (Auto) [place] # (Auto) Eos # (Auto) Baso # (Auto) Abs Immat Gran (auto) Absolute Neuts (auto) Absolute Nucleated RBC Nucleated RBC % PT INR APTT Puncture Site ABG pH ABG pCO2 ABG pO2 ABG PO2/FiO2 Ratio ABG HCO3 ABG O2 Saturation ABG O2 Content ABG Base Excess A-a Gradient Oxyhemoglobin Total Hemoglobin O2 Delivery Device O2 Liters/Min FiO2 Sodium Potassium Chloride Carbon Dioxide Anion Gap BUN Creatinine Estim Creat Clear Calc Estimated GFR Glucose Lactic Acid 1.6 Calcium Magnesium 1.9 Troponin I < 0.012 Lipase 87 TSH (Reflex) Urine Color Yellow Urine Appearance Clear Urine pH 5.5 Ur Specific [place] 1.016 Urine Protein 1+ H Urine Glucose (UA) Negative Urine Ketones Negative Ur Blood (Man) Negative Urine Nitrate Negative Urine Bilirubin Negative Urine Urobilinogen 0.2 Leukocyte Esterase Rfl Negative Urine RBC 0-2 Urine WBC 0-5 Ur Squamous Epith Cells None seen Urine Bacteria None seen Urine Casts 3-5 Nasal MRSA (PCR) Salicylates Influenza A (RT-PCR) Influenza B (RT-PCR) RSV (RT-PCR) SARS-CoV-2 RNA (RT-PCR) 06/18/25 06/18/25 06/19/25 18:44 22:31 06:42 WBC 8.7 RBC 4.29 L Hgb 12.6 L Hct 39.1 L MCV 91.1 MCH 29.4 MCHC 32.2 RDW 15.8 H Plt Count 175 MPV 10.2 Immature Gran % (Auto) 1.0 H Neut % (Auto) 79.8 H Lymph % (Auto) 6.5 L [place] % (Auto) 9.7 H Eos % (Auto) 2.1 Baso % (Auto) 0.9 Lymph # (Auto) 0.57 L [place] # (Auto) 0.9 H Eos # (Auto) 0.2 Baso # (Auto) 0.1 Abs Immat Gran (auto) 0.09 H Absolute Neuts (auto) 7.0 H Absolute Nucleated RBC 0.000 Nucleated RBC % 0.0 PT INR APTT Puncture Site ABG pH ABG pCO2 ABG pO2 ABG PO2/FiO2 Ratio ABG HCO3 ABG O2 Saturation ABG O2 Content ABG Base Excess A-a Gradient Oxyhemoglobin Total Hemoglobin O2 Delivery Device O2 Liters/Min FiO2 Sodium 138 Potassium 3.6 Chloride 110 H Carbon Dioxide 21 L Anion Gap 7 BUN 23 H Creatinine 1.41 H Estim Creat Clear Calc 36 Estimated GFR 48 L Glucose 88 Lactic Acid Calcium 9.0 Magnesium Troponin I < 0.012 Lipase TSH (Reflex) Urine Color Urine Appearance Urine pH Ur Specific [place] Urine Protein Urine Glucose (UA) Urine Ketones Ur Blood (Man) Urine Nitrate Urine Bilirubin Urine Urobilinogen Leukocyte Esterase Rfl Urine RBC Urine WBC Ur Squamous Epith Cells Urine Bacteria Urine Casts Nasal MRSA (PCR) Not detected Salicylates Influenza A (RT-PCR) Influenza B (RT-PCR) RSV (RT-PCR) SARS-CoV-2 RNA (RT-PCR) Quality VTE Prophylaxis VTE prophylaxis: pharmacologic ordered
[2025-06-19 14:00] VITALS: BP 111/77; PULSE 65; RESP 18; TEMP 36.4; O2SAT 97
[2025-06-19] MEDS: cefTRIAXone 1 GM in SODIUM CHLORIDE 0.9% IV 50 ML 100 ML IVPB (17:21)
[2025-06-19] MEDS: AZITHROMYCIN 250 MG TABLET 500 MG PO (18:27)
[2025-06-19] MEDS: traMADol HCL (*CRX) 50 MG TABLET PO (21:59)
[2025-06-19 22:00] VITALS: BP 143/80; PULSE 77; RESP 16; TEMP 37.2; O2SAT 95
[2025-06-20 05:28] VITALS: BP 114/61; PULSE 66; RESP 18; TEMP 36.4; O2SAT 95
[2025-06-20 10:07] VITALS: PULSE 66
[2025-06-20] MEDS: METOPROLOL SUCCINATE EXT REL 50 MG TABCR PO (10:07)
[2025-06-20] MEDS: FUROSEMIDE 20 MG TABLET PO (10:07)
[2025-06-20] MEDS: PREGABALIN (*CRX) 50 MG CAPSULE PO ×2 (10:08→21:11)
[2025-06-20] MEDS: OLMESARTAN MEDOXOMIL 20 MG TABLET 40 MG PO (10:08)
[2025-06-20] MEDS: ENOXAPARIN 40 MG/0.4 ML SYRINGE SUB-Q (10:08)
[2025-06-20 14:00] VITALS: BP 92/60; PULSE 63; RESP 18; TEMP 36.6; O2SAT 98
--- NOTE | 2025-06-20 14:36 | P.CONNEU_ITS ---
Consult date: 06/20/25 HPI: Casey Sheriff is a 85 year old male Admitted to the hospital with the complaints of difficulties in breathing patient was just recently discharged from the [facility] tumor ED in [facility] after a prolonged hospitalization. Reportedly was becoming progressively more weak and confused. At the [place] will age he was found unresponsive with difficulties in breathing and as per the patient's son reportedly he has sleep apnea. Patient himself has ongoing dementia and was unable to recall any of these events. At the time of admission to the ER patient has been receiving allopurinol 100mg daily, and 300mg daily, donepezil 10mg at night, furosemide 20mg daily, and tramadol 50mg q.i.d. on p.r.n. basis. Patient has ongoing history of atrial fibrillation, aortic aneurysm, renal insufficiency, gout with hyperuricemia, anxiety with depression. He is never a smoker, with no alcohol intake, on initial exam in the emergency room he was documented to have no focal neurological deficit but awake and alert oriented times 1 to 2. His vital signs were normal, CBC was normal, BMP was normal with BUN 23 and creatinine 1.41 and mast scan was normal with negative screening for the influenza a, influenza B, RSV, and SARs COVID, initial ABGs with pH of 7.48 pCO2 23.6 and PO2 78.6, x-ray chest with small opacities, and CTA of the chest and abdomen without any aortic aneurysm, moderate-size patchy reticular opacities throughout the lungs but no pneumothorax or effusion, neuro consult mainly for ongoing dementia receiving donepezil 10mg at night in addition to other medications. Review of Systems 2 Review of Systems: All systems reviewed & are unremarkable except as noted in HPI and below PMFSH Past Medical History Medical History Renal insufficiency Atrial fibrillation Hyperlipidemia Anxiety and depression Aortic aneurysm Gout Hyperuricemia History of bruising easily Hypertension Osteoarthritis of left hip Bone infection Abscess Unsteadiness Vertigo Surgical History Surgical History History of tonsillectomy History of tooth extraction History of total right knee replacement (~2020) History of hip replacement (~2005) Social History Social History Social History: 05/12/25 very confident with medical forms Smoking status: Never smoker Alcohol intake: never Substance use: never Substance use type: does not use Do You Feel Safe in your Home?: Yes Lack of Transportation: No Lack of Food: Never True Current Housing: I Have Housing Concerned About Future Housing: No Difficulty Paying Gas/Electric Bills: No Difficulty Paying for Meds: No Currently Unemployed: No Education: Bachelor's Degree Difficulty w/ Childcare or Family Care: No Living arrangements: alone Occupation/Education: retired Gender identity (if verbalized by the patient): Male Spiritual care concerns: No Agree to blood products: Yes Meds Home Medications and Allergies Home Medications ?Medication ?Instructions ?Recorded ?Confirmed ?Type allopurinol 100 mg tablet 100 mg PO DAILY 11/27/24 06/18/25 History allopurinol 300 mg tablet 300 mg PO DAILY 11/27/24 06/18/25 History amlodipine 2.5 mg tablet 2.5 mg PO DAILY #90 tabs 01/19/25 06/18/25 Rx olmesartan 40 mg tablet 40 mg PO DAILY #90 tabs 01/19/25 06/18/25 Rx clotrimazole-betamethasone 1 1 applic topical BID Groin rash 04/20/25 06/18/25 Rx %-0.05 % topical cream #45 grams metoprolol succinate 50 mg 50 mg PO DAILY #90 tabs 05/04/25 06/18/25 Rx tablet,extended release 24 hr pregabalin 50 mg capsule (Lyrica) 50 mg PO BID #180 caps 05/18/25 06/18/25 Rx prednisone 2.5 mg tablet 2.5 mg PO DAILY #30 tabs 05/26/25 06/18/25 Rx donepezil 10 mg tablet 10 mg PO HS 06/18/25 06/18/25 History furosemide 20 mg tablet (Lasix) 20 mg PO QAM edema 06/18/25 06/18/25 History lidocaine 4 % topical patch 1 patch topical DAILY 06/18/25 06/18/25 History tramadol 50 mg tablet 50 mg PO QID PRN pain 06/18/25 06/18/25 History Allergies Allergy/AdvReac Type Severity Reaction Status Date / Time doxycycline AdvReac Intermediate Rash Verified 05/15/25 08:05 Vital Signs Vital Signs - 24 hr 06/19/25 22:00 06/20/25 05:28 06/20/25 08:00 Temperature 37.2 C 36.4 C L Pulse Rate 77 66 Respiratory Rate 16 18 Blood Pressure 143/80 H 114/61 Pulse Oximetry 95 95 Oxygen Delivery Room Air 06/20/25 10:07 Temperature Pulse Rate 66 Respiratory Rate Blood Pressure Pulse Oximetry Oxygen Delivery Results Labs 06/19/25 06:42 06/19/25 06:42
--- NOTE | 2025-06-20 15:09 | PM.IMPN ---
Progress Note: A&P Assessment and Plan (1) PNA (pneumonia): Qualifiers: Laterality: bilateral Lung location: unspecified part of lung Pneumonia type: due to unspecified organism Qualified Code(s): J18.9 - Pneumonia, unspecified organism Code(s): J18.9 - Pneumonia, unspecified organism Status: Acute Assessment and Plan: - CXR: 1. Small opacities in the mid and lower lungs. Differential includes atelectasis/scarring or infiltrates. 2. Left-sided central venous catheter with its tip at the junction between the left brachiocephalic vein and superior vena cava. - CTA chest/abd/pelvis: 1. Subtle bony irregularity of the superior endplate of the T12 vertebral body which may be due to a compression fracture of indeterminate age. Correlate for point tenderness. Consider an MRI of the thoracic spine for further assessment. The finding is new as compared to the study from 2017. 2. No pulmonary embolism identified. 3. Moderate sized patchy and reticular opacities scattered throughout both lungs most prominent in the lower lungs. The findings are new as compared to the chest CT from 06/05/2017. Differential includes but is not limited to edema or pneumonia. Follow-up is recommended. 4.Diverticulosis in the descending and sigmoid colon with a small amount of surrounding fat stranding. Mild acute diverticulitis is possible in the appropriate clinical setting. 5.Indeterminate 1.8 cm low-density lesion in the right lobe of the liver. A liver mass CT or MRI is recommended. 6.Abdominal aorta is ectatic. Infrarenal abdominal aortic aneurysm measuring 3.5 x 2.5 cm. Moderate amount of atherosclerosis disease in the abdominal aorta. - started on ceftriaxone and azithromycin, adding Flagyl due to possible concerns of early diverticulitis. Currently asymptomatic beyond generalized weakness and somnolence. - check MRSA PCR and sputum culture if obtainable - supportive care: Tessalon Perles p.r.n., Mucinex tory, DuoNebs p.r.n., Tylenol p.r.n. - no current supplemental O2 requirement Given patient's general appearance, increased respiratory effort, and somnolence he was admitted for observation and initiation of broad-spectrum IV antibiotics. downgrade to PO andreea osborne antibitoics IS ambulation up to chair tid with meals remains on ra (2) Failure to thrive: Qualifiers: Failure to thrive age range: in adult Qualified Code(s): R62.7 - Adult failure to thrive Status: Acute Assessment and Plan: - has had worsening gait instability, multiple falls, and physical deconditioning since October of 2024 (last 6 months). Was worked up at [facility] in [place] at the end of May, no acute findings. Currently going through rehab at [facility]. - PT/OT eval and treatment (3) Atrial fibrillation: Qualifiers: Atrial fibrillation type: unspecified Qualified Code(s): I48.91 - Unspecified atrial fibrillation Code(s): I48.91 - Unspecified atrial fibrillation Status: Chronic Assessment and Plan: - initial EKG showed sinus rhythm, left ventricular hypertrophy with ST-T change, minimal Q-waves high lateral leads, baseline artifact. When compared to EKG done in May of 2024 there are no significant changes. - continue home medications: Metoprolol tele (4) Stage 3a chronic kidney disease: Code(s): N18.31 - Chronic kidney disease, stage 3a Status: Chronic Assessment and Plan: - creatinine 1.52, BUN 25, GFR 44 - baseline creatinine: 1.5 - 2.0 - follows with nephrology at [place] - trend renal function - trend electrolytes, correct as needed iv hydration \trend labs (5) Essential (primary) hypertension: Code(s): I10 - Essential (primary) hypertension Status: Chronic Assessment and Plan: - chronic, currently 119/71 - continue home medications: Amlodipine - monitor bp this afternoon a bit soft-will hold am dose if systolic remains under 100 (6) Unsteady gait: Code(s): R26.81 - Unsteadiness on feet Status: Acute Assessment and Plan: requested records from [place] to see what imaging was done neurology consulted pt/ot Plan - Will need outpatient follow-up on an indeterminate 1.8 cm low-density lesion in the right lobe of the liver that was seen on CT on 06/18. A liver mass CT or MRI is recommended. - son describing periods of apnea and altered breathing wall sleep, will check ApneaLink Diet: Heart healthy GI Prophylaxis: n/a DVT Prophylaxis: Lovenox IV fluids: None Lines/Tubes: Peripheral IV Code Status: Full code Time Spent With Patient Time with patient: 25 - 35 minutes Subjective Date/time seen: 06/20/25 15:09 Interval history: 85 y/o M with PMH of anxiety, depression, aortic aneurysm, renal insufficiency, hypertension, and suspected dementia presents here with shortness of breath. Pt is seen and examined today. Continue IV antibiotics. he is alert, PT/OT saw him yesterday. neurology consulted. family at the bedside, updated. Review of Systems Review of Systems: All systems reviewed & are unremarkable except as noted in HPI and below Exam Const: General: comfortable and no acute distress Other: , male, elderly, obese body habitus, chronically ill-appearing HENMT: Face/Nose/Sinus: Normal nares present Mouth: Yes moist mucous membranes Eyes: General: appearance normal, both eyes and all related structures Sclera: sclerae normal Pupils: Equal, round and reactive pupils present EOM: EOMs intact bilaterally Resp: Other: Bibasilar crackles, no wheezing, mild tachypnea without accessory muscle use. Witnessed apnea while falling asleep Cardio: Rate: regular rate Rhythm: regular rhythm Other: S1-S2 present without murmur, rub, ectopy GI: Other: Abdomen soft, rounded, nontender. Normoactive bowel sounds in all quadrants. Skin: General skin exam: normal color and no rashes or lesions noted Wounds: no wounds Neuro: Cranial nerves: Yes Equal, round and reactive pupils present Speech: normal speech Motor exam (neuro): 5/5 motor strength present throughout Sensory Exam: normal sensation Other: A&O x4 present, very somnolent and falls asleep easily during exam however also awakens easily Extrem: General: normal to inspection Psych: Mental Status: mental status grossly normal Affect: normal affect Other: Fair insight and judgment, pleasant Objective Data Vital Signs Vital Signs: Vital Signs - 24 hr 06/19/25 22:00 06/20/25 05:28 06/20/25 08:00 Temperature 99.0 F 97.5 F L Pulse Rate 77 66 Respiratory Rate 16 18 Blood Pressure 143/80 H 114/61 Pulse Oximetry 95 95 Oxygen Delivery Room Air 06/20/25 10:07 Temperature Pulse Rate 66 Respiratory Rate Blood Pressure Pulse Oximetry Oxygen Delivery Intake/Output Intake/Output: Intake & Output 06/17/25 06/18/25 06/19/25 06/20/25 23:59 23:59 23:59 23:59 Intake Total 1300 970 640 Output Total 750 550 Balance 1300 220 90 Meds/Results Medications: Active Medications Generic Name Dose Route Start Last Admin Trade Name Freq PRN Reason Stop Dose Admin Acetaminophen 650 mg 06/18/25 19:23 Acetaminophen 325 Mg Tablet PO Q6H PRN Mild Pain (1-3) or Fever Albuterol/Ipratropium 3 ml 06/18/25 19:23 Ipratropium 0.5 Mg/Albuterol Sulfate 2.5 Mg Ampul.Neb 3 Ml INHALATION Q6HRT PRN Shortness Of Breath Or Wheezing Allopurinol 100 mg 06/19/25 08:00 06/20/25 10:09 Allopurinol 100 Mg Tablet PO 100 mg DAILY@0800 TORY Administration Allopurinol 300 mg 06/19/25 08:00 06/20/25 10:07 Allopurinol 300 Mg Tablet PO 300 mg DAILY@0800 OTRY Administration Amlodipine Besylate 2.5 mg 06/19/25 09:00 06/20/25 10:05 Amlodipine Besylate 2.5 Mg Tablet PO 2.5 mg DAILY TORY Administration Azithromycin 500 mg 06/19/25 19:00 06/19/25 18:27 Azithromycin 250 Mg Tablet PO 06/22/25 21:01 500 mg QHS TORY Administration Clotrimazole 1 applic 06/19/25 09:00 06/20/25 14:09 Betamethasone/Clotrimazole Cream 15 Gm Tube TOPICAL 1 applic BID TORY Administration Donepezil HCl 10 mg 06/18/25 23:45 06/19/25 21:59 Donepezil Hcl 10 Mg Tablet PO 10 mg HS TORY Administration Enoxaparin Sodium 40 mg 06/19/25 09:00 06/20/25 10:08 Enoxaparin 40 Mg/0.4 Ml Syringe SUB-Q 40 mg DAILY TORY Administration Furosemide 20 mg 06/19/25 09:00 06/20/25 10:07 Furosemide 20 Mg Tablet PO 20 mg QAM TORY Administration Ceftriaxone Sodium 1 gm/ 50 mls @ 100 mls/hr 06/18/25 17:00 06/19/25 17:21 Sodium Chloride IVPB 100 mls/hr Q24H TORY Administration Lidocaine 1 patch 06/19/25 09:00 06/19/25 09:55 Lidocaine 5% Patch TRANSDERM 1 patch DAILY TORY Administration Metoprolol Succinate 50 mg 06/19/25 09:00 06/20/25 10:07 Metoprolol Succinate Ext Rel 50 Mg Tabcr PO 50 mg DAILY TORY Administration Metronidazole 500 mg 06/19/25 22:00 06/20/25 14:10 Metronidazole 500 Mg Tablet PO 500 mg Q8HR TORY Administration Olmesartan 40 mg 06/19/25 09:00 06/20/25 10:08 Olmesartan Medoxomil 20 Mg Tablet PO 40 mg QAM TORY Administration Prednisone 2.5 mg 06/19/25 09:00 06/20/25 10:07 Prednisone 2.5 Mg Tablet PO 2.5 mg DAILY TORY Administration Pregabalin 50 mg 06/19/25 09:00 06/20/25 10:08 Pregabalin (*Crx) 50 Mg Capsule PO 50 mg Q12HR TORY Administration Tramadol HCl 50 mg 06/18/25 23:37 06/19/25 21:59 Tramadol Hcl (*Crx) 50 Mg Tablet PO 50 mg QID PRN Administration pain 4-10 Radiology Results: ITS Impressions Chest X-Ray 06/18/25 12:12 IMPRESSION: 1. Small opacities in the mid and lower lungs. Differential includes atelectasis/scarring or infiltrates. 2. Left-sided central venous catheter with its tip at the junction between the left brachiocephalic vein and superior vena cava. Chest/Abdomen/Pelvis CTA 06/18/25 13:24 IMPRESSION: 1. Subtle bony irregularity of the superior endplate of the T12 vertebral body which may be due to a compression fracture of indeterminate age. Correlate for point tenderness. Consider an MRI of the thoracic spine for further assessment. The finding is new as compared to the study from 2017. 2. No pulmonary embolism identified. 3. Moderate sized patchy and reticular opacities scattered throughout both lungs most prominent in the lower lungs. The findings are new as compared to the chest CT from 06/05/2017. Differential includes but is not limited to edema or pneumonia. Follow-up is recommended. 4.Diverticulosis in the descending and sigmoid colon with a small amount of surrounding fat stranding. Mild acute diverticulitis is possible in the appropriate clinical setting. 5.Indeterminate 1.8 cm low-density lesion in the right lobe of the liver. A liver mass CT or MRI is recommended. 6.Abdominal aorta is ectatic. Infrarenal abdominal aortic aneurysm measuring 3.5 x 2.5 cm. Moderate amount of atherosclerosis disease in the abdominal aorta. Quality VTE Prophylaxis VTE prophylaxis: pharmacologic ordered
--- NOTE | 2025-06-20 16:01 | WPDNEURCNPN ---
Assessment and Plan Assessment and plan (1) Unsteady gait: Code(s): R26.81 - Unsteadiness on feet Status: Acute (2) Neuropathy: Code(s): G62.9 - Polyneuropathy, unspecified Status: Acute (3) Atrial fibrillation: Qualifiers: Atrial fibrillation type: unspecified Qualified Code(s): I48.91 - Unspecified atrial fibrillation Code(s): I48.91 - Unspecified atrial fibrillation Status: Chronic (4) Aortic aneurysm: Code(s): I71.9 - Aortic aneurysm of unspecified site, without rupture Status: Acute Plan 1. Ongoing dementia for which patient is receiving the medication as mention particularly donepezil 10mg at night 2. Balance difficulty with history of cerebellar stroke on the previous MRIs. 3. Patient was advised to have repeat MRI to make sure there is no recurrence of stroke in the posterior fossa in addition he was advised that he could very well have the neuropathy on ongoing basis for which we will obtain the B12 and folate level, consider the nerve conduction studies as outpatient and once the MRI report is available further discussion will be made with him. patient was found to be unresponsive will obtain the EEG to rule out the possibility of unwitnessed seizure. will obtain the EEG, and the old MRI report is available which revealed old infarct in right cerebellum and right caudate nucleus. If any further questions arise please do not hesitate to contact me thank you Consult date: 06/20/25 HPI: Casey Sheriff is a 85 year old male Has been admitted to the hospital with the complaints of shortness of breath, reportedly he was just discharged from [facility] yesterday tumor ED and will age after a prolonged hospitalization he was admitted after becoming progressively more weak and confused. As per the family they did not find a cause of this progressive weakness and he is now bedbound. He was discharged to [facility] adjust a day and the staff there sent him in today saying that they found him unresponsive and short of breath. As per the patient's son the patient has sleep apnea he also very difficult to wake at times. Patient himself has dementia and does not recall any of these events the patient's cell phase he has some shortness of breath but he is a poor historian. At the time of admission his medications included allopurinol 100mg daily, donepezil 10mg at night, furosemide 20mg daily, and tramadol 50mg q.i.d. on p.r.n. basis. He is reportedly allergic to doxycycline. He has ongoing history of 1. Renal insufficiency 2. Atrial fibrillation 3. Hyper lipidemia 4. Aortic aneurysm 5. Gout 6. Osteoarthritis of left hip and 7. Unsteadiness. He has also undergone total right knee replacement and hip replacement. He is never a smoker, never alcohol intake or, on initial evaluation in the emergency room he was awake alert oriented x2 otherwise is generally unremarkable examination. His vital signs were normal, CBC was, BMP with a BUN of 23 and creatinine of 1.41 and mast scan was negative also screening for the influenza a B RSV and SARs COVID negative his ABG revealed pH 7.4 CO2 23.[address] documented moderate size patchy reticular opacities throughout the lungs in addition diverticulosis in the descending and sigmoid colon and a low-density lesion in the right lobe of the liver ectatic abdominal aorta. His general decline had been going on since October of 2024 he was admitted on 05/29 discharged on 06/02 with the diagnosis of possible Alzheimer's dementia MRI of the brain at that time was negative he has had gait instability with multiple falls Review of Systems Review of Systems: All systems reviewed & are unremarkable except as noted in HPI and below PMFSH Past Medical History Medical History Renal insufficiency Atrial fibrillation Hyperlipidemia Anxiety and depression Aortic aneurysm Gout Hyperuricemia History of bruising easily Hypertension Osteoarthritis of left hip Bone infection Abscess Unsteadiness Vertigo Surgical History Surgical History History of tonsillectomy History of tooth extraction History of total right knee replacement (~2020) History of hip replacement (~2005) Social History Social History Social History: 05/12/25 very confident with medical forms Smoking status: Never smoker Alcohol intake: never Substance use: never Substance use type: does not use Do You Feel Safe in your Home?: Yes Lack of Transportation: No Lack of Food: Never True Current Housing: I Have Housing Concerned About Future Housing: No Difficulty Paying Gas/Electric Bills: No Difficulty Paying for Meds: No Currently Unemployed: No Education: Bachelor's Degree Difficulty w/ Childcare or Family Care: No Living arrangements: alone Occupation/Education: retired Gender identity (if verbalized by the patient): Male Spiritual care concerns: No Agree to blood products: Yes Meds Home Medications and Allergies Home Medications ?Medication ?Instructions ?Recorded ?Confirmed ?Type allopurinol 100 mg tablet 100 mg PO DAILY 11/27/24 06/18/25 History allopurinol 300 mg tablet 300 mg PO DAILY 11/27/24 06/18/25 History amlodipine 2.5 mg tablet 2.5 mg PO DAILY #90 tabs 01/19/25 06/18/25 Rx olmesartan 40 mg tablet 40 mg PO DAILY #90 tabs 01/19/25 06/18/25 Rx clotrimazole-betamethasone 1 1 applic topical BID Groin rash 04/20/25 06/18/25 Rx %-0.05 % topical cream #45 grams metoprolol succinate 50 mg 50 mg PO DAILY #90 tabs 05/04/25 06/18/25 Rx tablet,extended release 24 hr pregabalin 50 mg capsule (Lyrica) 50 mg PO BID #180 caps 05/18/25 06/18/25 Rx prednisone 2.5 mg tablet 2.5 mg PO DAILY #30 tabs 05/26/25 06/18/25 Rx donepezil 10 mg tablet 10 mg PO HS 06/18/25 06/18/25 History furosemide 20 mg tablet (Lasix) 20 mg PO QAM edema 06/18/25 06/18/25 History lidocaine 4 % topical patch 1 patch topical DAILY 06/18/25 06/18/25 History tramadol 50 mg tablet 50 mg PO QID PRN pain 06/18/25 06/18/25 History Allergies Allergy/AdvReac Type Severity Reaction Status Date / Time doxycycline AdvReac Intermediate Rash Verified 05/15/25 08:05 Vital Signs Vital Signs - 24 hr 06/19/25 22:00 06/20/25 05:28 06/20/25 08:00 Temperature 37.2 C 36.4 C L Pulse Rate 77 66 Respiratory Rate 16 18 Blood Pressure 143/80 H 114/61 Pulse Oximetry 95 95 Oxygen Delivery Room Air 06/20/25 10:07 Temperature Pulse Rate 66 Respiratory Rate Blood Pressure Pulse Oximetry Oxygen Delivery Exam Narrative: exam today reveals him to be awake alert cooperative in no obvious acute distress, head normocephalic with no cranial bruit, neck supple with no cervical bruit no thyromegaly no lymphadenopathy, heart regular with no murmur, lungs clear to auscultation, abdomen is soft nontender normal bowel sounds, neurologically he is awake alert able to follow the verbal commands appropriately, speech not dysphasic not dysarthric not dysphonic, he is aware of right and left, able to carry on the conversation daughter happened to be in the room, pupils round regular, feels the vision full in all 4 quadrants, extraocular movements full with no nystagmus, facial sensation intact, face symmetrical, tongue in the oral cavity, motor examination revealed him to have no drift against gravity and symmetrical strength in upper and lower extremity but somewhat decrease generally all over, decreased sensation distally, reflexes sluggish in the lower extremities, and plantars downgoing, Results Labs 06/19/25 06:42 06/19/25 06:42
[2025-06-20] MEDS: cefTRIAXone 1 GM in SODIUM CHLORIDE 0.9% IV 50 ML 100 ML IVPB (17:06)
[2025-06-20 17:22] LABS: Vitamin B12 457.0 pg/mL (239-931)
[2025-06-20] MEDS: AZITHROMYCIN 250 MG TABLET 500 MG PO (21:11)
[2025-06-20] MEDS: DONEPEZIL HCL 10 MG TABLET PO (21:11)
[2025-06-20] MEDS: traMADol HCL (*CRX) 50 MG TABLET PO (21:12)
[2025-06-20 22:00] VITALS: BP 116/74; PULSE 62; RESP 20; TEMP 35.6; O2SAT 98
[2025-06-20 22:26] VITALS: O2SAT 98
[2025-06-21 06:00] VITALS: BP 121/73; PULSE 58; RESP 20; TEMP 36.1; O2SAT 97
[2025-06-21 06:19] LABS: Hematocrit 36.6 % (42.0-52.0); Hemoglobin 11.7 g/dL (14.0-18.0); Mean Corpuscular HGB Conc 32.0 g/dl (32-36); Mean Corpuscular Hemoglobin 29.3 pg (26-34); Mean Corpuscular Volume 91.7 fl (80-100); Platelet Count Result 181 k/mm3 (150-375); Red Blood Count 3.99 M/mm3 (4.6-6.20); White Blood Count 8.9 K/mm3 (4.5-10.0)
[2025-06-21 06:36] LABS: Anion Gap 7 mmol/L (4-12); Blood Urea Nitrogen 30 mg/dL (9-20); Calcium 9.0 mg/dL (8.4-10.2); Carbon Dioxide 20 mmol/L (22-30); Chloride 109 mmol/L (98-107); Cholesterol 135 mg/dL (0-200); Estimated CRCL calculation 33 ml/min; Estimated Glomerular Filt Rate 43; Glucose 89 mg/dL (65-110); HDL Direct 39 mg/dL; Potassium 3.7 mmol/L (3.4-5.0); Sodium 136 mmol/L (137-145); Triglycerides 66 mg/dL (<150)
[2025-06-21] MEDS: OLMESARTAN MEDOXOMIL 20 MG TABLET 40 MG PO (08:45)
[2025-06-21] MEDS: FUROSEMIDE 20 MG TABLET PO (08:46)
[2025-06-21] MEDS: ENOXAPARIN 40 MG/0.4 ML SYRINGE SUB-Q (08:46)
[2025-06-21] MEDS: PREGABALIN (*CRX) 50 MG CAPSULE PO ×2 (08:46→21:27)
[2025-06-21 08:51] VITALS: PULSE 63
[2025-06-21] MEDS: METOPROLOL SUCCINATE EXT REL 50 MG TABCR PO (08:51)
--- NOTE | 2025-06-21 09:07 | P.PNIM_ITS ---
Progress Note: A&P Assessment and Plan (1) PNA (pneumonia): Qualifiers: Laterality: bilateral Lung location: unspecified part of lung Pneumonia type: due to unspecified organism Qualified Code(s): J18.9 - Pneumonia, unspecified organism Code(s): J18.9 - Pneumonia, unspecified organism Status: Acute Assessment and Plan: - CXR: 1. Small opacities in the mid and lower lungs. Differential includes atelectasis/scarring or infiltrates. 2. Left-sided central venous catheter with its tip at the junction between the left brachiocephalic vein and superior vena cava. - CTA chest/abd/pelvis: 1. Subtle bony irregularity of the superior endplate of the T12 vertebral body which may be due to a compression fracture of indeterminate age. Correlate for point tenderness. Consider an MRI of the thoracic spine for further assessment. The finding is new as compared to the study from 2017. 2. No pulmonary embolism identified. 3. Moderate sized patchy and reticular opacities scattered throughout both lungs most prominent in the lower lungs. The findings are new as compared to the chest CT from 06/05/2017. Differential includes but is not limited to edema or pneumonia. Follow-up is recommended. 4.Diverticulosis in the descending and sigmoid colon with a small amount of surrounding fat stranding. Mild acute diverticulitis is possible in the appropriate clinical setting. 5.Indeterminate 1.8 cm low-density lesion in the right lobe of the liver. A liver mass CT or MRI is recommended. 6.Abdominal aorta is ectatic. Infrarenal abdominal aortic aneurysm measuring 3.5 x 2.5 cm. Moderate amount of atherosclerosis disease in the abdominal aorta. - started on ceftriaxone and azithromycin, adding Flagyl due to possible concerns of early diverticulitis. Currently asymptomatic beyond generalized weakness and somnolence. - check MRSA PCR and sputum culture if obtainable - supportive care: Tessalon Perles p.r.n., Mucinex tory, DuoNebs p.r.n., Tylenol p.r.n. - no current supplemental O2 requirement Given patient's general appearance, increased respiratory effort, and somnolence he was admitted for observation and initiation of broad-spectrum IV antibiotics. downgrade to PO andreea osborne antibitoics IS ambulation up to chair tid with meals remains on ra wbc wnl, afebrile (2) Failure to thrive: Qualifiers: Failure to thrive age range: in adult Qualified Code(s): R62.7 - Adult failure to thrive Status: Acute Assessment and Plan: - has had worsening gait instability, multiple falls, and physical deconditioning since October of 2024 (last 6 months). Was worked up at [facility] in [place] at the end of May, no acute findings. Currently going through rehab at [facility]. - PT/OT eval and treatment (3) Atrial fibrillation: Qualifiers: Atrial fibrillation type: unspecified Qualified Code(s): I48.91 - Unspecified atrial fibrillation Code(s): I48.91 - Unspecified atrial fibrillation Status: Chronic Assessment and Plan: - initial EKG showed sinus rhythm, left ventricular hypertrophy with ST-T change, minimal Q-waves high lateral leads, baseline artifact. When compared to EKG done in May of 2024 there are no significant changes. - continue home medications: Metoprolol tele (4) Stage 3a chronic kidney disease: Code(s): N18.31 - Chronic kidney disease, stage 3a Status: Chronic Assessment and Plan: - creatinine 1.52, BUN 25, GFR 44 - baseline creatinine: 1.5 - 2.0 - follows with nephrology at [place] - trend renal function - trend electrolytes, correct as needed iv hydration \trend labs sligh increase in BUN/CR but overall stable around 30/1.5 (5) Essential (primary) hypertension: Code(s): I10 - Essential (primary) hypertension Status: Chronic Assessment and Plan: - chronic, currently 119/71 - continue home medications: Amlodipine - monitor bp this afternoon a bit soft-will hold am dose if systolic remains under 100 (6) Unsteady gait: Code(s): R26.81 - Unsteadiness on feet Status: Acute Assessment and Plan: requested records from [place] to see what imaging was done neurology consulted pt/ot Plan - Will need outpatient follow-up on an indeterminate 1.8 cm low-density lesion in the right lobe of the liver that was seen on CT on 06/18. A liver mass CT or MRI is recommended. - son describing periods of apnea and altered breathing wall sleep, will check ApneaLink Diet: Heart healthy GI Prophylaxis: n/a DVT Prophylaxis: Lovenox IV fluids: None Lines/Tubes: Peripheral IV Code Status: Full code Time Spent With Patient Time with patient: 25 - 35 minutes Subjective Date/time seen: 06/21/25 09:07 Interval history: 85 y/o M with PMH of anxiety, depression, aortic aneurysm, renal insufficiency, hypertension, and suspected dementia presents here with shortness of breath. Pt is seen and examined today. Neurology saw pt. MRI ordered. Will continue antibiotics. He is working with PT/OT. He is alert and oriented, feeling better today. Daughter at the bedside-all questions answered, plan of care discussed. Review of Systems Review of Systems: All systems reviewed & are unremarkable except as noted in HPI and below Exam Const: General: comfortable and no acute distress Other: , male, elderly, obese body habitus, chronically ill-appearing HENMT: Face/Nose/Sinus: Normal nares present Mouth: Yes moist mucous membranes Eyes: General: appearance normal, both eyes and all related structures Sclera: sclerae normal Pupils: Equal, round and reactive pupils present EOM: EOMs intact bilaterally Resp: Other: Bibasilar crackles, no wheezing, mild tachypnea without accessory muscle use. Witnessed apnea while falling asleep Cardio: Rate: regular rate Rhythm: regular rhythm Other: S1-S2 present without murmur, rub, ectopy GI: Other: Abdomen soft, rounded, nontender. Normoactive bowel sounds in all quadrants. Skin: General skin exam: normal color and no rashes or lesions noted Wounds: no wounds Neuro: Cranial nerves: Yes Equal, round and reactive pupils present Speech: normal speech Motor exam (neuro): 5/5 motor strength present throughout Sensory Exam: normal sensation Other: A&O x4 present, very somnolent and falls asleep easily during exam however also awakens easily Extrem: General: normal to inspection Psych: Mental Status: mental status grossly normal Affect: normal affect Other: Fair insight and judgment, pleasant Objective Data Vital Signs Vital Signs: Vital Signs - 24 hr 06/20/25 10:07 06/20/25 14:00 06/20/25 22:00 Temperature 97.8 F 96.0 F L Pulse Rate 66 63 62 Respiratory Rate 18 20 Blood Pressure 92/60 L 116/74 Pulse Oximetry 98 98 Oxygen Delivery 06/20/25 22:26 06/21/25 06:00 06/21/25 08:51 Temperature 97.0 F L Pulse Rate 58 L 63 Respiratory Rate 20 Blood Pressure 121/73 Pulse Oximetry 98 97 Oxygen Delivery Room Air Intake/Output Intake/Output: Intake & Output 06/18/25 06/19/25 06/20/25 06/21/25 23:59 23:59 23:59 23:59 Intake Total 1300 1020 640 250 Output Total 750 950 800 Balance 8467 800 -177 -661 Meds/Results Medications: Active Medications Generic Name Dose Route Start Last Admin Trade Name Freq PRN Reason Stop Dose Admin Acetaminophen 650 mg 06/18/25 19:23 Acetaminophen 325 Mg Tablet PO Q6H PRN Mild Pain (1-3) or Fever Albuterol/Ipratropium 3 ml 06/18/25 19:23 Ipratropium 0.5 Mg/Albuterol Sulfate 2.5 Mg Ampul.Neb 3 Ml INHALATION Q6HRT PRN Shortness Of Breath Or Wheezing Allopurinol 100 mg 06/19/25 08:00 06/21/25 08:46 Allopurinol 100 Mg Tablet PO 100 mg DAILY@0800 [facility] Administration Allopurinol 300 mg 06/19/25 08:00 06/21/25 08:46 Allopurinol 300 Mg Tablet PO 300 mg DAILY@0800 [facility] Administration Amlodipine Besylate 2.5 mg 06/19/25 09:00 06/21/25 08:50 Amlodipine Besylate 2.5 Mg Tablet PO 2.5 mg DAILY [facility] Administration Azithromycin 500 mg 06/19/25 19:00 06/20/25 21:11 Azithromycin 250 Mg Tablet PO 06/22/25 21:01 500 mg QHS [facility] Administration Clotrimazole 1 applic 06/19/25 09:00 06/21/25 08:47 Betamethasone/Clotrimazole Cream 15 Gm Tube TOPICAL 1 applic BID [facility] Administration Donepezil HCl 10 mg 06/18/25 23:45 06/20/25 21:11 Donepezil Hcl 10 Mg Tablet PO 10 mg HS [facility] Administration Enoxaparin Sodium 40 mg 06/19/25 09:00 06/21/25 08:46 Enoxaparin 40 Mg/0.4 Ml Syringe SUB-Q 40 mg DAILY [facility] Administration Furosemide 20 mg 06/19/25 09:00 06/21/25 08:46 Furosemide 20 Mg Tablet PO 20 mg QAM [facility] Administration Ceftriaxone Sodium 1 gm/ 50 mls @ 100 mls/hr 06/18/25 17:00 06/20/25 17:06 Sodium Chloride IVPB 100 mls/hr Q24H [facility] Administration Lidocaine 1 patch 06/19/25 09:00 06/21/25 08:47 Lidocaine 5% Patch TRANSDERM Not Given DAILY [facility] Metoprolol Succinate 50 mg 06/19/25 09:00 06/21/25 08:51 Metoprolol Succinate Ext Rel 50 Mg Tabcr PO 50 mg DAILY [facility] Administration Metronidazole 500 mg 06/19/25 22:00 06/21/25 06:07 Metronidazole 500 Mg Tablet PO 500 mg Q8HR [facility] Administration Olmesartan 40 mg 06/19/25 09:00 06/21/25 08:45 Olmesartan Medoxomil 20 Mg Tablet PO 40 mg QAM [facility] Administration Prednisone 2.5 mg 06/19/25 09:00 06/21/25 08:45 Prednisone 2.5 Mg Tablet PO 2.5 mg DAILY [facility] Administration Pregabalin 50 mg 06/19/25 09:00 06/21/25 08:46 Pregabalin (*Crx) 50 Mg Capsule PO 50 mg Q12HR [facility] Administration Tramadol HCl 50 mg 06/18/25 23:37 06/20/25 21:12 Tramadol Hcl (*Crx) 50 Mg Tablet PO 50 mg QID PRN Administration pain 4-10 Radiology Results: ITS Impressions Chest X-Ray 06/18/25 12:12 IMPRESSION: 1. Small opacities in the mid and lower lungs. Differential includes atelectasis/scarring or infiltrates. 2. Left-sided central venous catheter with its tip at the junction between the left brachiocephalic vein and superior vena cava. Chest/Abdomen/Pelvis CTA 06/18/25 13:24 IMPRESSION: 1. Subtle bony irregularity of the superior endplate of the T12 vertebral body which may be due to a compression fracture of indeterminate age. Correlate for point tenderness. Consider an MRI of the thoracic spine for further assessment. The finding is new as compared to the study from 2017. 2. No pulmonary embolism identified. 3. Moderate sized patchy and reticular opacities scattered throughout both lungs most prominent in the lower lungs. The findings are new as compared to the chest CT from 06/05/2017. Differential includes but is not limited to edema or pneum onia. Follow-up is recommended. 4.Diverticulosis in the descending and sigmoid colon with a small amount of surrounding fat stranding. Mild acute diverticulitis is possible in the appropri ate clinical setting. 5.Indeterminate 1.8 cm low-density lesion in the right lobe of the liver. A liver mass CT or MRI is recommended. 6.Abdominal aorta is ectatic. Infrarenal abdominal aortic aneurysm measuring 3.5 x 2.5 cm. Moderate amount of atherosclerosis disease in the abdominal aorta. Labs Labs: Laboratory Results - last 24 hr 06/20/25 06/21/25 16:05 06:06 WBC 8.9 RBC 3.99 L Hgb 11.7 L Hct 36.6 L MCV 91.7 MCH 29.3 MCHC 32.0 RDW 15.5 H Plt Count 181 MPV 10.0 Sodium 136 L Potassium 3.7 Chloride 109 H Carbon Dioxide 20 L Anion Gap 7 BUN 30 H Creatinine 1.56 H Estim Creat Clear Calc 33 Estimated GFR 43 L Glucose 89 Calcium 9.0 Triglycerides 66 Cholesterol 135 LDL Cholesterol Direct 53 HDL Direct 39 Vitamin B12 457.0 Quality VTE Prophylaxis VTE prophylaxis: pharmacologic ordered
--- NOTE | 2025-06-21 13:15 | P.PNNEUR_ITS ---
Subjective Date/time seen: 06/21/25 13:15 Interval history: Follow-up with the ongoing diagnosis as such, MRI of the brain has been done and as per the findings has moderate to severe chronic microvascular ischemic changes with moderate generalized atrophy but there is no mention about the stroke. Will discuss with the patient and explained to him about the gait dysfunction though partially has explained to him before that he will need the EMG as an outpatient. Objective Data Vital Signs Vital Signs: Vital Signs - 24 hr 06/20/25 14:00 06/20/25 22:00 06/20/25 22:26 Temperature 36.6 C 35.6 C L Pulse Rate 63 62 Respiratory Rate 18 20 Blood Pressure 92/60 L 116/74 Pulse Oximetry 98 98 98 Oxygen Delivery Room Air 06/21/25 06:00 06/21/25 08:00 06/21/25 08:51 Temperature 36.1 C L Pulse Rate 58 L 63 Respiratory Rate 20 Blood Pressure 121/73 Pulse Oximetry 97 Oxygen Delivery Room Air Intake/Output Intake/Output: Intake & Output 06/18/25 06/19/25 06/20/25 06/21/25 23:59 23:59 23:59 23:59 Intake Total 1300 1020 640 490 Output Total 750 950 800 Balance 1300 765 -776 -668 Meds/Results Medications: Active Medications Generic Name Dose Route Start Last Admin Trade Name Freq PRN Reason Stop Dose Admin Acetaminophen 650 mg 06/18/25 19:23 Acetaminophen 325 Mg Tablet PO Q6H PRN Mild Pain (1-3) or Fever Albuterol/Ipratropium 3 ml 06/18/25 19:23 Ipratropium 0.5 Mg/Albuterol Sulfate 2.5 Mg Ampul.Neb 3 Ml INHALATION Q6HRT PRN Shortness Of Breath Or Wheezing Allopurinol 100 mg 06/19/25 08:00 06/21/25 08:46 Allopurinol 100 Mg Tablet PO 100 mg DAILY@0800 [facility] Administration Allopurinol 300 mg 06/19/25 08:00 06/21/25 08:46 Allopurinol 300 Mg Tablet PO 300 mg DAILY@0800 [facility] Administration Amlodipine Besylate 2.5 mg 06/19/25 09:00 06/21/25 08:50 Amlodipine Besylate 2.5 Mg Tablet PO 2.5 mg DAILY [facility] Administration Azithromycin 500 mg 06/19/25 19:00 06/20/25 21:11 Azithromycin 250 Mg Tablet PO 06/22/25 21:01 500 mg QHS [facility] Administration Clotrimazole 1 applic 06/19/25 09:00 06/21/25 08:47 Betamethasone/Clotrimazole Cream 15 Gm Tube TOPICAL 1 applic BID [facility] Administration Donepezil HCl 10 mg 06/18/25 23:45 06/20/25 21:11 Donepezil Hcl 10 Mg Tablet PO 10 mg HS ON LICENSE OF [facility] Administration Enoxaparin Sodium 40 mg 06/19/25 09:00 06/21/25 08:46 Enoxaparin 40 Mg/0.4 Ml Syringe SUB-Q 40 mg DAILY [facility] Administration Furosemide 20 mg 06/19/25 09:00 06/21/25 08:46 Furosemide 20 Mg Tablet PO 20 mg QAM ON LICENSE OF [facility] Administration Ceftriaxone Sodium 1 gm/ 50 mls @ 100 mls/hr 06/18/25 17:00 06/20/25 17:06 Sodium Chloride IVPB 100 mls/hr Q24H [facility] Administration Lidocaine 1 patch 06/19/25 09:00 06/21/25 08:47 Lidocaine 5% Patch TRANSDERM Not Given DAILY ON LICENSE OF [facility] Metoprolol Succinate 50 mg 06/19/25 09:00 06/21/25 08:51 Metoprolol Succinate Ext Rel 50 Mg Tabcr PO 50 mg DAILY [facility] LICENSE OF [facility] Administration Metronidazole 500 mg 06/19/25 22:00 06/21/25 06:07 Metronidazole 500 Mg Tablet PO 500 mg Q8HR [facility] Administration Olmesartan 40 mg 06/19/25 09:00 06/21/25 08:45 Olmesartan Medoxomil 20 Mg Tablet PO 40 mg QAM ON LICENSE OF [facility] Administration Prednisone 2.5 mg 06/19/25 09:00 06/21/25 08:45 Prednisone 2.5 Mg Tablet PO 2.5 mg DAILY ON [facility] OF [facility] Administration Pregabalin 50 mg 06/19/25 09:00 06/21/25 08:46 Pregabalin (*Crx) 50 Mg Capsule PO 50 mg Q12HR [facility] Administration Tramadol HCl 50 mg 06/18/25 23:37 06/20/25 21:12 Tramadol Hcl (*Crx) 50 Mg Tablet PO 50 mg QID PRN Administration pain 4-10 Radiology Results: ITS Impressions Chest X-Ray 06/18/25 12:12 IMPRESSION: 1. Small opacities in the mid and lower lungs. Differential includes atelectasis/scarring or infiltrates. 2. Left-sided central venous catheter with its tip at the junction between the left brachiocephalic vein and superior vena cava. Chest/Abdomen/Pelvis CTA 06/18/25 13:24 IMPRESSION: 1. Subtle bony irregularity of the superior endplate of the T12 vertebral body which may be due to a compression fracture of indeterminate age. Correlate for point tenderness. Consider an MRI of the thoracic spine for further assessment. The finding is new as compared to the study from 2017. 2. No pulmonary embolism identified. 3. Moderate sized patchy and reticular opacities scattered throughout both lungs most prominent in the lower lungs. The findings are new as compared to the chest CT from 06/05/2017. Differential includes but is not limited to edema or pneumonia. Follow-up is recommended. 4.Diverticulosis in the descending and sigmoid colon with a small amount of surr ounding fat stranding. Mild acute diverticulitis is possible in the appropriate clinical setting. 5.Indeterminate 1.8 cm low-density lesion in the right lobe of the liver. A liver mass CT or MRI is recommended. 6.Abdominal aorta is ectatic. Infrarenal abdominal aortic aneurysm measuring 3.5 x 2.5 cm. Moderate amount of atherosclerosis disease in the abdominal aorta. Brain MRI 06/21/25 12:01 IMPRESSION: No acute abnormality. Moderate to severe chronic microvascular ischemic change and moderate generalized atrophy. Labs Labs: Laboratory Results - last 24 hr 06/20/25 06/21/25 16:05 06:06 WBC 8.9 RBC 3.99 L Hgb 11.7 L Hct 36.6 L MCV 91.7 MCH 29.3 MCHC 32.0 RDW 15.5 H Plt Count 181 MPV 10.0 Sodium 136 L Potassium 3.7 Chloride 109 H Carbon Dioxide 20 L Anion Gap 7 BUN 30 H Creatinine 1.56 H Estim Creat Clear Calc 33 Estimated GFR 43 L Glucose 89 Calcium 9.0 Triglycerides 66 Cholesterol 135 LDL Cholesterol Direct 53 HDL Direct 39 Vitamin B12 457.0
[2025-06-21 14:00] VITALS: BP 124/79; PULSE 61; RESP 18; TEMP 36.6; O2SAT 100
[2025-06-21] MEDS: cefTRIAXone 1 GM in SODIUM CHLORIDE 0.9% IV 50 ML 100 ML IVPB (16:40)
[2025-06-21 21:27] VITALS: O2SAT 96
[2025-06-21] MEDS: DONEPEZIL HCL 10 MG TABLET PO (21:27)
[2025-06-21] MEDS: AZITHROMYCIN 250 MG TABLET 500 MG PO (21:27)
[2025-06-21 22:00] VITALS: BP 117/72; PULSE 66; RESP 18; TEMP 36.3; O2SAT 96
[2025-06-22 05:39] LABS: Hematocrit 38.7 % (42.0-52.0); Hemoglobin 12.6 g/dL (14.0-18.0); Mean Corpuscular HGB Conc 32.6 g/dl (32-36); Mean Corpuscular Hemoglobin 29.8 pg (26-34); Mean Corpuscular Volume 91.5 fl (80-100); Platelet Count Result 199 k/mm3 (150-375); Red Blood Count 4.23 M/mm3 (4.6-6.20); White Blood Count 9.6 K/mm3 (4.5-10.0)
[2025-06-22 06:00] VITALS: BP 117/91; PULSE 66; RESP 18; TEMP 36.4; O2SAT 95
[2025-06-22 06:07] LABS: Anion Gap 7 mmol/L (4-12); Blood Urea Nitrogen 27 mg/dL (9-20); Calcium 9.1 mg/dL (8.4-10.2); Carbon Dioxide 21 mmol/L (22-30); Chloride 104 mmol/L (98-107); Estimated CRCL calculation 34 ml/min; Estimated Glomerular Filt Rate 45; Glucose 87 mg/dL (65-110); Potassium 3.7 mmol/L (3.4-5.0); Sodium 132 mmol/L (137-145)
[2025-06-22 08:00] VITALS: PULSE 66; RESP 18; O2SAT 95
[2025-06-22] MEDS: OLMESARTAN MEDOXOMIL 20 MG TABLET 40 MG PO (09:54)
[2025-06-22] MEDS: FUROSEMIDE 20 MG TABLET PO (09:54)
[2025-06-22] MEDS: METOPROLOL SUCCINATE EXT REL 50 MG TABCR PO (09:54)
[2025-06-22] MEDS: PREGABALIN (*CRX) 50 MG CAPSULE PO ×2 (09:54→21:30)
[2025-06-22] MEDS: ENOXAPARIN 40 MG/0.4 ML SYRINGE SUB-Q (09:55)
[2025-06-22 10:07] LABS: Hematocrit 37.9 % (37.5-51.0)
--- NOTE | 2025-06-22 12:58 | P.PNNEUR_ITS ---
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 Crocker's findings if he should have EMG nerve can study of the lower limbs and most likely a prolonged course of rehab gait strengthening. At this time he is not able to get up and take care of himself and I do not feel he is safe to go home. Taken for the with social worker psychiatric. Subjective Date/time seen: 06/22/25 12:58 Interval history: Patient continues to complain of difficulty in walking. He lives by himself. His sister was present the time of the evaluation. He has a walker and still he has difficulty getting up and walking around. He denies any specific symptoms such as weakness his lower limbs had history of atrial fibrillation chronic kidney disease and suspected of peripheral neuropathy. Dr. Winkler saw him and thought he will arrange a EMG nerve can study. The patient is on Aricept for dementia however overall he seems to function fairly well living by himself. He has had similar problem in the past and that was attributed to having a right cerebellar stroke and also some white matter changes were noted patient has been through physical therapy however he continues to have problem with ambulation is indeed asking for some help this regard. Repeat MRI was performed which did not show any additional new findings. Moderate to severe white matter changes and right cerebellar infarct were noted. He also history of chronic kidney disease. He has had an episode of loss of consciousness. EEG is also planned. He has been more less bed-bound. Suspected pneumonia and being treated. His last LDL was 53. Was seen by [facility] in January of 2023 and ordered physical therapy. According the patient nothing specific was found. He used to have vertigo that also in no longer problem. His son lives next door and is helpful. Review of Systems Review of Systems: All systems reviewed & are unremarkable except as noted in HPI and below Exam Narrative: Fully conscious alert oriented symptom pleasant person. His speech is fluent and articulate. No aphasia or dysarthria. Examination head and neck was unremarkable. Cranial nerves in you testing intact. Motor system normal power and upper lower limbs. Deep tendon reflexes are decreased in lower limbs. No spasticity. No sensory level. No distal sensory loss noted in the lower limbs. No involuntary movements or cogwheeling was noted. I tried to get him up to stand up with the help of a nurse and also try to check his blood pressure but he was not able to stand long enough to do the blood pressure started to fall back into the bed. His posture is also not adequate. Objective Data Vital Signs Vital Signs: Vital Signs - 24 hr 06/21/25 14:00 06/21/25 21:27 06/21/25 22:00 Temperature 97.8 F 97.3 F L Pulse Rate 61 66 Respiratory Rate 18 18 Blood Pressure 124/79 117/72 Pulse Oximetry 100 96 96 Oxygen Delivery Room Air 06/22/25 06:00 06/22/25 09:12 Temperature 97.6 F Pulse Rate 66 Respiratory Rate 18 Blood Pressure 117/91 H Pulse Oximetry 95 Oxygen Delivery Room Air Intake/Output Intake/Output: Intake & Output 06/19/25 06/20/25 06/21/25 06/22/25 23:59 23:59 23:59 23:59 Intake Total 4848 225 4079 240 Output Total 788 913 5421 2600 Balance 270 -260 570 -2360 Meds/Results Medications: Active Medications Generic Name Dose Route Start Last Admin Trade Name Freq PRN Reason Stop Dose Admin Acetaminophen 650 mg 06/18/25 19:23 Acetaminophen 325 Mg Tablet PO Q6H PRN Mild Pain (1-3) or Fever Albuterol/Ipratropium 3 ml 06/18/25 19:23 Ipratropium 0.5 Mg/Albuterol Sulfate 2.5 Mg Ampul.Neb 3 Ml INHALATION Q6HRT PRN Shortness Of Breath Or Wheezing Allopurinol 100 mg 06/19/25 08:00 06/22/25 09:54 Allopurinol 100 Mg Tablet PO 100 mg DAILY@0800 [facility] Administration Allopurinol 300 mg 06/19/25 08:00 06/22/25 09:54 Allopurinol 300 Mg Tablet PO 300 mg DAILY@0800 [facility] Administration Amlodipine Besylate 2.5 mg 06/19/25 09:00 06/22/25 09:55 Amlodipine Besylate 2.5 Mg Tablet PO 2.5 mg DAILY [facility] Administration Amoxicillin/Clavulanate Potassium 1 tablet 06/22/25 12:00 06/22/25 12:37 Amoxicillin/Clavulanate K 875-125 Mg Tab PO 06/23/25 09:01 1 tablet Q12HR ZOEY Administration Azithromycin 500 mg 06/19/25 19:00 06/21/25 21:27 Azithromycin 250 Mg Tablet PO 06/22/25 21:01 500 mg QHS [facility] Administration Clotrimazole 1 applic 06/19/25 09:00 06/22/25 09:55 Betamethasone/Clotrimazole Cream 15 Gm Tube TOPICAL 1 applic BID [facility] Administration Donepezil HCl 10 mg 06/18/25 23:45 06/21/25 21:27 Donepezil Hcl 10 Mg Tablet PO 10 mg HS [facility] Administration Enoxaparin Sodium 40 mg 06/19/25 09:00 06/22/25 09:55 Enoxaparin 40 Mg/0.4 Ml Syringe SUB-Q 40 mg DAILY [facility] Administration Furosemide 20 mg 06/19/25 09:00 06/22/25 09:54 Furosemide 20 Mg Tablet PO 20 mg QAM [facility] Administration Lidocaine 1 patch 06/19/25 09:00 06/22/25 09:56 Lidocaine 5% Patch TRANSDERM Not Given DAILY [facility] Metoprolol Succinate 50 mg 06/19/25 09:00 06/22/25 09:54 Metoprolol Succinate Ext Rel 50 Mg Tabcr PO 50 mg DAILY [facility] Administration Olmesartan 40 mg 06/19/25 09:00 06/22/25 09:54 Olmesartan Medoxomil 20 Mg Tablet PO 40 mg QAM [facility] Administration Prednisone 2.5 mg 06/19/25 09:00 06/22/25 09:54 Prednisone 2.5 Mg Tablet PO 2.5 mg DAILY [facility] Administration Pregabalin 50 mg 06/19/25 09:00 06/22/25 09:54 Pregabalin (*Crx) 50 Mg Capsule PO 50 mg Q12HR [facility] Administration Tramadol HCl 50 mg 06/18/25 23:37 06/20/25 21:12 Tramadol Hcl (*Crx) 50 Mg Tablet PO 50 mg QID PRN Administration pain 4-10 Radiology Results: ITS Impressions Chest X-Ray 06/18/25 12:12 IMPRESSION: 1. Small opacities in the mid and lower lungs. Differential includes atelectasis/scarring or infiltrates. 2. Left-sided central venous catheter with its tip at the junction between the left brachiocephalic vein and superior vena cava. Chest/Abdomen/Pelvis CTA 06/18/25 13:24 IMPRESSION: 1. Subtle bony irregularity of the superior endplate of the T12 vertebral body which may be due to a compression fracture of indeterminate age. Correlate for point tenderness. Consider an MRI of the thoracic spine for further assessment. The finding is new as compared to the study from 2017. 2. No pulmonary embolism identified. 3. Moderate sized patchy and reticular opacities scattered throughout both lungs most prominent in the lower lungs. The findings are new as compared to the chest CT from 06/05/2017. Differential includes but is not limited to edema or pneumonia. Follow-up is recommended. 4.Diverticulosis in the descending and sigmoid colon with a small amount of surrounding fat stranding. Mild acute diverticulitis is possible in the appropriate clinical setting. 5.Indeterminate 1.8 cm low-density lesion in the right lobe of the liver. A liver mass CT or MRI is recommended. 6.Abdominal aorta is ectatic. Infrarenal abdominal aortic aneurysm measuring 3.5 x 2.5 cm. Moderate amount of atherosclerosis disease in the abdominal aorta. Brain MRI 06/21/25 12:01 IMPRESSION: No acute abnormality. Moderate to severe chronic microvascular ischemic change and moderate generalized atrophy. Labs Labs: Laboratory Results - last 24 hr 06/20/25 06/22/25 16:05 05:18 WBC 9.6 RBC 4.23 L Hgb 12.6 L Hct 37.9 38.7 L MCV 91.5 MCH 29.8 MCHC 32.6 RDW 15.3 H Plt Count 199 MPV 9.9 Sodium 132 L Potassium 3.7 Chloride 104 Carbon Dioxide 21 L Anion Gap 7 BUN 27 H Creatinine 1.49 H Estim Creat Clear Calc 34 Estimated GFR 45 L Glucose 87 Calcium 9.1 RBC Folate Hemolysate RBC Folate
[2025-06-22 14:00] VITALS: BP 121/72; PULSE 63; RESP 18; TEMP 36.4; O2SAT 97
--- NOTE | 2025-06-22 15:16 | P.PNIM_ITS ---
Progress Note: A&P Assessment and Plan (1) PNA (pneumonia): Qualifiers: Laterality: bilateral Lung location: unspecified part of lung Pneumonia type: due to unspecified organism Qualified Code(s): J18.9 - Pneumonia, unspecified organism Code(s): J18.9 - Pneumonia, unspecified organism Status: Acute Assessment and Plan: - CXR: 1. Small opacities in the mid and lower lungs. Differential includes atelectasis/scarring or infiltrates. 2. Left-sided central venous catheter with its tip at the junction between the left brachiocephalic vein and superior vena cava. - CTA chest/abd/pelvis: 1. Subtle bony irregularity of the superior endplate of the T12 vertebral body which may be due to a compression fracture of indeterminate age. Correlate for point tenderness. Consider an MRI of the thoracic spine for further assessment. The finding is new as compared to the study from 2017. 2. No pulmonary embolism identified. 3. Moderate sized patchy and reticular opacities scattered throughout both lungs most prominent in the lower lungs. The findings are new as compared to the chest CT from 06/05/2017. Differential includes but is not limited to edema or pneumonia. Follow-up is recommended. 4.Diverticulosis in the descending and sigmoid colon with a small amount of surrounding fat stranding. Mild acute diverticulitis is possible in the appropriate clinical setting. 5.Indeterminate 1.8 cm low-density lesion in the right lobe of the liver. A liver mass CT or MRI is recommended. 6.Abdominal aorta is ectatic. Infrarenal abdominal aortic aneurysm measuring 3.5 x 2.5 cm. Moderate amount of atherosclerosis disease in the abdominal aorta. - started on ceftriaxone and azithromycin, adding Flagyl due to possible concerns of early diverticulitis. Currently asymptomatic beyond generalized weakness and somnolence. - check MRSA PCR and sputum culture if obtainable - supportive care: Tessalon Perles p.r.n., Mucinex tory, DuoNebs p.r.n., Tylenol p.r.n. - no current supplemental O2 requirement Given patient's general appearance, increased respiratory effort, and somnolence he was admitted for observation and initiation of broad-spectrum IV antibiotics. downgrade to PO andreea osborne antibitoics IS ambulation up to chair tid with meals remains on ra wbc wnl, afebrile 06/22 downgraded to augmenting today afebrile, wbc stable (2) Failure to thrive: Qualifiers: Failure to thrive age range: in adult Qualified Code(s): R62.7 - Adult failure to thrive Status: Acute Assessment and Plan: - has had worsening gait instability, multiple falls, and physical deconditioning since October of 2024 (last 6 months). Was worked up at [facility] in [place] at the end of May, no acute findings. Currently going through rehab at [facility]. - PT/OT eval and treatment (3) Atrial fibrillation: Qualifiers: Atrial fibrillation type: unspecified Qualified Code(s): I48.91 - Unspecified atrial fibrillation Code(s): I48.91 - Unspecified atrial fibrillation Status: Chronic Assessment and Plan: - initial EKG showed sinus rhythm, left ventricular hypertrophy with ST-T change, minimal Q-waves high lateral leads, baseline artifact. When compared to EKG done in May of 2024 there are no significant changes. - continue home medications: Metoprolol tele (4) Stage 3a chronic kidney disease: Code(s): N18.31 - Chronic kidney disease, stage 3a Status: Chronic Assessment and Plan: - creatinine 1.52, BUN 25, GFR 44 - baseline creatinine: 1.5 - 2.0 - follows with nephrology at [place] - trend renal function - trend electrolytes, correct as needed iv hydration \trend labs sligh increase in BUN/CR but overall stable around 30/1.5 stable - monitor labs (5) Essential (primary) hypertension: Code(s): I10 - Essential (primary) hypertension Status: Chronic Assessment and Plan: - chronic, currently 119/71 - continue home medications: Amlodipine - monitor bp this afternoon a bit soft-will hold am dose if systolic remains under 100 06/22 BP reviewed and stable (6) Unsteady gait: Code(s): R26.81 - Unsteadiness on feet Status: Acute Assessment and Plan: requested records from [place] to see what imaging was done neurology consulted pt/ot Plan - Will need outpatient follow-up on an indeterminate 1.8 cm low-density lesion in the right lobe of the liver that was seen on CT on 06/18. A liver mass CT or MRI is recommended. - son describing periods of apnea and altered breathing wall sleep- will need Sleep study test done Diet: Heart healthy GI Prophylaxis: n/a DVT Prophylaxis: Lovenox IV fluids: None Lines/Tubes: Peripheral IV Code Status: Full code Time Spent With Patient Time with patient: 25 - 35 minutes Subjective Date/time seen: 06/22/25 15:16 Interval history: 85 y/o M with PMH of anxiety, depression, aortic aneurysm, renal insufficiency, hypertension, and suspected dementia presents here with shortness of breath. Downgraded to PO antibiotics today. Working with PT/OT. Got a bit dizzy this morning when got out of bed. Review of Systems Review of Systems: All systems reviewed & are unremarkable except as noted in HPI and below Exam Const: General: comfortable and no acute distress Other: , male, elderly, obese body habitus, chronically ill-appearing HENMT: Face/Nose/Sinus: Normal nares present Mouth: Yes moist mucous membranes Eyes: General: appearance normal, both eyes and all related structures Sclera: sclerae normal Pupils: Equal, round and reactive pupils present EOM: EOMs intact bilaterally Resp: Other: Bibasilar crackles, no wheezing, mild tachypnea without accessory muscle use. Witnessed apnea while falling asleep Cardio: Rate: regular rate Rhythm: regular rhythm Other: S1-S2 present without murmur, rub, ectopy GI: Other: Abdomen soft, rounded, nontender. Normoactive bowel sounds in all quadrants. Skin: General skin exam: normal color and no rashes or lesions noted Wounds: no wounds Neuro: Cranial nerves: Yes Equal, round and reactive pupils present Speech: normal speech Motor exam (neuro): 5/5 motor strength present throughout Sensory Exam: normal sensation Other: A&O x4 present, very somnolent and falls asleep easily during exam however also awakens easily Extrem: General: normal to inspection Psych: Mental Status: mental status grossly normal Affect: normal affect Other: Fair insight and judgment, pleasant Objective Data Vital Signs Vital Signs: Vital Signs - 24 hr 06/21/25 21:27 06/21/25 22:00 06/22/25 06:00 Temperature 97.3 F L 97.6 F Pulse Rate 66 66 Respiratory Rate 18 18 Blood Pressure 117/72 117/91 H Pulse Oximetry 96 96 95 Oxygen Delivery Room Air 06/22/25 08:00 06/22/25 09:12 06/22/25 14:00 Temperature 97.6 F Pulse Rate 66 63 Respiratory Rate 18 18 Blood Pressure 121/72 Pulse Oximetry 95 97 Oxygen Delivery Room Air Room Air Intake/Output Intake/Output: Intake & Output 06/19/25 06/20/25 06/21/25 06/22/25 23:59 23:59 23:59 23:59 Intake Total 5457 627 1318 480 Output Total 178 556 6702 2600 Balance 270 -260 570 -2120 Meds/Results Medications: Active Medications Generic Name Dose Route Start Last Admin Trade Name Freq PRN Reason Stop Dose Admin Acetaminophen 650 mg 06/18/25 19:23 Acetaminophen 325 Mg Tablet PO Q6H PRN Mild Pain (1-3) or Fever Albuterol/Ipratropium 3 ml 06/18/25 19:23 Ipratropium 0.5 Mg/Albuterol Sulfate 2.5 Mg Ampul.Neb 3 Ml INHALATION Q6HRT PRN Shortness Of Breath Or Wheezing Allopurinol 100 mg 06/19/25 08:00 06/22/25 09:54 Allopurinol 100 Mg Tablet PO 100 mg DAILY@0800 [facility] Administration Allopurinol 300 mg 06/19/25 08:00 06/22/25 09:54 Allopurinol 300 Mg Tablet PO 300 mg DAILY@0800 [facility] Administration Amlodipine Besylate 2.5 mg 06/19/25 09:00 06/22/25 09:55 Amlodipine Besylate 2.5 Mg Tablet PO 2.5 mg DAILY [facility] Administration Amoxicillin/Clavulanate Potassium 1 tablet 06/22/25 12:00 06/22/25 12:37 Amoxicillin/Clavulanate K 875-125 Mg Tab PO 06/23/25 09:01 1 tablet Q12HR [facility] Administration Azithromycin 500 mg 06/19/25 19:00 06/21/25 21:27 Azithromycin 250 Mg Tablet PO 06/22/25 21:01 500 mg QHS [facility] Administration Clotrimazole 1 applic 06/19/25 09:00 06/22/25 09:55 Betamethasone/Clotrimazole Cream 15 Gm Tube TOPICAL 1 applic BID [facility] Administration Donepezil HCl 10 mg 06/18/25 23:45 06/21/25 21:27 Donepezil Hcl 10 Mg Tablet PO 10 mg HS [facility] Administration Enoxaparin Sodium 40 mg 06/19/25 09:00 06/22/25 09:55 Enoxaparin 40 Mg/0.4 Ml Syringe SUB-Q 40 mg DAILY [facility] Administration Furosemide 20 mg 06/19/25 09:00 06/22/25 09:54 Furosemide 20 Mg Tablet PO 20 mg QAM [facility] Administration Lidocaine 1 patch 06/19/25 09:00 06/22/25 09:56 Lidocaine 5% Patch TRANSDERM Not Given DAILY [facility] Metoprolol Succinate 50 mg 06/19/25 09:00 06/22/25 09:54 Metoprolol Succinate Ext Rel 50 Mg Tabcr PO 50 mg DAILY [facility] Administration Olmesartan 40 mg 06/19/25 09:00 06/22/25 09:54 Olmesartan Medoxomil 20 Mg Tablet PO 40 mg QAM [facility] Administration Prednisone 2.5 mg 06/19/25 09:00 06/22/25 09:54 Prednisone 2.5 Mg Tablet PO 2.5 mg DAILY [facility] Administration Pregabalin 50 mg 06/19/25 09:00 06/22/25 09:54 Pregabalin (*Crx) 50 Mg Capsule PO 50 mg Q12HR [facility] Administration Tramadol HCl 50 mg 06/18/25 23:37 06/20/25 21:12 Tramadol Hcl (*Crx) 50 Mg Tablet PO 50 mg QID PRN Administration pain 4-10 Radiology Results: ITS Impressions Chest X-Ray 06/18/25 12:12 IMPRESSION: 1. Small opacities in the mid and lower lungs. Differential includes atelectasis/scarring or infiltrates. 2. Left-sided central venous catheter with its tip at the junction between the left brachiocephalic vein and superior vena cava. Chest/Abdomen/Pelvis CTA 06/18/25 13:24 IMPRESSION: 1. Subtle bony irregularity of the superior endplate of the T12 vertebral body which may be due to a compression fracture of indeterminate age. Correlate for point tenderness. Consider an MRI of the thoracic spine for further assessment. The finding is new as compared to the study from 2017. 2. No pulmonary embolism identified. 3. Moderate sized patchy and reticular opacities scattered throughout both lungs most prominent in the lower lungs. The findings are new as compared to the chest CT from 06/05/2017. Differential includes but is not limited to edema or pneum onia. Follow-up is recommended. 4.Diverticulosis in the descending and sigmoid colon with a small amount of surrounding fat stranding. Mild acute diverticulitis is possible in the appropri ate clinical setting. 5.Indeterminate 1.8 cm low-density lesion in the right lobe of the liver. A liver mass CT or MRI is recommended. 6.Abdominal aorta is ectatic. Infrarenal abdominal aortic aneurysm measuring 3.5 x 2.5 cm. Moderate amount of atherosclerosis disease in the abdominal aorta. Brain MRI 06/21/25 12:01 IMPRESSION: No acute abnormality. Moderate to severe chronic microvascular ischemic change and moderate generalized atrophy. Labs Labs: Laboratory Results - last 24 hr 06/20/25 06/22/25 16:05 05:18 WBC 9.6 RBC 4.23 L Hgb 12.6 L Hct 37.9 38.7 L MCV 91.5 MCH 29.8 MCHC 32.6 RDW 15.3 H Plt Count 199 MPV 9.9 Sodium 132 L Potassium 3.7 Chloride 104 Carbon Dioxide 21 L Anion Gap 7 BUN 27 H Creatinine 1.49 H Estim Creat Clear Calc 34 Estimated GFR 45 L Glucose 87 Calcium 9.1 RBC Folate Hemolysate RBC Folate Quality VTE Prophylaxis VTE prophylaxis: pharmacologic ordered
[2025-06-22 20:00] VITALS: BP 142/89; PULSE 64; RESP 18; TEMP 36.2; O2SAT 97
[2025-06-22] MEDS: DONEPEZIL HCL 10 MG TABLET PO (21:30)
[2025-06-22] MEDS: AZITHROMYCIN 250 MG TABLET 500 MG PO (21:35)
[2025-06-23 04:20] VITALS: BP 111/67; PULSE 76; RESP 20; TEMP 36; O2SAT 94
[2025-06-23 06:08] LABS: Hematocrit 39.1 % (42.0-52.0); Hemoglobin 12.6 g/dL (14.0-18.0); Mean Corpuscular HGB Conc 32.2 g/dl (32-36); Mean Corpuscular Hemoglobin 28.6 pg (26-34); Mean Corpuscular Volume 88.9 fl (80-100); Platelet Count Result 232 k/mm3 (150-375); Red Blood Count 4.40 M/mm3 (4.6-6.20); White Blood Count 9.3 K/mm3 (4.5-10.0)
[2025-06-23 06:40] LABS: Anion Gap 9 mmol/L (4-12); Blood Urea Nitrogen 25 mg/dL (9-20); Calcium 9.3 mg/dL (8.4-10.2); Carbon Dioxide 20 mmol/L (22-30); Chloride 105 mmol/L (98-107); Estimated CRCL calculation 36 ml/min; Estimated Glomerular Filt Rate 48; Glucose 90 mg/dL (65-110); Potassium 3.9 mmol/L (3.4-5.0); Sodium 134 mmol/L (137-145)
--- NOTE | 2025-06-23 08:23 | P.DS_ITS ---
DS: Admitting Diagnosis Discharge Date 06/23 Admitting Diagnosis weakness DS: Discharge Diagnosis Discharge Diagnosis (1) PNA (pneumonia): Qualifiers: Laterality: bilateral Lung location: unspecified part of lung Pneumonia type: due to unspecified organism Qualified Code(s): J18.9 - Pneumonia, unspecified organism Code(s): J18.9 - Pneumonia, unspecified organism Status: Acute (2) Failure to thrive: Qualifiers: Failure to thrive age range: in adult Qualified Code(s): R62.7 - Adult failure to thrive Status: Acute (3) Atrial fibrillation: Qualifiers: Atrial fibrillation type: unspecified Qualified Code(s): I48.91 - Unspecified atrial fibrillation Code(s): I48.91 - Unspecified atrial fibrillation Status: Chronic (4) Stage 3a chronic kidney disease: Code(s): N18.31 - Chronic kidney disease, stage 3a Status: Chronic (5) Essential (primary) hypertension: Code(s): I10 - Essential (primary) hypertension Status: Chronic (6) Unsteady gait: Code(s): R26.81 - Unsteadiness on feet Status: Acute DS: Summary Hospital Course Hospital Course: 85 y/o M with PMH of anxiety, depression, aortic aneurysm, renal insufficiency, hypertension, and suspected dementia presents here with shortness of breath. Several issues were addressed while he was hospitalized. Of note, he was just in [facility] where he had an extensive workup as well for fall and decreased mobility. It was a concern for apnea episodes - so he would need to f/u with PCP for sleep study eval. # pneumonia - CXR: 1. Small opacities in the mid and lower lungs. Differential includes atelectasis/scarring or infiltrates. 2. Left-sided central venous catheter with its tip at the junction between the left brachiocephalic vein and superior vena cava. - CTA chest/abd/pelvis: 1. Subtle bony irregularity of the superior endplate of the T12 vertebral body which may be due to a compression fracture of indeterminate age. Correlate for point tenderness. Consider an MRI of the thoracic spine for further assessment. The finding is new as compared to the study from 2017. 2. No pulmonary embolism identified. 3. Moderate sized patchy and reticular opacities scattered throughout both lungs most prominent in the lower lungs. The findings are new as compared to the chest CT from 06/05/2017. Differential includes but is not limited to edema or pneumonia. Follow-up is recommended. 4.Diverticulosis in the descending and sigmoid colon with a small amount of surrounding fat stranding. Mild acute diverticulitis is possible in the appropriate clinical setting. 5.Indeterminate 1.8 cm low-density lesion in the right lobe of the liver. A liver mass CT or MRI is recommended. 6.Abdominal aorta is ectatic. Infrarenal abdominal aortic aneurysm measuring 3.5 x 2.5 cm. Moderate amount of atherosclerosis disease in the abdominal aorta. - started on ceftriaxone and azithromycin, adding Flagyl due to possible co ncerns of early diverticulitis. Currently asymptomatic beyond generalized weakness and somnolence. - check MRSA PCR and sputum culture if obtainable - supportive care: Tessalon Perles p.r.n., Mucinex tory, DuoNebs p.r.n., Tylenol p.r.n. - no current supplemental O2 requirement downgrade to PO azith IS ambulation up to chair tid with meals remains on ra wbc wnl, afebrile 06/22 downgraded to augmenting today afebrile, wbc stable 06/23 COMPLETED ANTIBIOTICS # GAIT DIFFICULTY neurology consulted: Follow-up with the ongoing diagnosis as such, MRI of the brain has been done and as per the findings has moderate to severe chronic microvascular ischemic changes with moderate generalized atrophy but there is no mention about the stroke.... he will need the EMG as an outpatient. Very likely pt will need a prolonged course of rehab gait strengthening. # afib initial EKG showed sinus rhythm, left ventricular hypertrophy with ST-T change, minimal Q-waves high lateral leads, baseline artifact. When compared to EKG done in May of 2024 there are no significant changes. - continue home medications: Metoprolol tele # CKD N18.31 - Chronic kidney disease, stage 3 - creatinine 1.52, BUN 25, GFR 44 - baseline creatinine: 1.5 - 2.0 - follows with nephrology at [place] - trend renal function - trend electrolytes, correct as needed iv hydration \trend labs his baseline is around 1.5 Time Spent with Patient Time attestation: Total time spent providing and/or coordinating discharge services: Exam Const: General: comfortable and no acute distress Other: , male, elderly, obese body habitus, chronically ill-appearing HENMT: Face/Nose/Sinus: Normal nares present Mouth: Yes moist mucous membranes Eyes: General: appearance normal, both eyes and all related structures Sclera: sclerae normal Pupils: Equal, round and reactive pupils present EOM: EOMs intact bilaterally Resp: Other: Bibasilar crackles, no wheezing, mild tachypnea without accessory muscle use. Witnessed apnea while falling asleep Cardio: Rate: regular rate Rhythm: regular rhythm Other: S1-S2 present without murmur, rub, ectopy GI: Other: Abdomen soft, rounded, nontender. Normoactive bowel sounds in all quadrants. Skin: General skin exam: normal color and no rashes or lesions noted Wounds: no wounds Neuro: Cranial nerves: Yes Equal, round and reactive pupils present Speech: normal speech Motor exam (neuro): 5/5 motor strength present throughout Sensory Exam: normal sensation Other: A&O x4 present, very somnolent and falls asleep easily during exam however also awakens easily Extrem: General: normal to inspection Psych: Mental Status: mental status grossly normal Affect: normal affect Other: Fair insight and judgment, pleasant DS: Data Data Completed and Pending Labs on day of discharge: Labs from last 24 hours 06/23/25 06/22/25 06/20/25 05:50 05:18 16:05 WBC 9.3 RBC 4.40 L Hgb 12.6 L Hct 39.1 L Pending 37.9 MCV 88.9 MCH 28.6 MCHC 32.2 RDW 15.5 H Plt Count 232 MPV 9.8 Sodium 134 L Potassium 3.9 Chloride 105 Carbon Dioxide 20 L Anion Gap 9 BUN 25 H Creatinine 1.40 H Estim Creat Clear Calc 36 Estimated GFR 48 L Glucose 90 Calcium 9.3 RBC Folate Hemolysate Pending RBC Folate Pending Preliminary micro results at discharge 06/18/25 15:32 Blood Culture - Preliminary Blood 06/18/25 14:26 Blood Culture - Preliminary Blood Discharge Plan Discharge Attending physician on discharge: Hardik Marshall Consulting providers: Tyson Wild Discharging Clinician: Viki Avery Patient Disposition: SNF Activity: march shower Diet: heart healthy Discharge Instructions: You were admitted for pneumonia and decrease mobility. You were treated and completed the course of antibiotics for pneumonia and possible diverticulitis that was found on CT scan. You had neurology consult who recommended EMG nerve study of the lower limbs that could be done as an outpt and most likely a prolonged course of rehab gait strengthening. Please f/u with PCP for obstructive sleep apnea eval. F.u with PCP/neurology about prednisone as well- to determine the end date and goal of care for this medication. Patient Language: Slovenian Stand Alone Forms: General Discharge Information Follow-up/Referrals: Kaye Reynolds PA-C [Primary Care Provider, Family Practice] - 2 Weeks Tyson Wild MD [Physician, Neurology] - 2 Weeks Discharge Medications: Continued allopurinol 300 mg tablet 300 mg PO DAILY allopurinol 100 mg tablet 100 mg PO DAILY Rx Instructions: Patient takes daily in addition to Allopurinol 300 mg tablets PO Daily donepezil 10 mg tablet 10 mg PO HS lidocaine 4 % adhesive patch,medicated 1 patch topical DAILY Rx Instructions: to posterior neck tramadol 50 mg tablet 50 mg PO QID PRN (Reason: pain) furosemide [Lasix] 20 mg tablet 20 mg PO QAM amlodipine 2.5 mg tablet 2.5 mg PO DAILY Qty: 90 0RF olmesartan 40 mg tablet 40 mg PO DAILY Qty: 90 0RF clotrimazole-betamethasone 1-0.05 % cream 1 applic topical BID Qty: 45 0RF metoprolol succinate 50 mg tablet extended release 24 hr 50 mg PO DAILY Qty: 90 0RF pregabalin [Lyrica] 50 mg capsule 50 mg PO BID Qty: 180 0RF prednisone 2.5 mg tablet 2.5 mg PO DAILY Qty: 30 0RF Date of admission: 06/18/25 17:18 Primary Care Provider: Kaye Reynolds Admitting Provider: Phan Villeda Attending physician on admission: Phan Villeda Condition: Stable Quality VTE Prophylaxis VTE prophylaxis: pharmacologic ordered Hospitalist MIPS Heart Failure (Exclusion) Patient has history of Heart Transplant or Left Ventricular Assistive Device?: No IF YES, STOP HERE Heart Failure (Qualifier) Patient has current or prior documentation of LVEF less than or equal to 40%, or mod/servere depressed LVSF?: No IF NO, STOP HERE
[2025-06-23] MEDS: OLMESARTAN MEDOXOMIL 20 MG TABLET 40 MG PO (09:25)
[2025-06-23 09:26] VITALS: PULSE 88
[2025-06-23] MEDS: PREGABALIN (*CRX) 50 MG CAPSULE PO (09:26)
[2025-06-23] MEDS: FUROSEMIDE 20 MG TABLET PO (09:26)
[2025-06-23] MEDS: METOPROLOL SUCCINATE EXT REL 50 MG TABCR PO (09:26)
[2025-06-23] MEDS: LIDOCAINE 5% PATCH 1 PATCH TRANSDERM (09:27)
[2025-06-23] MEDS: ENOXAPARIN 40 MG/0.4 ML SYRINGE SUB-Q (09:27)
[2025-06-23 13:08] LABS: Folate, Hemolysate 346.0 ng/mL (Not Estab.)
== END 2025-06-23 14:05 | DRG 195 ==
LOC: ANHED 16:44 → ANH3MEDSUR 18:34
PROVIDERS: Psychiatry & Neurology Neurology; Student in an Organized Health Care Education/Training Program; Admitting Provider General Practice; Emergency Provider Emergency Medicine; PCP Physician Assistant Medical; Visit Provider Nurse Practitioner
DX: J18.9 Pneumonia, unspecified organism (principal); E78.5 Hyperlipidemia, unspecified; I71.9 Aortic aneurysm of unspecified site, without rupture; I48.91 Unspecified atrial fibrillation; I12.9 Hypertensive chronic kidney disease with stage 1 through stage 4 chronic kidney disease, or unspecified chronic kidney disease; M10.9 Gout, unspecified; M16.12 Unilateral primary osteoarthritis, left hip; N28.9 Disorder of kidney and ureter, unspecified; N18.31 Chronic kidney disease, stage 3a; R26.81 Unsteadiness on feet; R62.7 Adult failure to thrive; Z74.01 Bed confinement status; Z96.651 Presence of right artificial knee joint; Z20.822 Contact with and (suspected) exposure to COVID-19
CPT/HCPCS: 36415; 36600; 70553; 71045; 71275; 74177; 80048; 80053; 80061; 80179; 81001; 82607; 82747; 82805; 83605; 83690; 83735; 83880; 84443; 84484; 85018; 85025; 85027; 85610; 85730; 87040; 87637; 87641; 93005; 96365; 96367; 97110; 97161; 97166; 97530; 97535; 99285; A9270; A9577; J0456; J0696; J1650; J1836; J7030; J7050; Q9967